=== PATIENT | male | born 1955 | race Caucasian/White ===

== ENCOUNTER 2018-07-03 10:30 | Emergency (ER) | payer OTHER, SELFPAY ==
[2018-07-03 10:35] VITALS: BP 195/80; PULSE 58; RESP 17; TEMP 36.9; O2SAT 100
--- NOTE | 2018-07-03 10:45 | ED.GENADULT ---
HPI - General Adult General Chief complaint: Hypertension Stated complaint: HYPERTENSION Time Seen by Provider: 07/03/18 10:39 Source: patient Mode of arrival: ambulatory Limitations: no limitations History of Present Illness HPI narrative: Patient is a 62-year-old male with a history of hypertension and leukemia not currently on any treatment and is on metoprolol and amlodipine and lisinopril. States that for the past week or so he has not felt very well. No specific symptoms. No chest pain. States that he does get some lightheadedness occasionally. States that he took his blood pressure this morning and the systolic was greater than 200 and the diastolic was greater than 100. He states that he normally runs in the 130s to 150s on his systolic. Patient called the nurse advice line informed him to come to the emergency department for evaluation. Related Data Allergies Allergy/AdvReac Type Severity Reaction Status Date / Time OFATUMUMAB Allergy Unknown pronounced Uncoded 02/17/18 12:30 vaso dilation Review of Systems Constitutional Reports fatigue and Denies fever(s) ENT Ears, Nose, Mouth, and Throat: Denies vertigo and Reports dizziness Cardiovascular Denies chest pain, Denies palpitations and Denies dyspnea Respiratory Denies cough and Denies dyspnea Gastrointestinal Gastrointestinal: Denies abdominal pain, Denies nausea and Denies vomiting Genitourinary Denies dysuria Musculoskeletal Denies myalgias, Denies arthralgias and Denies muscle cramps Integumentary/Breasts Denies lesions and Denies rash Neurologic Denies confusion, Denies vertigo and Reports dizziness Psychiatric Denies confusion Endocrine Reports fatigue and Denies palpitations Hematologic/Lymphatic Denies easy bleeding and Denies easy bruising [facility] Medical History Hypertension (Acute) Leukemia (Acute) Surgical History No pertinent past surgical history (Acute) Social History Smoking Status: Former smoker Exam Initial Vital Signs Initial Vital Signs: Vital Signs Temperature 98.4 F 07/03/18 10:35 Pulse Rate 58 L 07/03/18 10:35 Respiratory Rate 17 07/03/18 10:35 Blood Pressure 195/80 H 07/03/18 10:35 Pulse Oximetry 100 07/03/18 10:35 Const General: cooperative, healthy appearing, comfortable, well developed, well groomed and No acute distress Orientation: alert, awake and oriented x3 HENMT Head: normal to inspection and normocephalic Resp Effort & Inspection: normal respiratory effort Auscultation: clear to auscultation bilaterally Cardio Rate: regular rate Rhythm: regular rhythm Heart Sounds: murmur systolic III/ Pulses: radial pulses present GI Inspection: non-distended Palpation: soft, No firm and No tender Skin Lesions: no lesions Rashes: no rashes Neuro General: alert, awake and oriented x3 Cognition: normal cognition Speech: speech normal Gait: normal gait Motor: muscle tone normal throughout Sensory Exam: no sensory deficits noted Extrem General: normal to inspection, full ROM and No edema Psych Appearance: grossly normal and well kempt Course Orders Ordered: ED Orders 07/03/18 10:45 Basic Metabolic Panel Stat Complete Blood Count AUTO DIFF Stat 07/03/18 10:46 EKG-12 Lead Stat 07/03/18 11:09 XR chest 1V Stat Vital Signs - 8 hr 07/03/18 10:35 07/03/18 10:53 07/03/18 11:47 Temperature 98.4 F Pulse Rate 58 L 59 L 56 L Respiratory Rate 17 13 Blood Pressure 195/80 H Blood Pressure [Left Arm] 173/72 H 137/72 H Pulse Oximetry 100 99 95 07/03/18 12:07 07/03/18 12:39 Temperature Pulse Rate 55 L 53 L Respiratory Rate 14 15 Blood Pressure Blood Pressure [Left Arm] 135/72 H 140/67 H Pulse Oximetry 95 99 Medical Decision Making [facility] Narrative Medical decision making narrative: Patient's blood pressure improved while being here in the ER. He does have leukemia and white blood cell count is 70 is about his baseline. He has no symptoms while here. Have low suspicion for ACS, subarachnoid hemorrhage, renal failure, congestive heart failure. 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 He was given return precautions. He expressed understanding and agreement with plan. Lab Data Result diagrams: 07/03/18 10:45 07/03/18 10:45 Lab Results 07/03/18 07/03/18 Range/Units 10:45 10:45 WBC 70.1 H* (4.5-11.0) X10^3/uL RBC 4.42 L (4.5-5.9) X10^6/uL Hgb 14.2 (13.5-17.5) g/dL Hct 41.9 (41-53) % MCV 94.8 (80-100) fL MCH 32.2 (26-34) PG MCHC 34.0 (30-36) % RDW 15.8 H (11.6-14.8) % Plt Count 104 L (150-400) X10^3/uL Neut % (Auto) Not Reportable Lymph % (Auto) Not Reportable Conway % (Auto) Not Reportable Eos % (Auto) Not Reportable Baso % (Auto) Not Reportable Total Counted 100 Seg Neutrophils % 10.0 L (38-70) % Lymphocytes % (Manual) 83.0 H (25-45) % Atypical Lymphs % 1.0 H ( - 0) % Monocytes % (Manual) 4.0 (2-11) % Basophils % (Manual) 1.0 (0-1) % Metamyelocytes % 1.0 H (-0) % Neutrophils # (Manual) 7010 H (8867-8488) /uL Smudge Cells 2+ H RBC Morphology Not Reportable Anisocytosis 1+ H Sodium 142 (137-145) mmol/L Potassium 4.8 (3.4-5.1) mmol/L Chloride 101 (98-107) mmol/L Carbon Dioxide 32 (22-32) mmol/L BUN 16 (9-20) mg/dL Creatinine 1.10 (0.66-1.25) mg/dL Estimated GFR > 60.0 (>60) mL/min BUN/Creatinine Ratio 14.5 (6-22) Glucose 176 H (80-110) mg/dL Calcium 8.9 (8.4-10.2) mg/dL Imaging Data Chest x-ray: Radiologist's impression: [address] [address] XRay Report Signed Patient: Jona Hernadez BUZZ#: [id number] : 3Acct:[id number] Age/Sex: 62 / MDate of Service: 07/03/18 Loc: ED Accession Number: [id number] Procedure: XR chest 1V Ordering Provider: Lanker,Bong D.O. PROCEDURE: XR CHEST 1V INDICATIONS: SOB TECHNIQUE: One view of the chest was acquired. COMPARISON: [facility], CHEST 2 VIEW, 01/05/2015, 15:16. [facility], CHEST 2 VIEW, 12/26/2014, 20:43. FINDINGS: Surgical changes and devices: None. Lungs and pleura: No pleural effusions or pneumothorax. Lungs are clear. Mediastinum: Mediastinal contours appear normal. Heart size is normal. Bones and chest wall: No suspicious bony lesions. Overlying soft tissues appear unremarkable. IMPRESSION: Normal for age, source of current symptoms is not seen. Dictated by: Ranulfo Osorio M.D. on 07/03/2018 at 12:16 Approved by: Ranulfo Osorio M.D. on 07/03/2018 at 12:17 ECG Data Attestation: I personally reviewed and interpreted this ECG as follows: Prior ECG tracings: not available for review Interpretation: Sinus bradycardia Ventricular rate of 58 Left bundle branch block Normal axis Normal QTC Discharge Plan Departure Patient Disposition: Home Clinical Impression: Hypertension, Leukemia Instructions: Essential Hypertension Activity Restrictions/Additional Instructions: Recommend that you follow up with your tracer bullet section supervisor and your oncologist regarding your labs today. Take your blood pressure at home like we discussed. Return to the emergency department for any new or worsening symptoms
[2018-07-03 10:53] VITALS: BP 173/72; PULSE 59; RESP 13; O2SAT 99
--- NOTE | 2018-07-03 11:09 | DI.RAD.S_ITS ---
PROCEDURE: XR CHEST 1V INDICATIONS: SOB TECHNIQUE: One view of the chest was acquired. COMPARISON: [facility], CHEST 2 VIEW, 01/05/2015, 15:16. [facility], CHEST 2 VIEW, 12/26/2014, 20:43. FINDINGS: Surgical changes and devices: None. Lungs and pleura: No pleural effusions or pneumothorax. Lungs are clear. Mediastinum: Mediastinal contours appear normal. Heart size is normal. Bones and chest wall: No suspicious bony lesions. Overlying soft tissues appear unremarkable. IMPRESSION: Normal for age, source of current symptoms is not seen. Dictated by: Ranulfo Osorio M.D. on 07/03/2018 at 12:16 Approved by: Ranulfo Osorio M.D. on 07/03/2018 at 12:17
[2018-07-03 11:20] LABS: BUN Creatinine Ratio 14.5 (6-22); Blood Urea Nitrogen 16 mg/dL (9-20); Calcium 8.9 mg/dL (8.4-10.2); Carbon Dioxide 32 mmol/L (22-32); Chloride 101 mmol/L (98-107); Estimated Glomerular Filt Rate > 60.0 mL/min (>60); Glucose 176 mg/dL (80-110); HEMOLYSIS < 15 (0-50); Potassium 4.8 mmol/L (3.4-5.1); Sodium 142 mmol/L (137-145)
[2018-07-03 11:22] LABS: Hematocrit 41.9 % (41-53); Hemoglobin 14.2 g/dL (13.5-17.5); Mean Corpuscular Hemoglobin 32.2 PG (26-34); Mean Corpuscular Volume 94.8 fL (80-100); Platelet Count 104 X10^3/uL (150-400); Red Blood Cell Count 4.42 X10^6/uL (4.5-5.9); Red Cell Distribution Width 15.8 % (11.6-14.8)
[2018-07-03 11:30] LABS: Add Manual Diff / Slide Review YES; White Blood Cell Count 70.1 X10^3/uL (4.5-11.0)
[2018-07-03 11:47] VITALS: BP 137/72; PULSE 56; O2SAT 95
[2018-07-03 12:07] VITALS: BP 135/72; PULSE 55; RESP 14; O2SAT 95
[2018-07-03 12:34] LABS: Neutrophils Absolute Manual 7010 /uL (3000-5900); Smudge Cells 2+; Total Cells Counted 100
[2018-07-03 12:35] LABS: Anisocytosis 1+
[2018-07-03 12:39] VITALS: BP 140/67; PULSE 53; RESP 15; O2SAT 99
[2018-07-03 12:56] VITALS: BP 140/67; PULSE 50; RESP 13; O2SAT 99
== END 2018-07-03 12:58 | disposition home or self-care (01) ==
PROVIDERS: Emergency Provider Emergency Medicine
DX: C95.90 Leukemia, unspecified not having achieved remission (principal); I10 Essential (primary) hypertension
CPT/HCPCS: 36591; 71045; 80048; 85025; 93005; 93010; 93041; 99283; 99285

== ENCOUNTER → 2018-10-05 11:01 | Outpatient (CLI) | payer MEDICARE, OTHER, SELFPAY ==
[2018-10-05 12:33] LABS: Cholesterol 166 mg/dL (140-199); HDL Cholesterol 28 mg/dL (40-60); LDL Cholesterol Calculated 66 mg/dL (<100); Triglycerides 359 mg/dL (35-150)
[2018-10-05 14:20] LABS: Vitamin D 25 Hydroxy (D3) 30.8 ng/mL (30.0-100.0)
== END ==
PROVIDERS: PCP Student in an Organized Health Care Education/Training Program; Visit Provider Student in an Organized Health Care Education/Training Program
DX: E55.9 Vitamin D deficiency, unspecified (principal); Z13.220 Encounter for screening for lipoid disorders
CPT/HCPCS: 36415; 80061; 82306

== ENCOUNTER → 2018-10-19 07:28 | Outpatient (CLI) | payer MEDICARE, OTHER, SELFPAY ==
--- NOTE | 2018-10-19 07:29 | DI.US.S_ITS ---
PROCEDURE: US ABD AORTA ANEURYSM SCREEN INDICATIONS: HISTORY OF SMOKING TECHNIQUE: Real time scanning was performed of the aorta and iliac arteries, with image documentation. COMPARISON: [facility], CT, THORAX WITHOUT CONTRAST, 12/27/2014, 9:43. FINDINGS: Aorta: Proximal aortic is obscured by overlying bowel gas. Mid-aorta measures 2.1 cm. Distal aortic diameter is 1.8 cm. Iliac arteries: Right common iliac artery measures 0.9 cm. Left common iliac artery measures 0.9 cm. IMPRESSION: No evidence of abdominal aortic aneurysm. Dictated by: Levon Monson M.D. on 10/19/2018 at 8:15 Approved by: Levon Monson M.D. on 10/19/2018 at 8:17
== END ==
PROVIDERS: PCP Student in an Organized Health Care Education/Training Program; Visit Provider Student in an Organized Health Care Education/Training Program
DX: Z13.6 Encounter for screening for cardiovascular disorders (principal); Z87.891 Personal history of nicotine dependence
CPT/HCPCS: 76706

== ENCOUNTER → 2018-11-22 09:27 | Outpatient (CLI) | payer MEDICARE, OTHER, SELFPAY ==
[2018-11-22 10:06] LABS: Hematocrit 36.6 % (41-53); Mean Corpuscular HGB Conc 32.8 % (30-36); Mean Corpuscular Volume 97.6 fL (80-100); Platelet Count 77 X10^3/uL (150-400); Red Blood Cell Count 3.75 X10^6/uL (4.5-5.9)
[2018-11-22 10:15] LABS: Add Manual Diff / Slide Review YES; White Blood Cell Count 292.9 X10^3/uL (4.5-11.0)
[2018-11-22 10:20] LABS: BUN Creatinine Ratio 20.8 (6-22); Blood Urea Nitrogen 25 mg/dL (9-20); Calcium 8.8 mg/dL (8.4-10.2); Carbon Dioxide 29 mmol/L (22-32); Chloride 98 mmol/L (98-107); Estimated Glomerular Filt Rate > 60.0 mL/min (>60); Glucose 141 mg/dL (80-110); HEMOLYSIS 47 (0-50); Sodium 137 mmol/L (137-145)
[2018-11-22 10:25] LABS: Potassium 5.9 mmol/L (3.4-5.1)
[2018-11-22 10:29] LABS: Smudge Cells 1+; Total Cells Counted 100
[2018-11-22 10:38] LABS: Neutrophils Absolute Manual 87870 /uL (3000-5900); Nucleated Red Blood Cells 5 #/Diff
[2018-11-22 10:39] LABS: Anisocytosis 3+; Ovalocytes 2+; Poikilocytosis 2+; Polychromasia 2+
== END ==
PROVIDERS: Family Provider Internal Medicine Medical Oncology; PCP Student in an Organized Health Care Education/Training Program; Visit Provider Internal Medicine Medical Oncology
DX: C91.10 Chronic lymphocytic leukemia of B-cell type not having achieved remission (principal)
CPT/HCPCS: 36415; 80048; 85025

== ENCOUNTER → 2018-11-29 10:41 | Outpatient (CLI) | payer MEDICARE, OTHER, SELFPAY ==
[2018-11-29 12:27] LABS: Hematocrit 34.3 % (41-53); Hemoglobin 11.3 g/dL (13.5-17.5); Mean Corpuscular HGB Conc 32.9 % (30-36); Mean Corpuscular Hemoglobin 32.2 PG (26-34); Mean Corpuscular Volume 97.6 fL (80-100); Platelet Count 76 X10^3/uL (150-400); Red Blood Cell Count 3.52 X10^6/uL (4.5-5.9); Red Cell Distribution Width 16.6 % (11.6-14.8)
[2018-11-29 13:55] LABS: Add Manual Diff / Slide Review YES
[2018-11-29 14:21] LABS: Neutrophils Absolute Manual 9840 /uL (3000-5900); Smudge Cells 2+; Total Cells Counted 100
== END ==
PROVIDERS: PCP Student in an Organized Health Care Education/Training Program; Visit Provider Internal Medicine Medical Oncology
DX: C91.12 Chronic lymphocytic leukemia of B-cell type in relapse (principal)
CPT/HCPCS: 36415; 85025

== ENCOUNTER → 2018-12-06 08:48 | Outpatient (CLI) | payer MEDICARE, OTHER, SELFPAY ==
[2018-12-06 10:07] LABS: Hematocrit 33.6 % (41-53); Hemoglobin 11.1 g/dL (13.5-17.5); Mean Corpuscular HGB Conc 33.2 % (30-36); Mean Corpuscular Hemoglobin 32.3 PG (26-34); Mean Corpuscular Volume 97.5 fL (80-100); Platelet Count 94 X10^3/uL (150-400); Red Blood Cell Count 3.44 X10^6/uL (4.5-5.9); Red Cell Distribution Width 16.5 % (11.6-14.8)
[2018-12-06 10:39] LABS: Add Manual Diff / Slide Review YES
[2018-12-06 10:40] LABS: White Blood Cell Count 248.8 X10^3/uL (4.5-11.0)
[2018-12-06 10:54] LABS: Neutrophils Absolute Manual 4976 /uL (3000-5900); Total Cells Counted 100
[2018-12-06 10:55] LABS: Anisocytosis 1+; Smudge Cells 2+
== END ==
PROVIDERS: Family Provider Student in an Organized Health Care Education/Training Program; PCP Student in an Organized Health Care Education/Training Program; Visit Provider Internal Medicine Medical Oncology
DX: C91.12 Chronic lymphocytic leukemia of B-cell type in relapse (principal)
CPT/HCPCS: 36415; 85025

== ENCOUNTER 2018-12-14 11:36 | Emergency (ER) | payer MEDICARE, OTHER, SELFPAY ==
[2018-12-14 11:42] VITALS: BP 140/75; PULSE 65; RESP 14; TEMP 36.1; O2SAT 98
--- NOTE | 2018-12-14 11:55 | DI.RAD.S_ITS ---
PROCEDURE: XR CHEST 1V INDICATIONS: suspected sepsis TECHNIQUE: One view of the chest was acquired. COMPARISON: [facility], CR, XR CHEST 1V, 07/03/2018, 11:18. FINDINGS: Surgical changes and devices: None. Lungs and pleura: Lungs are clear. No pleural effusions or pneumothorax. Mediastinum: Mediastinal contours appear normal. Heart size is normal. Bones and chest wall: No suspicious bony lesions. Overlying soft tissues appear unremarkable. IMPRESSION: No acute cardiopulmonary disease process. Dictated by: Sarah Guadarrama MD, PhD on 12/14/2018 at 12:09 Approved by: Sarah Guadarrama MD, PhD on 12/14/2018 at 12:10
[2018-12-14 12:27] LABS: INR 1.3 (0.9-1.3); Prothrombin Time 14.8 SECONDS (10.1-12.7)
[2018-12-14 12:30] LABS: PTT Partial Thromboplastin Tim 31 SECONDS (26.4-36.2)
[2018-12-14 12:32] LABS: Hematocrit 33.1 % (41-53); Hemoglobin 10.9 g/dL (13.5-17.5); Mean Corpuscular HGB Conc 32.9 % (30-36); Mean Corpuscular Volume 97.4 fL (80-100); Platelet Count 89 X10^3/uL (150-400); Red Cell Distribution Width 16.7 % (11.6-14.8)
[2018-12-14 12:33] LABS: Alanine Aminotransferase 399 IU/L (21-72); Albumin 4.5 g/dL (3.5-5.0); Albumin Globulin Ratio 1.7 (1.0-2.8); Alkaline Phosphatase 134 U/L (38-126); Aspartate Aminotransferase 166 IU/L (17-59); Bilirubin Total 1.5 mg/dL (0.2-1.3); Blood Urea Nitrogen 24 mg/dL (9-20); Calcium 8.9 mg/dL (8.4-10.2); Carbon Dioxide 26 mmol/L (22-32); Chloride 96 mmol/L (98-107); Estimated Glomerular Filt Rate > 60.0 mL/min (>60); Globulin 2.7 g/dL (1.7-4.1); Glucose 132 mg/dL (80-110); HEMOLYSIS < 15 (0-50); Lipase 32 U/L (23-300); Potassium 4.7 mmol/L (3.4-5.1); Sodium 134 mmol/L (137-145); Total Protein 7.2 g/dL (6.3-8.2)
[2018-12-14 12:37] LABS: Add Manual Diff / Slide Review YES; White Blood Cell Count 301.9 X10^3/uL (4.5-11.0)
--- NOTE | 2018-12-14 12:44 | PC.NURSE ---
blood in urine/ dark ely colored. ua sent
[2018-12-14 12:49] LABS: Neutrophils Absolute Manual 12076 /uL (3000-5900); Total Cells Counted 100
[2018-12-14 12:51] LABS: Anisocytosis 1+; Macrocytosis 1+; Procalcitonin 5.62 ng/mL (<0.5)
[2018-12-14 12:58] VITALS: BP 135/55; PULSE 64; RESP 13; O2SAT 97
[2018-12-14 13:15] LABS: Lactate (Lactic Acid) 1.1 mmol/L (0.7-2.1)
[2018-12-14 13:19] LABS: Appearance Urine UA CLOUDY; Bilirubin Urine UA 1+ (NEGATIVE); Glucose Urine UA NEGATIVE (Negative); Ketones Urine UA NEGATIVE (NEGATIVE); Leukocyte Esterase Urine UA TRACE (NEGATIVE); Nitrite Urine UA NEGATIVE (Negative); Occult Blood Urine UA 3+ (Negative); Protein Urine UA 2+ (Negative); Specific Gravity Urine UA 1.025 (1.000-1.035); Urobilinogen Urine UA 0.2 E.U./dL (0.2); pH Urine UA 5.5 (4.5-8.0)
[2018-12-14 13:21] LABS: Color Urine UA RED
[2018-12-14 13:26] LABS: Ictotest Urine Negative (Negative)
[2018-12-14 13:28] LABS: Amorphous Sediment Urine 1+; Bacteria Urine Few (2-10); Culture Indicated Urine Specimen Cultured; RBC Urine >100/HPF (0-5/HPF); Squamous Epithelial Cell Urine 0-1 /HPF; WBC Urine 5-10/HPF (0-5/HPF)
[2018-12-14] MEDS: SODIUM CHLORIDE 0.9% 1,000 ML 1000 ML IV (13:37)
[2018-12-14 14:00] VITALS: BP 157/65; PULSE 63; RESP 17
--- NOTE | 2018-12-14 14:09 | ED.FEVER ---
HPI - Fever General Chief Complaint: Fever Stated Complaint: UNABLE TO PEE AND BIT OF BLOOD WHEN ABLE TO GO Time Seen by Provider: 12/14/18 11:50 Source: patient and family Mode of arrival: ambulatory Limitations: no limitations History of Present Illness HPI Narrative: 63-year-old male presents to the emergency department with his and a chief complaint of episodes of fever for the past few days. He carries the diagnosis of CLL and is managed by the [facility]. His last chemotherapy was 2 days ago. He denies any specific symptoms such as runny nose, sore throat or cough. He has no headache, chest pain or shortness of breath. He did have an episode of abdominal pain a few days ago but that has since resolved. He denies nausea, vomiting or diarrhea. He does state that he had an inability to urinate earlier today and had on occasion past small blood clots. He admits to mild dysuria. He was sent here by his oncologist. MD complaint: fever Onset (ago): minute(s) Temperature Source: oral Context: on chemotherapy Associated symptoms: rigors Relieving factors: nothing Exacerbating factors: nothing Treatments prior to arrival fever: none Related Data Home Medications Medication Instructions Recorded Confirmed amlodipine 5 mg tablet 5 mg PO QPM 10/05/18 12/14/18 diphenhydramine 50 mg capsule 50 mg PO BEDTIME 10/05/18 12/14/18 lisinopril 20 mg tablet 20 mg PO QPM 10/05/18 12/14/18 aspirin 81 mg tablet,delayed 81 mg PO DAILY 10/06/18 12/14/18 release acalabrutinib [Calquence] 100 mg PO BID 12/14/18 12/14/18 allopurinol 300 mg PO DAILY 12/14/18 12/14/18 famotidine 1 tab PO DAILY 12/14/18 12/14/18 ibrutinib [Imbruvica] 240 mg PO BID 12/14/18 12/14/18 metoprolol succinate 75 mg PO BID 12/14/18 12/14/18 Previous Rx's Medication Instructions Recorded atorvastatin 40 mg tablet 40 mg PO BEDTIME #30 tab 10/06/18 cephalexin [Keflex] 500 mg PO QID 7 Days #28 cap 12/14/18 tamsulosin [Flomax] 0.4 mg PO DAILY #10 cap 12/14/18 Allergies Allergy/AdvReac Type Severity Reaction Status Date / Time OFATUMUMAB Allergy Unknown pronounced Uncoded 12/14/18 11:48 vaso dilation Review of Systems Constitutional Denies chills, Reports fever(s), Denies lethargy and Denies weakness Eyes Denies change in vision, Denies eye discharge, Denies irritation and Denies loss of vision ENT Ears, Nose, Mouth, and Throat: Denies change in voice, Denies neck pain and Denies sore throat Cardiovascular Denies chest pain, Denies irregular heart rhythm, Denies lightheadedness, Denies palpitations, Denies dyspnea, Denies dyspnea on exertion and Denies orthopnea Respiratory Denies cough, Denies dyspnea, Denies dyspnea on exertion and Denies wheezing Gastrointestinal Gastrointestinal: Denies abdominal pain, Denies change in bowel habits, Denies diarrhea, Denies nausea and Denies vomiting Genitourinary Reports hematuria, Denies flank pain, Reports urinary hesitancy, Denies urinary incontinence and Denies urinary urgency Musculoskeletal Denies neck pain Integumentary/Breasts Denies pruritus, Denies erythema, Denies rash and Denies wounds Neurologic Denies confusion, Denies loss of vision and Denies weakness Psychiatric Denies anxiety, Denies confusion, Denies depression, Denies homicidal ideation and Denies suicidal ideation Endocrine Denies palpitations Hematologic/Lymphatic Denies easy bruising Allergic/Immunologic Denies wheezing [facility] Medical History Hypertension (Acute) Leukemia (Acute) Surgical History History of allogeneic stem cell transplant (Acute) No pertinent past surgical history (Acute) Social History Smoking Status: Former smoker Social History Smoking Status: Former smoker Exam Narrative Exam Narrative: GENERAL: This is a well-nourished, well-developed patient, in mild distress. HEAD: Atraumatic. Normocephalic. No temporal or scalp tenderness. EYES: Pupils equal round and reactive. Extraocular motions intact. No scleral icterus. No injection or drainage. ENT: Nose without bleeding, purulent drainage or septal hematoma. Throat without erythema, tonsillar hypertrophy or exudate. Uvula midline. Airway patent. NECK: Trachea midline. No JVD or lymphadenopathy. Supple, nontender, no meningeal signs. CARDIOVASCULAR: Regular rate and rhythm without murmurs, gallops, or rubs. RESPIRATORY: Clear to auscultation. Breath sounds equal bilaterally. No wheezes, rales, or rhonchi. GASTROINTESTINAL: Abdomen soft, non-tender, nondistended. No hepato-splenomegaly, or palpable masses. No guarding. EXTREMITIES: No clubbing, cyanosis, or edema. No joint tenderness, effusion, or edema noted. BACK: Nontender without deformity or crepitance. No flank tenderness. NEURO: AOx3. SKIN: No rash or erythema. Initial Vital Signs Initial Vital Signs: Vital Signs Temperature 97.0 F L 12/14/18 11:42 Pulse Rate 65 12/14/18 11:42 Respiratory Rate 14 12/14/18 11:42 Blood Pressure 140/75 12/14/18 11:42 Pulse Oximetry 98 12/14/18 11:42 Course Orders Ordered: ED Orders 12/14/18 11:55 XR chest 1V Stat 12/14/18 12:10 Complete Blood Count AUTO DIFF Stat Comprehensive Metabolic Panel Stat Lipase Stat Partial Thromboplastin Time Stat Procalcitonin Stat Prothrombin Time INR Stat 12/14/18 12:25 Blood Culture Stat Lactate (Lactic Acid) Stat 12/14/18 12:38 Ictotest Urine Stat Urinalysis and Microscopic Stat Urine Culture Stat 12/14/18 14:30 Influenza A and B by PCR Rapid Stat Discontinued Medications Sodium Chloride (Normal Saline 0.9%) 1,000 mls @ 1,000 mls/hr IV BOLUS ONE Stop: 12/14/18 12:54 Last Infusion: 12/14/18 15:50 Dose: 0 mls/hr Admin: 12/14/18 13:37 Dose: 1,000 mls/hr Ceftriaxone Sodium/Dextrose (Rocephin) 1 gm in 50 mls @ 100 mls/hr IV NOW ONE Stop: 12/14/18 14:45 Last Infusion: 12/14/18 15:50 Dose: 0 mls/hr Admin: 12/14/18 14:36 Dose: 100 mls/hr Reevaluation(s) Reevaluation #1: Bladder scan notes greater than 500 cc. Shaw catheter placed which notes clear reddish urine with occasional clots Consultations Consultation #1: A spoken to patient's oncologist whom is comfortable with patient going home after 1 dose of IV antibiotics on a prescription to treat his UTI. He would prefer the patient not Shaw catheter but believes that to my discretion, my fear being that patient will return with recurrence of urinary retention. I will place a call to Urology for consultation Urology at the [facility] agree that the placed and a Shaw catheter is most appropriate to keep the patient out of the emergency department moving forward. They are happy to see him in follow-up and we will treat the patient for urinary tract infection Vital Signs - 8 hr 12/14/18 11:42 12/14/18 12:58 12/14/18 14:00 Temperature 97.0 F L Pulse Rate 65 64 63 Respiratory Rate 14 13 17 Blood Pressure 140/75 Blood Pressure [Left Arm] 135/55 L 157/65 H Pulse Oximetry 98 97 12/14/18 15:00 Temperature Pulse Rate 66 Respiratory Rate 16 Blood Pressure Blood Pressure [Left Arm] 150/61 H Pulse Oximetry 98 MDM - Fever Lab Data Result diagrams: 12/14/18 12:10 12/14/18 12:10 Lab Results 12/14/18 12/14/18 12/14/18 Range/Units 12:10 12:10 12:10 WBC 301.9 H* (4.5-11.0) X10^3/uL RBC 3.40 L (4.5-5.9) X10^6/uL Hgb 10.9 L (13.5-17.5) g/dL Hct 33.1 L (41-53) % MCV 97.4 (80-100) fL MCH 32.0 (26-34) PG MCHC 32.9 (30-36) % RDW 16.7 H (11.6-14.8) % Plt Count 89 L (150-400) X10^3/uL Neut % (Auto) Not Reportable Lymph % (Auto) Not Reportable Henry % (Auto) Not Reportable Eos % (Auto) Not Reportable Baso % (Auto) Not Reportable Lymph # (Auto) Not Reportable Henry # (Auto) Not Reportable Baso # (Auto) Not Reportable Total Counted 100 Seg Neutrophils % 4.0 L (38-70) % Lymphocytes % (Manual) 9.0 L (25-45) % Atypical Lymphs % 87.0 H ( - 0) % Neutrophils # (Manual) 28346 H (4448-3047) /uL RBC Morphology See below Anisocytosis 1+ H Macrocytosis 1+ H PT 14.8 H (10.1-12.7) SECONDS INR 1.3 (0.9-1.3) APTT 31 (26.4-36.2) SECONDS Sodium (137-145) mmol/L Potassium (3.4-5.1) mmol/L Chloride (98-107) mmol/L Carbon Dioxide (22-32) mmol/L BUN (9-20) mg/dL Creatinine (0.66-1.25) mg/dL Estimated GFR (>60) mL/min BUN/Creatinine Ratio (6-22) Glucose (80-110) mg/dL Lactate (0.7-2.1) mmol/L Calcium (8.4-10.2) mg/dL Total Bilirubin (0.2-1.3) mg/dL AST (17-59) IU/L ALT (21-72) IU/L Alkaline Phosphatase (38-126) U/L Total Protein (6.3-8.2) g/dL Albumin (3.5-5.0) g/dL Globulin (1.7-4.1) g/dL Albumin/Globulin Ratio (1.0-2.8) Lipase (23-300) U/L Procalcitonin 5.62 H (<0.5) ng/mL Urine Color Urine Appearance Urine pH (4.5-8.0) Ur Specific Duarte (1.000-1.035) Urine Protein (Negative) Urine Glucose (UA) (Negative) g/dL Urine Ketones (NEGATIVE) Urine Occult Blood (Negative) Urine Nitrate (Negative) Urine Bilirubin (NEGATIVE) Urine Ictotest (Negative) Urine Urobilinogen (0.2) E.U./dL Ur Leukocyte Esterase (NEGATIVE) Urine RBC (0-5/HPF) Urine WBC (0-5/HPF) Ur Squamous Epith Cells Amorphous Sediment Urine Bacteria (None) Ur Culture Indicated? Influenza A & B (PCR) (Negative) 12/14/18 12/14/18 12/14/18 Range/Units 12:10 12:25 12:38 WBC (4.5-11.0) X10^3/uL RBC (4.5-5.9) X10^6/uL Hgb (13.5-17.5) g/dL Hct (41-53) % MCV (80-100) fL MCH (26-34) PG MCHC (30-36) % RDW (11.6-14.8) % Plt Count (150-400) X10^3/uL Neut % (Auto) Lymph % (Auto) Henry % (Auto) Eos % (Auto) Baso % (Auto) Lymph # (Auto) Henry # (Auto) Baso # (Auto) Total Counted Seg Neutrophils % (38-70) % Lymphocytes % (Manual) (25-45) % Atypical Lymphs % ( - 0) % Neutrophils # (Manual) (0948-7912) /uL RBC Morphology Anisocytosis Macrocytosis PT (10.1-12.7) SECONDS INR (0.9-1.3) APTT (26.4-36.2) SECONDS Sodium 134 L (137-145) mmol/L Potassium 4.7 (3.4-5.1) mmol/L Chloride 96 L (98-107) mmol/L Carbon Dioxide 26 (22-32) mmol/L BUN 24 H (9-20) mg/dL Creatinine 1.20 (0.66-1.25) mg/dL Estimated GFR > 60.0 (>60) mL/min BUN/Creatinine Ratio 20.0 (6-22) Glucose 132 H (80-110) mg/dL Lactate 1.1 (0.7-2.1) mmol/L Calcium 8.9 (8.4-10.2) mg/dL Total Bilirubin 1.5 H (0.2-1.3) mg/dL AST 166 H (17-59) IU/L ALT 399 H (21-72) IU/L Alkaline Phosphatase 134 H (38-126) U/L Total Protein 7.2 (6.3-8.2) g/dL Albumin 4.5 (3.5-5.0) g/dL Globulin 2.7 (1.7-4.1) g/dL Albumin/Globulin Ratio 1.7 (1.0-2.8) Lipase 32 (23-300) U/L Procalcitonin (<0.5) ng/mL Urine Color Red Urine Appearance Cloudy Urine pH 5.5 (4.5-8.0) Ur Specific Duarte 1.025 (1.000-1.035) Urine Protein 2+ H (Negative) Urine Glucose (UA) Negative (Negative) g/dL Urine Ketones Negative (NEGATIVE) Urine Occult Blood 3+ H (Negative) Urine Nitrate Negative (Negative) Urine Bilirubin 1+ H (NEGATIVE) Urine Ictotest Negative (Negative) Urine Urobilinogen 0.2 (0.2) E.U./dL Ur Leukocyte Esterase Trace H (NEGATIVE) Urine RBC >100/hpf (0-5/HPF) Urine WBC 5-10/hpf H (0-5/HPF) Ur Squamous Epith Cells 0-1 /hpf Amorphous Sediment 1+ Urine Bacteria Few (2-10) H (None) Ur Culture Indicated? Specimen cultured Influenza A & B (PCR) (Negative) 12/14/18 Range/Units 14:30 WBC (4.5-11.0) X10^3/uL RBC (4.5-5.9) X10^6/uL Hgb (13.5-17.5) g/dL Hct (41-53) % MCV (80-100) fL MCH (26-34) PG MCHC (30-36) % RDW (11.6-14.8) % Plt Count (150-400) X10^3/uL Neut % (Auto) Lymph % (Auto) Henry % (Auto) Eos % (Auto) Baso % (Auto) Lymph # (Auto) Henry # (Auto) Baso # (Auto) Total Counted Seg Neutrophils % (38-70) % Lymphocytes % (Manual) (25-45) % Atypical Lymphs % ( - 0) % Neutrophils # (Manual) (2683-6197) /uL RBC Morphology Anisocytosis Macrocytosis PT (10.1-12.7) SECONDS INR (0.9-1.3) APTT (26.4-36.2) SECONDS Sodium (137-145) mmol/L Potassium (3.4-5.1) mmol/L Chloride (98-107) mmol/L Carbon Dioxide (22-32) mmol/L BUN (9-20) mg/dL Creatinine (0.66-1.25) mg/dL Estimated GFR (>60) mL/min BUN/Creatinine Ratio (6-22) Glucose (80-110) mg/dL Lactate (0.7-2.1) mmol/L Calcium (8.4-10.2) mg/dL Total Bilirubin (0.2-1.3) mg/dL AST (17-59) IU/L ALT (21-72) IU/L Alkaline Phosphatase (38-126) U/L Total Protein (6.3-8.2) g/dL Albumin (3.5-5.0) g/dL Globulin (1.7-4.1) g/dL Albumin/Globulin Ratio (1.0-2.8) Lipase (23-300) U/L Procalcitonin (<0.5) ng/mL Urine Color Urine Appearance Urine pH (4.5-8.0) Ur Specific Duarte (1.000-1.035) Urine Protein (Negative) Urine Glucose (UA) (Negative) g/dL Urine Ketones (NEGATIVE) Urine Occult Blood (Negative) Urine Nitrate (Negative) Urine Bilirubin (NEGATIVE) Urine Ictotest (Negative) Urine Urobilinogen (0.2) E.U./dL Ur Leukocyte Esterase (NEGATIVE) Urine RBC (0-5/HPF) Urine WBC (0-5/HPF) Ur Squamous Epith Cells Amorphous Sediment Urine Bacteria (None) Ur Culture Indicated? Influenza A & B (PCR) Negative (Negative) Discharge Plan Departure Patient Disposition: Home Clinical Impression: Acute UTI, Acute urinary retention Discharge Date/Time: 12/14/18 16:01 Interventions: ED Discharge Assessment Last Done: 12/14/18 15:51 Instructions: DI for Urinary Tract Infection (UTI) Activity Restrictions/Additional Instructions: *You have been diagnosed with [ acute UTI, urinary retention ] *What to do: *Take medications as directed *Follow up with [facility], call for an appointment. Let them know you were seen in the Emergency Department and that we ask that you be seen in follow up *Additional option for follow up is the [facility] at please contact Dr. Gonzalez's nurse at [phone] for any issues or problems or you can call the front end drupal developer for routine follow up appointment at [phone] *Return to ER if you should have any new, worsening or concerning symptoms Prescriptions: New cephalexin [Keflex] 500 mg capsule 500 mg PO QID 7 Days Qty: 28 RF: 0 tamsulosin [Flomax] 0.4 mg capsule 0.4 mg PO DAILY Qty: 10 RF: 0 No Action lisinopril 20 mg tablet 20 mg PO QPM RF: 0 amlodipine 5 mg tablet 5 mg PO QPM RF: 0 diphenhydramine HCl 50 mg capsule 50 mg PO BEDTIME RF: 0 atorvastatin 40 mg tablet 40 mg PO BEDTIME Qty: 30 RF: 5 aspirin 81 mg tablet,delayed release (DR/EC) 81 mg PO DAILY RF: 0 metoprolol succinate 50 mg tablet extended release 24 hr 75 mg PO BID RF: 0 allopurinol 300 mg tablet 300 mg PO DAILY RF: 0 ibrutinib [Imbruvica] 140 mg capsule 240 mg PO BID RF: 0 acalabrutinib [Calquence] 100 mg capsule 100 mg PO BID RF: 0 famotidine 1 tab PO DAILY RF: 0 Referrals: Michel Bran MD [Primary Care Provider] - Hay Pope MD [Non-Staff] -
[2018-12-14] MEDS: CEFTRIAXONE 1 GM/50 ML FROZ.PIGGY IV (14:36)
--- NOTE | 2018-12-14 14:39 | ED_ITS ---
HPI - Fever General Chief Complaint: Fever Stated Complaint: UNABLE TO PEE AND BIT OF BLOOD WHEN ABLE TO GO Time Seen by Provider: 12/14/18 11:50 Source: patient and family Mode of arrival: ambulatory Limitations: no limitations History of Present Illness HPI Narrative: 63-year-old male presents to the emergency department with his and a chief complaint of episodes of fever for the past few days. He carries the diagnosis of CLL and is managed by the [facility]. His last chemotherapy was 2 days ago. He denies any specific symptoms such as runny nose, sore throat or cough. He has no headache, chest pain or shortness of breath. He did have an episode of abdominal pain a few days ago but that has since resolved. He denies nausea, vomiting or diarrhea. He does state that he had an inability to urinate earlier today and had on occasion past small blood clots. He admits to mild dysuria. He was sent here by his oncologist. MD complaint: fever Onset (ago): minute(s) Temperature Source: oral Context: on chemotherapy Associated symptoms: rigors Relieving factors: nothing Exacerbating factors: nothing Treatments prior to arrival fever: none Related Data Home Medications Medication Instructions Recorded Confirmed amlodipine 5 mg tablet 5 mg PO QPM 10/05/18 12/14/18 diphenhydramine 50 mg capsule 50 mg PO BEDTIME 10/05/18 12/14/18 lisinopril 20 mg tablet 20 mg PO QPM 10/05/18 12/14/18 aspirin 81 mg tablet,delayed 81 mg PO DAILY 10/06/18 12/14/18 release acalabrutinib [Calquence] 100 mg PO BID 12/14/18 12/14/18 allopurinol 300 mg PO DAILY 12/14/18 12/14/18 famotidine 1 tab PO DAILY 12/14/18 12/14/18 ibrutinib [Imbruvica] 240 mg PO BID 12/14/18 12/14/18 metoprolol succinate 75 mg PO BID 12/14/18 12/14/18 Previous Rx's Medication Instructions Recorded atorvastatin 40 mg tablet 40 mg PO BEDTIME #30 tab 10/06/18 cephalexin [Keflex] 500 mg PO QID 7 Days #28 cap 12/14/18 tamsulosin [Flomax] 0.4 mg PO DAILY #10 cap 12/14/18 Allergies Allergy/AdvReac Type Severity Reaction Status Date / Time OFATUMUMAB Allergy Unknown pronounced Uncoded 12/14/18 11:48 vaso dilation Review of Systems Constitutional Denies chills, Reports fever(s), Denies lethargy and Denies weakness Eyes Denies change in vision, Denies eye discharge, Denies irritation and Denies loss of vision ENT Ears, Nose, Mouth, and Throat: Denies change in voice, Denies neck pain and Denies sore throat Cardiovascular Denies chest pain, Denies irregular heart rhythm, Denies lightheadedness, Denies palpitations, Denies dyspnea, Denies dyspnea on exertion and Denies orthopnea Respiratory Denies cough, Denies dyspnea, Denies dyspnea on exertion and Denies wheezing Gastrointestinal Gastrointestinal: Denies abdominal pain, Denies change in bowel habits, Denies diarrhea, Denies nausea and Denies vomiting Genitourinary Reports hematuria, Denies flank pain, Reports urinary hesitancy, Denies urinary incontinence and Denies urinary urgency Musculoskeletal Denies neck pain Integumentary/Breasts Denies pruritus, Denies erythema, Denies rash and Denies wounds Neurologic Denies confusion, Denies loss of vision and Denies weakness Psychiatric Denies anxiety, Denies confusion, Denies depression, Denies homicidal ideation and Denies suicidal ideation Endocrine Denies palpitations Hematologic/Lymphatic Denies easy bruising Allergic/Immunologic Denies wheezing [facility] Medical History Hypertension (Acute) Leukemia (Acute) Surgical History History of allogeneic stem cell transplant (Acute) No pertinent past surgical history (Acute) Social History Smoking Status: Former smoker Social History Smoking Status: Former smoker Exam Narrative Exam Narrative: GENERAL: This is a well-nourished, well-developed patient, in mild distress. HEAD: Atraumatic. Normocephalic. No temporal or scalp tenderness. EYES: Pupils equal round and reactive. Extraocular motions intact. No scleral icterus. No injection or drainage. ENT: Nose without bleeding, purulent drainage or septal hematoma. Throat without erythema, tonsillar hypertrophy or exudate. Uvula midline. Airway patent. NECK: Trachea midline. No JVD or lymphadenopathy. Supple, nontender, no meningeal signs. CARDIOVASCULAR: Regular rate and rhythm without murmurs, gallops, or rubs. RESPIRATORY: Clear to auscultation. Breath sounds equal bilaterally. No wheezes , rales, or rhonchi. GASTROINTESTINAL: Abdomen soft, non-tender, nondistended. No hepato-splenomegaly , or palpable masses. No guarding. EXTREMITIES: No clubbing, cyanosis, or edema. No joint tenderness, effusion, or edema noted. BACK: Nontender without deformity or crepitance. No flank tenderness. NEURO: AOx3. SKIN: No rash or erythema. Initial Vital Signs Initial Vital Signs: Vital Signs Temperature 97.0 F L 12/14/18 11:42 Pulse Rate 65 12/14/18 11:42 Respiratory Rate 14 12/14/18 11:42 Blood Pressure 140/75 12/14/18 11:42 Pulse Oximetry 98 12/14/18 11:42 Course Orders Ordered: ED Orders 12/14/18 11:55 XR chest 1V Stat 12/14/18 12:10 Complete Blood Count AUTO DIFF Stat Comprehensive Metabolic Panel Stat Lipase Stat Partial Thromboplastin Time Stat Procalcitonin Stat Prothrombin Time INR Stat 12/14/18 12:25 Blood Culture Stat Lactate (Lactic Acid) Stat 12/14/18 12:38 Ictotest Urine Stat Urinalysis and Microscopic Stat Urine Culture Stat 12/14/18 14:30 Influenza A and B by PCR Rapid Stat Discontinued Medications Sodium Chloride (Normal Saline 0.9%) 1,000 mls @ 1,000 mls/hr IV BOLUS ONE Stop: 12/14/18 12:54 Last Infusion: 12/14/18 15:50 Dose: 0 mls/hr Admin: 12/14/18 13:37 Dose: 1,000 mls/hr Ceftriaxone Sodium/Dextrose (Rocephin) 1 gm in 50 mls @ 100 mls/hr IV NOW ONE Stop: 12/14/18 14:45 Last Infusion: 12/14/18 15:50 Dose: 0 mls/hr Admin: 12/14/18 14:36 Dose: 100 mls/hr Reevaluation(s) Reevaluation #1: Bladder scan notes greater than 500 cc. Shaw catheter placed which notes clear reddish urine with occasional clots Consultations Consultation #1: A spoken to patient's oncologist whom is comfortable with patient going home after 1 dose of IV antibiotics on a prescription to treat his UTI. He would prefer the patient not Shaw catheter but believes that to my discretion, my fear being that patient will return with recurrence of urinary retention. I will place a call to Urology for consultation Urology at the [facility] agree that the placed and a Shaw catheter is most appropriate to keep the patient out of the emergency department moving forward. They are happy to see him in follow-up and we will treat the patient for urinary tract infection Vital Signs - 8 hr 12/14/18 11:42 12/14/18 12:58 12/14/18 14:00 Temperature 97.0 F L Pulse Rate 65 64 63 Respiratory Rate 14 13 17 Blood Pressure 140/75 Blood Pressure [Left Arm] 135/55 L 157/65 H Pulse Oximetry 98 97 12/14/18 15:00 Temperature Pulse Rate 66 Respiratory Rate 16 Blood Pressure Blood Pressure [Left Arm] 150/61 H Pulse Oximetry 98 MDM - Fever Lab Data Result diagrams: 12/14/18 12:10 12/14/18 12:10 Lab Results 12/14/18 12/14/18 12/14/18 Range/Units 12:10 12:10 12:10 WBC 301.9 H* (4.5-11.0) X10^3/uL RBC 3.40 L (4.5-5.9) X10^6/uL Hgb 10.9 L (13.5-17.5) g/dL Hct 33.1 L (41-53) % MCV 97.4 (80-100) fL MCH 32.0 (26-34) PG MCHC 32.9 (30-36) % RDW 16.7 H (11.6-14.8) % Plt Count 89 L (150-400) X10^3/uL Neut % (Auto) Not Reportable Lymph % (Auto) Not Reportable Hernando % (Auto) Not Reportable Eos % (Auto) Not Reportable Baso % (Auto) Not Reportable Lymph # (Auto) Not Reportable Hernando # (Auto) Not Reportable Baso # (Auto) Not Reportable Total Counted 100 Seg Neutrophils % 4.0 L (38-70) % Lymphocytes % (Manual) 9.0 L (25-45) % Atypical Lymphs % 87.0 H ( - 0) % Neutrophils # (Manual) 04193 H (6561-1509) /uL RBC Morphology See below Anisocytosis 1+ H Macrocytosis 1+ H PT 14.8 H (10.1-12.7) SECONDS INR 1.3 (0.9-1.3) APTT 31 (26.4-36.2) SECONDS Sodium (137-145) mmol/L Potassium (3.4-5.1) mmol/L Chloride (98-107) mmol/L Carbon Dioxide (22-32) mmol/L BUN (9-20) mg/dL Creatinine (0.66-1.25) mg/dL Estimated GFR (>60) mL/min BUN/Creatinine Ratio (6-22) Glucose (80-110) mg/dL Lactate (0.7-2.1) mmol/L Calcium (8.4-10.2) mg/dL Total Bilirubin (0.2-1.3) mg/dL AST (17-59) IU/L ALT (21-72) IU/L Alkaline Phosphatase (38-126) U/L Total Protein (6.3-8.2) g/dL Albumin (3.5-5.0) g/dL Globulin (1.7-4.1) g/dL Albumin/Globulin Ratio (1.0-2.8) Lipase (23-300) U/L Procalcitonin 5.62 H (<0.5) ng/mL Urine Color Urine Appearance Urine pH (4.5-8.0) Ur Specific Bells (1.000-1.035) Urine Protein (Negative) Urine Glucose (UA) (Negative) g/dL Urine Ketones (NEGATIVE) Urine Occult Blood (Negative) Urine Nitrate (Negative) Urine Bilirubin (NEGATIVE) Urine Ictotest (Negative) Urine Urobilinogen (0.2) E.U./dL Ur Leukocyte Esterase (NEGATIVE) Urine RBC (0-5/HPF) Urine WBC (0-5/HPF) Ur Squamous Epith Cells Amorphous Sediment Urine Bacteria (None) Ur Culture Indicated? Influenza A & B (PCR) (Negative) 12/14/18 12/14/18 12/14/18 Range/Units 12:10 12:25 12:38 WBC (4.5-11.0) X10^3/uL RBC (4.5-5.9) X10^6/uL Hgb (13.5-17.5) g/dL Hct (41-53) % MCV (80-100) fL MCH (26-34) PG MCHC (30-36) % RDW (11.6-14.8) % Plt Count (150-400) X10^3/uL Neut % (Auto) Lymph % (Auto) Hernando % (Auto) Eos % (Auto) Baso % (Auto) Lymph # (Auto) Hernando # (Auto) Baso # (Auto) Total Counted Seg Neutrophils % (38-70) % Lymphocytes % (Manual) (25-45) % Atypical Lymphs % ( - 0) % Neutrophils # (Manual) (4557-2260) /uL RBC Morphology Anisocytosis Macrocytosis PT (10.1-12.7) SECONDS INR (0.9-1.3) APTT (26.4-36.2) SECONDS Sodium 134 L (137-145) mmol/L Potassium 4.7 (3.4-5.1) mmol/L Chloride 96 L (98-107) mmol/L Carbon Dioxide 26 (22-32) mmol/L BUN 24 H (9-20) mg/dL Creatinine 1.20 (0.66-1.25) mg/dL Estimated GFR > 60.0 (>60) mL/min BUN/Creatinine Ratio 20.0 (6-22) Glucose 132 H (80-110) mg/dL Lactate 1.1 (0.7-2.1) mmol/L Calcium 8.9 (8.4-10.2) mg/dL Total Bilirubin 1.5 H (0.2-1.3) mg/dL AST 166 H (17-59) IU/L ALT 399 H (21-72) IU/L Alkaline Phosphatase 134 H (38-126) U/L Total Protein 7.2 (6.3-8.2) g/dL Albumin 4.5 (3.5-5.0) g/dL Globulin 2.7 (1.7-4.1) g/dL Albumin/Globulin Ratio 1.7 (1.0-2.8) Lipase 32 (23-300) U/L Procalcitonin (<0.5) ng/mL Urine Color Red Urine Appearance Cloudy Urine pH 5.5 (4.5-8.0) Ur Specific Bells 1.025 (1.000-1.035) Urine Protein 2+ H (Negative) Urine Glucose (UA) Negative (Negative) g/dL Urine Ketones Negative (NEGATIVE) Urine Occult Blood 3+ H (Negative) Urine Nitrate Negative (Negative) Urine Bilirubin 1+ H (NEGATIVE) Urine Ictotest Negative (Negative) Urine Urobilinogen 0.2 (0.2) E.U./dL Ur Leukocyte Esterase Trace H (NEGATIVE) Urine RBC >100/hpf (0-5/HPF) Urine WBC 5-10/hpf H (0-5/HPF) Ur Squamous Epith Cells 0-1 /hpf Amorphous Sediment 1+ Urine Bacteria Few (2-10) H (None) Ur Culture Indicated? Specimen cultured Influenza A & B (PCR) (Negative) 12/14/18 Range/Units 14:30 WBC (4.5-11.0) X10^3/uL RBC (4.5-5.9) X10^6/uL Hgb (13.5-17.5) g/dL Hct (41-53) % MCV (80-100) fL MCH (26-34) PG MCHC (30-36) % RDW (11.6-14.8) % Plt Count (150-400) X10^3/uL Neut % (Auto) Lymph % (Auto) Hernando % (Auto) Eos % (Auto) Baso % (Auto) Lymph # (Auto) Hernando # (Auto) Baso # (Auto) Total Counted Seg Neutrophils % (38-70) % Lymphocytes % (Manual) (25-45) % Atypical Lymphs % ( - 0) % Neutrophils # (Manual) (5755-1588) /uL RBC Morphology Anisocytosis Macrocytosis PT (10.1-12.7) SECONDS INR (0.9-1.3) APTT (26.4-36.2) SECONDS Sodium (137-145) mmol/L Potassium (3.4-5.1) mmol/L Chloride (98-107) mmol/L Carbon Dioxide (22-32) mmol/L BUN (9-20) mg/dL Creatinine (0.66-1.25) mg/dL Estimated GFR (>60) mL/min BUN/Creatinine Ratio (6-22) Glucose (80-110) mg/dL Lactate (0.7-2.1) mmol/L Calcium (8.4-10.2) mg/dL Total Bilirubin (0.2-1.3) mg/dL AST (17-59) IU/L ALT (21-72) IU/L Alkaline Phosphatase (38-126) U/L Total Protein (6.3-8.2) g/dL Albumin (3.5-5.0) g/dL Globulin (1.7-4.1) g/dL Albumin/Globulin Ratio (1.0-2.8) Lipase (23-300) U/L Procalcitonin (<0.5) ng/mL Urine Color Urine Appearance Urine pH (4.5-8.0) Ur Specific Bells (1.000-1.035) Urine Protein (Negative) Urine Glucose (UA) (Negative) g/dL Urine Ketones (NEGATIVE) Urine Occult Blood (Negative) Urine Nitrate (Negative) Urine Bilirubin (NEGATIVE) Urine Ictotest (Negative) Urine Urobilinogen (0.2) E.U./dL Ur Leukocyte Esterase (NEGATIVE) Urine RBC (0-5/HPF) Urine WBC (0-5/HPF) Ur Squamous Epith Cells Amorphous Sediment Urine Bacteria (None) Ur Culture Indicated? Influenza A & B (PCR) Negative (Negative) Discharge Plan Departure Patient Disposition: Home Clinical Impression: Acute UTI, Acute urinary retention Discharge Date/Time: 12/14/18 16:01 Interventions: ED Discharge Assessment Last Done: 12/14/18 15:51 Instructions: DI for Urinary Tract Infection (UTI) Activity Restrictions/Additional Instructions: *You have been diagnosed with [ acute UTI, urinary retention ] *What to do: *Take medications as directed *Follow up with [facility], call for an appointment. Let them know you were seen in the Emergency Department and that we ask that you be seen in follow up *Additional option for follow up is the [facility] at please contact Dr. Gonzalez's nurse at [phone] for any issues or problems or you can call the front counter clerk for routine follow up appointment at [phone] *Return to ER if you should have any new, worsening or concerning symptoms Prescriptions: New cephalexin [Keflex] 500 mg capsule 500 mg PO QID 7 Days Qty: 28 RF: 0 tamsulosin [Flomax] 0.4 mg capsule 0.4 mg PO DAILY Qty: 10 RF: 0 No Action lisinopril 20 mg tablet 20 mg PO QPM RF: 0 amlodipine 5 mg tablet 5 mg PO QPM RF: 0 diphenhydramine HCl 50 mg capsule 50 mg PO BEDTIME RF: 0 atorvastatin 40 mg tablet 40 mg PO BEDTIME Qty: 30 RF: 5 aspirin 81 mg tablet,delayed release (DR/EC) 81 mg PO DAILY RF: 0 metoprolol succinate 50 mg tablet extended release 24 hr 75 mg PO BID RF: 0 allopurinol 300 mg tablet 300 mg PO DAILY RF: 0 ibrutinib [Imbruvica] 140 mg capsule 240 mg PO BID RF: 0 acalabrutinib [Calquence] 100 mg capsule 100 mg PO BID RF: 0 famotidine 1 tab PO DAILY RF: 0 Referrals: Michel Bran MD [Primary Care Provider] - Hay Pope MD [Non-Staff] -
[2018-12-14 14:50] LABS: Influenza A and B by PCR Rapid Negative (Negative)
[2018-12-14 15:00] VITALS: BP 150/61; PULSE 66; RESP 16; O2SAT 98
--- NOTE | 2018-12-14 15:59 | PC.NURSE ---
leg bag instructions given/ will follow up
== END 2018-12-14 16:01 | disposition home or self-care (01) ==
PROVIDERS: Emergency Provider Emergency Medicine; Family Provider Student in an Organized Health Care Education/Training Program; PCP Student in an Organized Health Care Education/Training Program
DX: N39.0 Urinary tract infection, site not specified (principal); R33.8 Other retention of urine
CPT/HCPCS: 36415; 36591; 51798; 71045; 80053; 81001; 81015; 83605; 83690; 84145; 85025; 85610; 85730; 87040; 87086; 87205; 87400; 96361; 96365; 99284; 99285

== ENCOUNTER 2018-12-15 12:00 | Emergency (ER) | payer MEDICARE, OTHER, SELFPAY ==
[2018-12-15 12:07] VITALS: BP 102/68; PULSE 67; RESP 20; TEMP 36.4; O2SAT 100; BMI 31.1
--- NOTE | 2018-12-15 13:23 | PC.NURSE ---
patient had bourgeois placed yesterday, woke this morning with fair amount in bag. Has been drinking lots of fluids with minimal output in bourgeois bag. Reports blood in urine in bag with leaking around tube. Patient reports sensation of retention.
--- NOTE | 2018-12-15 13:25 | ED.MALEGU ---
HPI - Male Genitourinary <Corrie Johnson PA-C - Last Filed: 12/15/18 19:38> General Chief complaint: Urogenital-Male Stated complaint: CATHETER PLUGGED Time Seen by Provider: 12/15/18 13:25 Source: patient Mode of arrival: ambulatory Limitations: no limitations History of Present Illness HPI Narrative: This 63-year-old male returns after he was seen here for acute urinary retention yesterday. Catheter was placed. He states that he woke up feeling quite well this morning however subsequently has noted that the catheter is not draining. He has pressure sensation and states he has had some leakage around the catheter. He states that he is feeling otherwise well today. He had some side effects from a new chemotherapy drug for his CLL a few days ago but that has been discontinued. He denies any abdominal pain, nausea or vomiting. He has not had fever last night or today. He has a history of chronic intermittent hematuria where he passes blood clots. He has had this for many years and states he had normal workup including cystoscopy at that time. He does have Urology appointment set up tomorrow. Related Data Home Medications Medication Instructions Recorded Confirmed amlodipine 5 mg tablet 5 mg PO QPM 10/05/18 12/14/18 diphenhydramine 50 mg capsule 50 mg PO BEDTIME 10/05/18 12/14/18 lisinopril 20 mg tablet 20 mg PO QPM 10/05/18 12/14/18 aspirin 81 mg tablet,delayed 81 mg PO DAILY 10/06/18 12/14/18 release acalabrutinib [Calquence] 100 mg PO BID 12/14/18 12/14/18 allopurinol 300 mg PO DAILY 12/14/18 12/14/18 famotidine 1 tab PO DAILY 12/14/18 12/14/18 ibrutinib [Imbruvica] 240 mg PO BID 12/14/18 12/14/18 metoprolol succinate 75 mg PO BID 12/14/18 12/14/18 Previous Rx's Medication Instructions Recorded atorvastatin 40 mg tablet 40 mg PO BEDTIME #30 tab 10/06/18 cephalexin [Keflex] 500 mg PO QID 7 Days #28 cap 12/14/18 tamsulosin [Flomax] 0.4 mg PO DAILY #10 cap 12/14/18 Allergies Allergy/AdvReac Type Severity Reaction Status Date / Time OFATUMUMAB Allergy Unknown pronounced Uncoded 12/14/18 11:48 vaso dilation Review of Systems <Corrie Johnson PA-C - Last Filed: 12/15/18 19:38> Review of Systems ROS Unobtainable: All systems reviewed & are unremarkable except as noted in HPI and below PFSH <Corrie Johnson PA-C - Last Filed: 12/15/18 19:38> Medical History Hypertension (Acute) Leukemia (Acute) BPH (benign prostatic hyperplasia) (Chronic) Cardiomyopathy (Chronic) History of gross hematuria (Chronic) Surgical History History of allogeneic stem cell transplant (Acute) No pertinent past surgical history (Chronic) S/P TURP (Resolved) Family History Other No pertinent family history Social History Smoking Status: Former smoker Social History Smoking Status: Former smoker Exam <Corrie Johnson PA-C - Last Filed: 12/15/18 19:38> Narrative Exam Narrative: GENERAL APPEARANCE: Patient sitting comfortably, in no distress. LUNGS: Clear to auscultation bilaterally. HEART: Rate and rhythm regular without murmur, normal S1 and S2, no S3 or S4. ABDOMEN: Soft, NT, ND, +BS x 4 quadrants, no CVAT. EXTREMITIES: No edema or cyanosis NEUROLOGIC: Patient is alert and oriented with normal speech and coordination Initial Vital Signs Initial Vital Signs: Vital Signs Temperature 97.6 F 12/15/18 12:07 Pulse Rate 67 12/15/18 12:07 Respiratory Rate 20 12/15/18 12:07 Blood Pressure 102/68 12/15/18 12:07 Pulse Oximetry 100 12/15/18 12:07 <Yolanda Arguello DO - Last Filed: 12/17/18 07:21> Initial Vital Signs Initial Vital Signs: Vital Signs Temperature 97.6 F 12/15/18 12:07 Pulse Rate 67 12/15/18 12:07 Respiratory Rate 20 12/15/18 12:07 Blood Pressure 102/68 12/15/18 12:07 Pulse Oximetry 100 12/15/18 12:07 Course <Corrie Johnson PA-C - Last Filed: 12/15/18 19:38> Additional Information: The patient was noted to have a lot of leakage around the catheter and this was removed. He was able to void a full amount with little postvoid residual. He feels better. He did have 1 clot initially. He does have a history of BPH and TURP. Will monitor at home and return if any recurrent symptoms. No growth on initial culture. Advised to continue antibiotic and Flomax and see Urology as scheduled tomorrow. Vital Signs - 8 hr 12/15/18 12:07 12/15/18 14:33 Temperature 97.6 F Pulse Rate 67 55 L Respiratory Rate 20 16 Blood Pressure 102/68 137/79 Pulse Oximetry 100 100 <Yolanda Arguello DO - Last Filed: 12/17/18 07:21> Vital Signs - 8 hr 12/15/18 12:07 12/15/18 14:33 Temperature 97.6 F Pulse Rate 67 55 L Respiratory Rate 20 16 Blood Pressure 102/68 137/79 Pulse Oximetry 100 100 Discharge Plan Departure Patient Disposition: Home Clinical Impression: Acute urinary retention Discharge Date/Time: 12/15/18 14:34 Interventions: ED Discharge Assessment Last Done: 12/15/18 14:33 Activity Restrictions/Additional Instructions: Please return if you are not able to urinate or have worsening symptoms again. Please continue the antibiotic as well as the Flomax for now, and follow up with Urology as planned tomorrow. Prescriptions: No Action lisinopril 20 mg tablet 20 mg PO QPM RF: 0 amlodipine 5 mg tablet 5 mg PO QPM RF: 0 diphenhydramine HCl 50 mg capsule 50 mg PO BEDTIME RF: 0 atorvastatin 40 mg tablet 40 mg PO BEDTIME Qty: 30 RF: 5 aspirin 81 mg tablet,delayed release (DR/EC) 81 mg PO DAILY RF: 0 metoprolol succinate 50 mg tablet extended release 24 hr 75 mg PO BID RF: 0 allopurinol 300 mg tablet 300 mg PO DAILY RF: 0 ibrutinib [Imbruvica] 140 mg capsule 240 mg PO BID RF: 0 acalabrutinib [Calquence] 100 mg capsule 100 mg PO BID RF: 0 famotidine 1 tab PO DAILY RF: 0 cephalexin [Keflex] 500 mg capsule 500 mg PO QID 7 Days Qty: 28 RF: 0 tamsulosin [Flomax] 0.4 mg capsule 0.4 mg PO DAILY Qty: 10 RF: 0 Referrals: Michel Bran MD [Primary Care Provider] - Hay Pope MD [Non-Staff] - <Yolanda Arguello DO - Last Filed: 12/17/18 07:21> Cosign ED Attending Cosignature Attestation: I was immediately available in the department for consultation. This documentation has been reviewed and I agree with assessment and plan. Supervised by Yolanda Arguello DO
[2018-12-15 14:33] VITALS: BP 137/79; PULSE 55; RESP 16; O2SAT 100
== END 2018-12-15 14:34 | disposition home or self-care (01) ==
PROVIDERS: Emergency Provider Internal Medicine; PCP Student in an Organized Health Care Education/Training Program
DX: R33.9 Retention of urine, unspecified (principal)
CPT/HCPCS: 51798; 99283

== ENCOUNTER → 2019-03-10 15:22 | Outpatient (CLI) | payer MEDICARE, OTHER, SELFPAY ==
[2019-03-17 13:57] LABS: Clostridium Difficile Tox PCR Negative for C.diff
== END ==
PROVIDERS: PCP Student in an Organized Health Care Education/Training Program; Visit Provider Student in an Organized Health Care Education/Training Program
DX: R19.7 Diarrhea, unspecified (principal)
CPT/HCPCS: 87045; 87147; 87205; 87493; 87899

== ENCOUNTER → 2019-03-11 08:51 | Outpatient (CLI) | payer MEDICARE, OTHER, SELFPAY | PROVIDERS: PCP Student in an Organized Health Care Education/Training Program; Visit Provider Student in an Organized Health Care Education/Training Program | DX: R19.7 Diarrhea, unspecified (principal) | CPT/HCPCS: 84376 ==

== ENCOUNTER → 2019-03-15 14:12 | Outpatient (CLI) | payer MEDICARE, OTHER, SELFPAY ==
[2019-03-15 16:33] LABS: Prostate Specific Antigen Scrn 0.594 ng/mL (0.1-4.0)
== END ==
PROVIDERS: PCP Student in an Organized Health Care Education/Training Program; Visit Provider Student in an Organized Health Care Education/Training Program
DX: Z12.5 Encounter for screening for malignant neoplasm of prostate (principal)
CPT/HCPCS: 36415; G0103

== ENCOUNTER → 2019-07-08 09:22 | Outpatient (CLI) | payer MEDICARE, OTHER, SELFPAY ==
[2019-07-08 10:36] LABS: Add Manual Diff / Slide Review YES; Hematocrit 29.6 % (41-53); Hemoglobin 9.9 g/dL (13.5-17.5); Mean Corpuscular HGB Conc 33.6 % (30-36); Mean Corpuscular Hemoglobin 32.8 PG (26-34); Mean Corpuscular Volume 97.7 fL (80-100); Platelet Count 51 X10^3/uL (150-400); Red Blood Cell Count 3.03 X10^6/uL (4.5-5.9); Red Cell Distribution Width 17.7 % (11.6-14.8); White Blood Cell Count 12.5 X10^3/uL (4.5-11.0)
[2019-07-08 10:50] LABS: BUN Creatinine Ratio 16.7 (6-22); Blood Urea Nitrogen 20 mg/dL (9-20); Calcium 8.6 mg/dL (8.4-10.2); Carbon Dioxide 29 mmol/L (22-32); Chloride 102 mmol/L (98-107); Estimated Glomerular Filt Rate > 60.0 mL/min (>60); Glucose 111 mg/dL (80-110); HEMOLYSIS < 15 (0-50); Phosphorous 4.3 mg/dL (2.3-3.7); Potassium 4.6 mmol/L (3.4-5.1); Sodium 140 mmol/L (137-145); Uric Acid 5.8 mg/dL (3.5-8.5)
[2019-07-08 11:04] LABS: Neutrophils Absolute Manual 1750 /uL (3000-5900); RBC Morphology Normal Morphology; Smudge Cells 1+; Total Cells Counted 100
== END ==
PROVIDERS: PCP Student in an Organized Health Care Education/Training Program; Visit Provider Nurse Practitioner Adult Health
DX: C91.12 Chronic lymphocytic leukemia of B-cell type in relapse (principal)
CPT/HCPCS: 36415; 80048; 84100; 84550; 85025

== ENCOUNTER 2019-08-19 22:48 | Emergency (ER) | payer MEDICARE, OTHER, SELFPAY ==
[2019-08-19 23:04] VITALS: BP 151/56; PULSE 96; RESP 18; TEMP 38.1; O2SAT 96
--- NOTE | 2019-08-19 23:14 | DI.RAD.S_ITS ---
PROCEDURE: XR CHEST 1V INDICATIONS: suspected sepsis TECHNIQUE: One view of the chest was acquired. COMPARISON: [facility], , CHEST 2 VIEW, 01/05/2015, 15:16. [facility], CR, XR CHEST 1V, 07/03/2018, 11:18. [facility], CR, XR CHEST 1V, 12/14/2018, 11:58. FINDINGS: Surgical changes and devices: None. Lungs and pleura: An incomplete inspiratory result is noted, causing a crowded appearance to the lung markings. No focal infiltrates are seen. No pneumothorax or significant pleural effusions are seen. Mediastinum: Mediastinal contours appear normal. Heart size is normal. Bones and chest wall: No suspicious bony lesions. Age-appropriate bony degenerative changes are seen. Overlying soft tissues appear unremarkable. IMPRESSION: No focal infiltrates are seen. Dictated by: Basim Lopez M.D. on 08/20/2019 at 9:18 Approved by: Basim Lopez M.D. on 08/20/2019 at 9:19
[2019-08-19 23:42] VITALS: BP 115/72; PULSE 93; RESP 18; O2SAT 93
[2019-08-19 23:43] LABS: Hematocrit 34.9 % (41-53); Mean Corpuscular HGB Conc 34.3 % (30-36); Mean Corpuscular Hemoglobin 32.5 PG (26-34); Mean Corpuscular Volume 94.6 fL (80-100); Platelet Count 94 X10^3/uL (150-400); Red Blood Cell Count 3.69 X10^6/uL (4.5-5.9); Red Cell Distribution Width 16.7 % (11.6-14.8); White Blood Cell Count 6.2 X10^3/uL (4.5-11.0)
[2019-08-19 23:44] LABS: Add Manual Diff / Slide Review YES; INR 1.1 (0.9-1.3); Prothrombin Time 13.2 SECONDS (10.1-12.7)
[2019-08-19 23:46] LABS: PTT Partial Thromboplastin Tim 29 SECONDS (26.4-36.2)
[2019-08-19 23:54] LABS: Alanine Aminotransferase 19 IU/L (21-72); Albumin 4.4 g/dL (3.5-5.0); Albumin Globulin Ratio 2.1 (1.0-2.8); Alkaline Phosphatase 61 U/L (38-126); Aspartate Aminotransferase 20 IU/L (17-59); BUN Creatinine Ratio 18.2 (6-22); Bilirubin Total 0.9 mg/dL (0.2-1.3); Blood Urea Nitrogen 20 mg/dL (9-20); Calcium 8.9 mg/dL (8.4-10.2); Carbon Dioxide 29 mmol/L (22-32); Chloride 100 mmol/L (98-107); Estimated Glomerular Filt Rate > 60.0 mL/min (>60); Globulin 2.1 g/dL (1.7-4.1); Glucose 158 mg/dL (80-110); HEMOLYSIS < 15 (0-50); Lipase 35 U/L (23-300); Sodium 138 mmol/L (137-145); Total Protein 6.5 g/dL (6.3-8.2)
[2019-08-20 00:12] LABS: Procalcitonin 0.07 ng/mL (<0.5)
[2019-08-20] MEDS: SODIUM CHLORIDE 0.9% 1,000 ML 1000 ML IV (00:28)
[2019-08-20] MEDS: ONDANSETRON 4 MG/2 ML INJ IV (00:29)
[2019-08-20] MEDS: ACETAMINOPHEN 325 MG TABLET 975 MG PO (00:29)
[2019-08-20 00:40] VITALS: BP 137/65; PULSE 85; RESP 28; O2SAT 93
--- NOTE | 2019-08-20 01:23 | ED_ITS ---
HPI - Fever General Chief Complaint: Fever Stated Complaint: FEVER 102 LUKEMIA PATIENT Time Seen by Provider: 08/20/19 01:21 Source: patient Mode of arrival: Wheelchair Limitations: no limitations History of Present Illness HPI Narrative: 64-year-old male comes to the emergency department with complaint of fever. Patient states that he had a fever that developed today. He has had a little bit of a cough which has been clear/yellow in coloration. Denies any chest pain or shortness of breath. Vomited once today. No issues with bowel movements, no issues with urine changes. No abdominal pain. No rash or skin changes. He denies any nasal congestion or sinus pressure. No headache. Patient has not had any other symptoms. He has CLL, he is on medication and his numbers have been improving but they were concerned he might be neutropenic. Related Data Home Medications Medication Instructions Recorded Confirmed amlodipine 5 mg tablet 5 mg PO QPM 10/05/18 03/25/19 diphenhydramine HCl 50 mg capsule 50 mg PO BEDTIME 10/05/18 03/25/19 lisinopril 20 mg tablet 20 mg PO QPM 10/05/18 03/25/19 aspirin 81 mg tablet,delayed 81 mg PO DAILY 10/06/18 03/25/19 release famotidine 1 tab PO DAILY 12/14/18 03/25/19 metoprolol succinate 75 mg PO BID 12/14/18 03/25/19 Previous Rx's Medication Instructions Recorded atorvastatin 40 mg tablet 40 mg PO BEDTIME #30 tab 10/06/18 tamsulosin [Flomax] 0.4 mg PO DAILY #10 cap 12/14/18 diphenoxylate-atropine 2.5 1 tab PO Q6H PRN #60 tab 03/25/19 mg-0.025 mg tablet Allergies Allergy/AdvReac Type Severity Reaction Status Date / Time OFATUMUMAB Allergy Unknown pronounced Uncoded 03/10/19 15:11 vaso dilation Review of Systems Review of Systems ROS Unobtainable: All systems reviewed & are unremarkable except as noted in HPI and below Patient History Medical/Surgical History Medical History BPH (benign prostatic hyperplasia) (Chronic) Cardiomyopathy (Chronic) History of gross hematuria (Chronic) Hypertension (Acute) Leukemia (Acute) Surgical History History of allogeneic stem cell transplant (Acute) No pertinent past surgical history (Chronic) S/P TURP (Resolved) Family History (Updated 12/15/18 @ 13:46 by Corrie Johnson PA-C) Other No pertinent family history Social History Smoking Status: Former smoker Family/Social History Social History Smoking Status: Former smoker alcohol intake frequency: 0-2 drinks per day Substance Use Type: does not use Exam Narrative Exam Narrative: GEN: well nourished, well appearing male, alert and oriented x 3, patient appears to be in no acute distress. HEENT: Atraumatic, pupils are equal round reactive to light, extraocular movements are intact, nares are clear, Throat is clear without any exudates, erythema, tonsillar enlargement or uvular deviation. No nuchal rigidity, no meningeal signs HEART: Regular rate and rhythm without murmur, clicks, rubs. Pulses are equal in upper and lower extremities LUNGS:Lungs clear to auscultation, no wheezes, rales, crackles, chest moves symmetrically ABD:bowel sounds normal, soft, non-tender, no guarding, rebound, rigidity, no masses noted, no hepatosplenomegaly :No CVA tenderness. MSCL: Non-tender, no muscle atrophy, muscles strength 5/5 upper and lower extremities, full range of motion, normal gait NEURO:CN 2-12 intact, sensation normal SKIN: No rash, no petechiae or other signs. Initial Vital Signs Initial Vital Signs: Vital Signs Temperature 100.6 F H 08/19/19 23:04 Pulse Rate 96 H 08/19/19 23:04 Respiratory Rate 18 08/19/19 23:04 Blood Pressure 151/56 H 08/19/19 23:04 Pulse Oximetry 96 08/19/19 23:04 Course Orders Ordered: ED Orders 08/19/19 23:14 XR chest 1V Stat EKG-12 Lead Stat RT Consult Eval and Treat Now 08/19/19 23:23 Complete Blood Count AUTO DIFF Stat Comprehensive Metabolic Panel Stat Lactate (Lactic Acid) Stat Lipase Stat Partial Thromboplastin Time Stat Procalcitonin Stat Prothrombin Time INR Stat 08/19/19 23:50 Blood Culture Stat 08/20/19 02:00 Influenza A and B by PCR Rapid Stat Discontinued Medications Acetaminophen (Tylenol) 975 mg PO NOW ONE Stop: 08/20/19 00:01 Last Admin: 08/20/19 00:29 Dose: 975 mg Documented by: SAMANTHA Sodium Chloride (Normal Saline 0.9%) 1,000 mls @ 1,000 mls/hr IV BOLUS ONE Stop: 08/20/19 00:13 Last Infusion: 08/20/19 01:56 Dose: 0 mls/hr Documented by: Admin: 08/20/19 00:28 Dose: 1,000 mls/hr Documented by: SAMANTHA Ondansetron HCl (Zofran) 4 mg IV NOW ONE Stop: 08/20/19 00:00 Last Admin: 08/20/19 00:29 Dose: 4 mg Documented by: SAMANTHA Vital Signs Vital signs: Vital Signs - 8 hr 08/20/19 00:40 08/20/19 01:32 08/20/19 02:02 Temperature 98.9 F Pulse Rate 85 85 80 Respiratory Rate 28 H 22 16 Blood Pressure [Left Arm] 137/65 149/63 H 128/61 Pulse Oximetry 93 95 94 08/20/19 02:30 08/20/19 03:16 Temperature 99 F Pulse Rate 76 Respiratory Rate 23 Blood Pressure [Left Arm] 123/63 Pulse Oximetry 94 MDM - Fever Lab Data Attestation: I reviewed the patient's lab results. Result diagrams: 08/19/19 23:23 08/19/19 23:23 Labs: Lab Results 08/19/19 08/19/19 08/19/19 Range/Units 23:23 23:23 23:23 WBC 6.2 (4.5-11.0) X10^3/uL RBC 3.69 L (4.5-5.9) X10^6/uL Hgb 12.0 L (13.5-17.5) g/dL Hct 34.9 L (41-53) % MCV 94.6 (80-100) fL MCH 32.5 (26-34) PG MCHC 34.3 (30-36) % RDW 16.7 H (11.6-14.8) % Plt Count 94 L (150-400) X10^3/uL Neut % (Auto) Not Reportable Lymph % (Auto) Not Reportable [place] % (Auto) Not Reportable Eos % (Auto) Not Reportable Baso % (Auto) Not Reportable Lymph # (Auto) Not Reportable [place] # (Auto) Not Reportable Baso # (Auto) Not Reportable Total Counted 100 Seg Neutrophils % 50.0 (38-70) % Band Neutrophils % 15.0 H (3-7) % Lymphocytes % (Manual) 14.0 L (25-45) % Atypical Lymphs % 9.0 H ( - 0) % Monocytes % (Manual) 12.0 H (2-11) % Neutrophils # (Manual) 4030 (9040-3262) /uL Platelet Estimate Decreased on smear RBC Morphology See below Anisocytosis 1+ H PT 13.2 H (10.1-12.7) SECONDS INR 1.1 (0.9-1.3) APTT 29 D (26.4-36.2) SECONDS Sodium (137-145) mmol/L Potassium (3.4-5.1) mmol/L Chloride (98-107) mmol/L Carbon Dioxide (22-32) mmol/L BUN (9-20) mg/dL Creatinine (0.66-1.25) mg/dL Estimated GFR (>60) mL/min BUN/Creatinine Ratio (6-22) Glucose (80-110) mg/dL Lactate (0.7-2.1) mmol/L Calcium (8.4-10.2) mg/dL Total Bilirubin (0.2-1.3) mg/dL AST (17-59) IU/L ALT (21-72) IU/L Alkaline Phosphatase (38-126) U/L Total Protein (6.3-8.2) g/dL Albumin (3.5-5.0) g/dL Globulin (1.7-4.1) g/dL Albumin/Globulin Ratio (1.0-2.8) Lipase (23-300) U/L Procalcitonin 0.07 (<0.5) ng/mL Influenza A & B (PCR) (Negative) 08/19/19 08/19/19 08/20/19 Range/Units 23:23 23:23 02:00 WBC (4.5-11.0) X10^3/uL RBC (4.5-5.9) X10^6/uL Hgb (13.5-17.5) g/dL Hct (41-53) % MCV (80-100) fL MCH (26-34) PG MCHC (30-36) % RDW (11.6-14.8) % Plt Count (150-400) X10^3/uL Neut % (Auto) Lymph % (Auto) [place] % (Auto) Eos % (Auto) Baso % (Auto) Lymph # (Auto) [place] # (Auto) Baso # (Auto) Total Counted Seg Neutrophils % (38-70) % Band Neutrophils % (3-7) % Lymphocytes % (Manual) (25-45) % Atypical Lymphs % ( - 0) % Monocytes % (Manual) (2-11) % Neutrophils # (Manual) (9775-8449) /uL Platelet Estimate RBC Morphology Anisocytosis PT (10.1-12.7) SECONDS INR (0.9-1.3) APTT (26.4-36.2) SECONDS Sodium 138 (137-145) mmol/L Potassium 4.0 (3.4-5.1) mmol/L Chloride 100 (98-107) mmol/L Carbon Dioxide 29 (22-32) mmol/L BUN 20 (9-20) mg/dL Creatinine 1.10 (0.66-1.25) mg/dL Estimated GFR > 60.0 (>60) mL/min BUN/Creatinine Ratio 18.2 (6-22) Glucose 158 H (80-110) mg/dL Lactate 1.0 (0.7-2.1) mmol/L Calcium 8.9 (8.4-10.2) mg/dL Total Bilirubin 0.9 (0.2-1.3) mg/dL AST 20 (17-59) IU/L ALT 19 L (21-72) IU/L Alkaline Phosphatase 61 (38-126) U/L Total Protein 6.5 (6.3-8.2) g/dL Albumin 4.4 (3.5-5.0) g/dL Globulin 2.1 (1.7-4.1) g/dL Albumin/Globulin Ratio 2.1 (1.0-2.8) Lipase 35 (23-300) U/L Procalcitonin (<0.5) ng/mL Influenza A & B (PCR) Negative (Negative) Urine Dip Bedside Urine Glucose Negative Bedside Urine Bilirubin - Negative Bedside Urine Ketone - Negative Urine Specific [place] 1.015 Bedside Urine Occult Blood ++ Bedside Urine pH 6.0 Bedside Urine Protein +/- 15 Bedside Urine Urobilinogen - Negative Bedside Urine Nitrite - Negative Bedside Urine Leukocytes - Negative Esterase Imaging Data Chest x-ray: Radiologist's impression: X-ray shows no focal consolidation, pneumothorax, mediastinum or other acute changes ECG Data Attestation: I personally reviewed and interpreted this ECG as follows: Interpretation: Left bundle branch block, rate 89 P are 187 QRS 8170 QTC of 456. Patient has EKG from April 02, 2018 which appears similar with left bundle branch block. [facility] Narrative Medical decision making narrative: Patient has a fever but is not neutropenic. Labs show his white count has decreased but is 6.2. No focal infection is found. He has had a little bit of a cough. Influenza swab is pending. Discussed with his oncology team. Dr. Carter, feels the patient does not any focal bacterial source that we can appreciate she would not start antibiotics. She would say that patient should call Thursday morning. Patient discussed return at any time for blood cultures are pending. He had a mild cough and may have upper respiratory infection. Discharge Plan Departure Patient Disposition: Home Clinical Impression: Fever Discharge Date/Time: 08/20/19 03:17 Activity Restrictions/Additional Instructions: Follow-up with the oncology team this week. Call for an appointment time and any further recommendations. Blood cultures are pending, these take 24-48 hours to result. Continue home medications as prescribed. You may take ibuprofen and/or Tylenol as needed for fever. Return to the emergency department for persistent fevers that do not respond, altered mental status severe headaches, new chest pain, shortness of breath, persistent vomiting, abdominal pain, black or bloody stools, new rashes or skin changes or other new or concerning symptoms. Prescriptions: No Action lisinopril 20 mg tablet 20 mg PO QPM RF: 0 amlodipine 5 mg tablet 5 mg PO QPM RF: 0 diphenhydramine HCl 50 mg capsule 50 mg PO BEDTIME RF: 0 atorvastatin 40 mg tablet 40 mg PO BEDTIME Qty: 30 RF: 5 aspirin 81 mg tablet,delayed release (DR/EC) 81 mg PO DAILY RF: 0 diphenoxylate-atropine 2.5-0.025 mg tablet 1 tab PO Q6H PRN (Reason: diarrhea) Qty: 60 RF: 0 metoprolol succinate 50 mg tablet extended release 24 hr 75 mg PO BID RF: 0 famotidine 1 tab PO DAILY RF: 0 tamsulosin [Flomax] 0.4 mg capsule 0.4 mg PO DAILY Qty: 10 RF: 0 Referrals: Michel Bran MD [Primary Care Provider] -
[2019-08-20 01:32] VITALS: BP 149/63; PULSE 85; RESP 22; O2SAT 95
[2019-08-20 01:52] LABS: Neutrophils Absolute Manual 4030 /uL (3000-5900); Total Cells Counted 100
[2019-08-20 01:53] LABS: Platelet Estimate Decreased on smear
[2019-08-20 01:54] LABS: Anisocytosis 1+
[2019-08-20 02:02] VITALS: BP 128/61; PULSE 80; RESP 16; TEMP 37.2; O2SAT 94
[2019-08-20 02:21] LABS: Influenza A and B by PCR Rapid Negative (Negative)
[2019-08-20 02:30] VITALS: BP 123/63; PULSE 76; RESP 23; O2SAT 94
[2019-08-20 03:16] VITALS: TEMP 37.2
== END 2019-08-20 03:17 | disposition home or self-care (01) ==
PROVIDERS: Emergency Provider Emergency Medicine; PCP Student in an Organized Health Care Education/Training Program
DX: R50.9 Fever, unspecified (principal); C91.90 Lymphoid leukemia, unspecified not having achieved remission
CPT/HCPCS: 36415; 71045; 80053; 81003; 83605; 83690; 84145; 85025; 85610; 85730; 87040; 87400; 87502; 93005; 96361; 96374; 99283; 99285; J2405

== ENCOUNTER 2019-10-10 14:29 | Emergency (ER) | payer MEDICARE, OTHER, SELFPAY ==
[2019-10-10 14:33] VITALS: BP 130/76; PULSE 76; RESP 20; TEMP 38.6; O2SAT 98
--- NOTE | 2019-10-10 14:35 | DI.RAD.S_ITS ---
PROCEDURE: XR CHEST 2V INDICATIONS: fever/cough TECHNIQUE: 2 views of the chest were acquired. COMPARISON: [facility], CR, XR CHEST 1V, 08/19/2019, 23:25. FINDINGS: Surgical changes and devices: None. Lungs and pleura: Lungs are clear. No pleural effusions or pneumothorax. Mediastinum: Mediastinal contours are normal. Heart size is normal. Bones and chest wall: No suspicious bony abnormalities. Soft tissues appear unremarkable. IMPRESSION: No acute cardiopulmonary findings. Dictated by: Bhavani Day M.D. on 10/10/2019 at 13:55 Approved by: Bhavani Day M.D. on 10/10/2019 at 13:56
--- NOTE | 2019-10-10 14:54 | ED_ITS ---
HPI - Fever General Chief Complaint: Fever Stated Complaint: lukemia,fever Time Seen by Provider: 10/10/19 14:43 Source: patient Mode of arrival: Ambulatory Limitations: no limitations History of Present Illness HPI Narrative: 64-year-old male with a history of CLL. He is currently under going treatment by Dr. Moreira at [facility]. Here for evaluation of a fever. He states that has been going on for the past couple days. He has had off and on fevers for the past several weeks with some gail rrhea. He states that overall he feels well. He is currently on day 2 of azithromycin. This was given to him for upper respiratory tract infection like symptoms. This was a prescription called in by the oncology provider. Related Data Home Medications Medication Instructions Recorded Confirmed amlodipine 5 mg tablet 5 mg PO QPM 10/05/18 10/10/19 diphenhydramine HCl 50 mg capsule 50 mg PO BEDTIME 10/05/18 03/25/19 lisinopril 20 mg tablet 20 mg PO QPM 10/05/18 03/25/19 aspirin 81 mg tablet,delayed 81 mg PO DAILY 10/06/18 03/25/19 release famotidine 1 tab PO DAILY 12/14/18 03/25/19 metoprolol succinate 75 mg PO BID 12/14/18 10/10/19 venetoclax [Venclexta] 200 mg PO DAILY 10/10/19 Previous Rx's Medication Instructions Recorded atorvastatin 40 mg tablet 40 mg PO BEDTIME #30 tab 10/06/18 tamsulosin [Flomax] 0.4 mg PO DAILY #10 cap 12/14/18 diphenoxylate-atropine 2.5 1 tab PO Q6H PRN #60 tab 03/25/19 mg-0.025 mg tablet levofloxacin 750 mg PO DAILY 5 Days #5 tab 10/10/19 Allergies Allergy/AdvReac Type Severity Reaction Status Date / Time OFATUMUMAB Allergy Unknown pronounced Uncoded 03/10/19 15:11 vaso dilation Review of Systems Constitutional Constitutional: Denies fatigue, Reports fever(s), Denies lethargy and Denies malaise Cardiovascular Cardiovascular: Denies chest pain and Denies dyspnea Respiratory Respiratory: Denies dyspnea Gastrointestinal Gastrointestinal: Denies abdominal pain, Denies nausea and Denies vomiting Musculoskeletal Musculoskeletal: Denies myalgias and Denies arthralgias Integumentary/Breasts Skin/Breast: Denies rash Neurologic Neurologic: Denies behavioral changes Psychiatric Psychiatric: Denies behavioral changes Endocrine Endocrine: Denies fatigue Hematologic/Lymphatic Hematologic/Lymphatic: Denies easy bleeding and Denies easy bruising Patient History Medical History BPH (benign prostatic hyperplasia) (Chronic) Cardiomyopathy (Chronic) History of gross hematuria (Chronic) Hypertension (Acute) Leukemia (Acute) Social History Smoking Status: Former smoker alcohol intake frequency: 0-2 drinks per day Substance Use Type: does not use Exam Initial Vital Signs Initial Vital Signs: Vital Signs Temperature 101.4 F H 10/10/19 14:33 Pulse Rate 76 10/10/19 14:33 Respiratory Rate 20 10/10/19 14:33 Blood Pressure 130/76 10/10/19 14:33 Pulse Oximetry 98 10/10/19 14:33 Const General: cooperative, comfortable, well developed and well groomed Orientation: alert, awake and oriented x3 HENMT Head: normal to inspection and normocephalic Resp Effort & Inspection: normal respiratory effort Auscultation: clear to auscultation bilaterally Cardio Rate: regular rate Rhythm: regular rhythm Skin Lesions: no lesions Rashes: no rashes Neuro General: alert and awake Cognition: normal cognition Speech: speech normal Gait: normal gait Motor: muscle tone normal throughout Extrem General: normal to inspection, capillary refill normal and No edema Psych Appearance: grossly normal and well kempt Course Orders Ordered: ED Orders 10/10/19 14:35 Chest [XR chest 2V] Stat 10/10/19 15:15 CBC Auto Diff [Complete Blood Count AUTO DIFF] Stat Comprehensive Metabolic Panel Stat Influenza A & B (PCR) Stat Lactate (Lactic Acid) Stat Procalcitonin Stat 10/10/19 15:39 Blood Culture Stat Vital Signs Vital signs: Vital Signs - 8 hr 10/10/19 14:33 10/10/19 15:22 Temperature 101.4 F H Pulse Rate 76 77 Respiratory Rate 20 Blood Pressure 130/76 Blood Pressure [Left Arm] 133/60 Pulse Oximetry 98 99 MDM - Fever Lab Data Attestation: I reviewed the patient's lab results. Result diagrams: 10/10/19 15:15 10/10/19 15:15 Labs: Lab Results 10/10/19 10/10/19 10/10/19 Range/Units 15:15 15:15 15:15 WBC 5.4 (4.5-11.0) X10^3/uL RBC 4.22 L (4.5-5.9) X10^6/uL Hgb 13.5 (13.5-17.5) g/dL Hct 38.0 L (41-53) % MCV 90.0 (80-100) fL MCH 32.0 (26-34) PG MCHC 35.6 (30-36) % RDW 16.4 H (11.6-14.8) % Plt Count 93 L (150-400) X10^3/uL Neut % (Auto) 50.7 (50-75) % Lymph % (Auto) 26.3 (25-40) % [place] % (Auto) 22.9 H (3-14) % Eos % (Auto) 0.0 L (2-4) % Baso % (Auto) 0.1 (0-2) % Neut # (Auto) 2700 (7011-1443) /uL Lymph # (Auto) 1400 (2085-6766) /uL [place] # (Auto) 1200 H (0-900) /uL Eos # (Auto) 0 (0-450) /uL Baso # (Auto) 0 (0-100) /uL Sodium 136 L (137-145) mmol/L Potassium 3.9 (3.4-5.1) mmol/L Chloride 98 (98-107) mmol/L Carbon Dioxide 28 (22-32) mmol/L BUN 14 (9-20) mg/dL Creatinine 1.10 (0.66-1.25) mg/dL Estimated GFR > 60.0 (>60) mL/min BUN/Creatinine Ratio 12.7 (6-22) Glucose 144 H (80-110) mg/dL Lactate (0.7-2.1) mmol/L Calcium 8.7 (8.4-10.2) mg/dL Total Bilirubin 1.0 (0.2-1.3) mg/dL AST 18 (17-59) IU/L ALT 16 (<50) IU/L Alkaline Phosphatase 65 (38-126) U/L Total Protein 6.5 (6.3-8.2) g/dL Albumin 4.4 (3.5-5.0) g/dL Globulin 2.1 (1.7-4.1) g/dL Albumin/Globulin Ratio 2.1 (1.0-2.8) Procalcitonin 0.05 (<0.5) ng/mL Influenza A (RT-PCR) (NEGATIVE) Influenza B (RT-PCR) (NEGATIVE) 10/10/19 10/10/19 Range/Units 15:15 15:15 WBC (4.5-11.0) X10^3/uL RBC (4.5-5.9) X10^6/uL Hgb (13.5-17.5) g/dL Hct (41-53) % MCV (80-100) fL MCH (26-34) PG MCHC (30-36) % RDW (11.6-14.8) % Plt Count (150-400) X10^3/uL Neut % (Auto) (50-75) % Lymph % (Auto) (25-40) % [place] % (Auto) (3-14) % Eos % (Auto) (2-4) % Baso % (Auto) (0-2) % Neut # (Auto) (0207-8755) /uL Lymph # (Auto) (0316-0545) /uL [place] # (Auto) (0-900) /uL Eos # (Auto) (0-450) /uL Baso # (Auto) (0-100) /uL Sodium (137-145) mmol/L Potassium (3.4-5.1) mmol/L Chloride (98-107) mmol/L Carbon Dioxide (22-32) mmol/L BUN (9-20) mg/dL Creatinine (0.66-1.25) mg/dL Estimated GFR (>60) mL/min BUN/Creatinine Ratio (6-22) Glucose (80-110) mg/dL Lactate 1.5 (0.7-2.1) mmol/L Calcium (8.4-10.2) mg/dL Total Bilirubin (0.2-1.3) mg/dL AST (17-59) IU/L ALT (<50) IU/L Alkaline Phosphatase (38-126) U/L Total Protein (6.3-8.2) g/dL Albumin (3.5-5.0) g/dL Globulin (1.7-4.1) g/dL Albumin/Globulin Ratio (1.0-2.8) Procalcitonin (<0.5) ng/mL Influenza A (RT-PCR) Flu a negative (NEGATIVE) Influenza B (RT-PCR) Flu b negative (NEGATIVE) Imaging Data Chest x-ray: Radiologist's impression: [address] [address] XRay Report Signed Patient: Jona Hernadez JMR#: [id number] : [id number]:[id number] Age/Sex: 64 / MDate of Service: 10/10/19 Loc: ED Accession Number: [id number] Procedure: XR chest 2V Ordering Provider: Bong Hernandez D.O. PROCEDURE: XR CHEST 2V INDICATIONS: fever/cough TECHNIQUE: 2 views of the chest were acquired. COMPARISON: [facility], , XR CHEST 1V, 08/19/2019, 23:25. FINDINGS: Surgical changes and devices: None. Lungs and pleura: Lungs are clear. No pleural effusions or pneumothorax. Mediastinum: Mediastinal contours are normal. Heart size is normal. Bones and chest wall: No suspicious bony abnormalities. Soft tissues appear unremarkable. IMPRESSION: No acute cardiopulmonary findings. Dictated by: Bhavani Day M.D. on 10/10/2019 at 13:55 Approved by: Bhavani Day M.D. on 10/10/2019 at 13:56 [facility] Narrative Medical decision making narrative: Patient looks very well. Was febrile however not neutropenic. No specific source of infection found however he has had upper respiratory infection like symptoms. He is on day 2 of azithromycin. Blood cultures were ordered and pending at time of discharge. I did discuss the case with his oncologist who recommended that we switch him to Levaquin. He was going to call the patient for follow-up. Patient was informed that there were blood cultures pending at the time of his discharge. He was given strict return precautions. He states that he feels like he wants to go home. He expressed understanding and agreement plan. Discharge Plan Departure Patient Disposition: Home Clinical Impression: CLL (chronic lymphocytic leukemia) Fever Qualifiers: Fever type: unspecified Qualified Code(s): R50.9 - Fever, unspecified Instructions: DI for Fever (Symptom) -- Adult Activity Restrictions/Additional Instructions: Continue all of your medications as directed however stop the azithromycin. Start taking the Levaquin today as directed. You can take Tylenol for any fevers. Contact your oncologist for a follow-up. Blood cultures were pending at the time of your discharge. We will contact you if these are positive. Return to the emergency department for any new or worsening symptoms. Prescriptions were transmitted to the [facility] on [address] Prescriptions: New levofloxacin 750 mg tablet 750 mg PO DAILY 5 Days Qty: 5 RF: 0 No Action lisinopril 20 mg tablet 20 mg PO QPM RF: 0 amlodipine 5 mg tablet 5 mg PO QPM RF: 0 diphenhydramine HCl 50 mg capsule 50 mg PO BEDTIME RF: 0 atorvastatin 40 mg tablet 40 mg PO BEDTIME Qty: 30 RF: 5 aspirin 81 mg tablet,delayed release (DR/EC) 81 mg PO DAILY RF: 0 diphenoxylate-atropine 2.5-0.025 mg tablet 1 tab PO Q6H PRN (Reason: diarrhea) Qty: 60 RF: 0 metoprolol succinate 50 mg tablet extended release 24 hr 75 mg PO BID RF: 0 famotidine 1 tab PO DAILY RF: 0 tamsulosin [Flomax] 0.4 mg capsule 0.4 mg PO DAILY Qty: 10 RF: 0 Venclexta 100 mg tablet 200 mg PO DAILY RF: 0 Referrals: Michel Bran MD [Primary Care Provider] -
[2019-10-10 15:22] VITALS: BP 133/60; PULSE 77; O2SAT 99
[2019-10-10 15:37] LABS: Add Manual Diff / Slide Review NO; Basophils Absolute Auto 0 /uL (0-100); Basophils Percent Auto 0.1 % (0-2); Eosinophils Absolute Auto 0 /uL (0-450); Hemoglobin 13.5 g/dL (13.5-17.5); Lymphocytes Absolute Auto 1400 /uL (1100-4500); Lymphocytes Percent Auto 26.3 % (25-40); Mean Corpuscular HGB Conc 35.6 % (30-36); Monocytes Absolute Auto 1200 /uL (0-900); Monocytes Percent Auto 22.9 % (3-14); Neutrophils Absolute Auto 2700 /uL (1500-7000); Neutrophils Percent Auto 50.7 % (50-75); Platelet Count 93 X10^3/uL (150-400); Red Blood Cell Count 4.22 X10^6/uL (4.5-5.9); Red Cell Distribution Width 16.4 % (11.6-14.8); White Blood Cell Count 5.4 X10^3/uL (4.5-11.0)
[2019-10-10 15:47] LABS: Lactate (Lactic Acid) 1.5 mmol/L (0.7-2.1)
[2019-10-10 15:49] LABS: Alanine Aminotransferase 16 IU/L (<50); Albumin 4.4 g/dL (3.5-5.0); Albumin Globulin Ratio 2.1 (1.0-2.8); Alkaline Phosphatase 65 U/L (38-126); Aspartate Aminotransferase 18 IU/L (17-59); BUN Creatinine Ratio 12.7 (6-22); Blood Urea Nitrogen 14 mg/dL (9-20); Calcium 8.7 mg/dL (8.4-10.2); Carbon Dioxide 28 mmol/L (22-32); Chloride 98 mmol/L (98-107); Estimated Glomerular Filt Rate > 60.0 mL/min (>60); Globulin 2.1 g/dL (1.7-4.1); Glucose 144 mg/dL (80-110); HEMOLYSIS < 15 (0-50); Potassium 3.9 mmol/L (3.4-5.1); Sodium 136 mmol/L (137-145); Total Protein 6.5 g/dL (6.3-8.2)
[2019-10-10 16:03] LABS: Influenza A - CEPHEID Flu A NEGATIVE (NEGATIVE); Influenza B - CEPHEID Flu B NEGATIVE (NEGATIVE); Procalcitonin 0.05 ng/mL (<0.5)
[2019-10-10 17:00] VITALS: BP 146/67; PULSE 76; RESP 18; O2SAT 99
== END 2019-10-10 17:00 | disposition home or self-care (01) ==
PROVIDERS: Emergency Provider Emergency Medicine; PCP Student in an Organized Health Care Education/Training Program
DX: R50.9 Fever, unspecified (principal); C91.10 Chronic lymphocytic leukemia of B-cell type not having achieved remission; R05 Cough
CPT/HCPCS: 36415; 71046; 80053; 83605; 84145; 85025; 87040; 87502; 99282; 99284

== ENCOUNTER → 2019-11-10 14:31 | Outpatient (CLI) | payer MEDICARE, OTHER, SELFPAY | PROVIDERS: PCP Student in an Organized Health Care Education/Training Program; Visit Provider Student in an Organized Health Care Education/Training Program | DX: J32.9 Chronic sinusitis, unspecified (principal) ==

== ENCOUNTER → 2019-11-28 13:57 | Outpatient (CLI) | payer MEDICARE, OTHER, SELFPAY ==
--- NOTE | 2019-11-28 14:13 | DI.CT.S_ITS ---
PROCEDURE: CT SINUS SCREEN WO CON INDICATIONS: sinus pain TECHNIQUE: Noncontrast 3.0 mm axial images acquired from the frontal sinuses to the mid-sella, with coronal and sagittal reformats. For radiation dose reduction, the following was used: automated exposure control, adjustment of mA and/or kV according to patient size. COMPARISON: None. FINDINGS: Image quality: Excellent. Maxillary Sinuses: No bony remodeling or destruction. Sinuses are clear. Ethmoid Air Cells: No bony remodeling or destruction. Sinuses are clear. Sphenoid Sinuses: No bony remodeling or destruction. Sinuses are clear. Frontal Sinuses: No bony remodeling or destruction. Sinuses are clear. Ostiomeatal Complexes: Ostiomeatal complexes are patent, yet there are constitutionally narrowed. There is a Paul air cell seen on the right side. Miscellaneous: Visualized intra-orbital contents are normal. No lisbeth bullosa or paradoxical turbinate curvature. There is minimal leftward nasal septal deviation. IMPRESSION: No significant active paranasal sinus disease is seen. Minimal leftward nasal septal deviation can be seen. Narrowed ostiomeatal complexes, with a Paul air cell seen on the right side. Dictated by: Basim Lopez M.D. on 11/28/2019 at 13:53 Approved by: Basim Lopez M.D. on 11/28/2019 at 13:54
== END ==
PROVIDERS: PCP Student in an Organized Health Care Education/Training Program; Visit Provider Student in an Organized Health Care Education/Training Program
DX: J32.0 Chronic maxillary sinusitis (principal); D89.9 Disorder involving the immune mechanism, unspecified; Z16.20 Resistance to unspecified antibiotic
CPT/HCPCS: 70486

== ENCOUNTER → 2020-01-02 17:40 | Outpatient (CLI) | payer MEDICARE, OTHER, SELFPAY ==
--- NOTE | 2020-01-02 17:42 | DI.RAD.S_ITS ---
PROCEDURE: XR CHEST 2V INDICATIONS: lingering productive cough, greenish sputum, fatigue TECHNIQUE: 2 views of the chest were acquired. COMPARISON: [facility], CR, XR CHEST 2V, 10/10/2019, 14:35. [facility], CR, XR CHEST 1V, 08/19/2019, 23:25. FINDINGS: Surgical changes and devices: None. Lungs and pleura: Lungs are clear. No pleural effusions or pneumothorax. Mediastinum: Mediastinal contours are normal. Heart size is normal. Bones and chest wall: No suspicious bony abnormalities. Soft tissues appear unremarkable. IMPRESSION: Normal for age, source of current cough and sputum production symptoms is not seen. Dictated by: Ranulfo Osorio M.D. on 01/03/2020 at 10:25 Approved by: Ranulfo Osorio M.D. on 01/03/2020 at 10:25
== END ==
PROVIDERS: PCP Student in an Organized Health Care Education/Training Program; Referring Provider Student in an Organized Health Care Education/Training Program; Visit Provider Student in an Organized Health Care Education/Training Program
DX: R05 Cough (principal); R53.83 Other fatigue; R09.3 Abnormal sputum
CPT/HCPCS: 71046

== ENCOUNTER → 2020-01-09 08:30 | Outpatient (CLI) | payer MEDICARE, OTHER, SELFPAY ==
--- NOTE | 2020-01-09 08:31 | DI.NM.S_ITS ---
PROCEDURE: NM GASTRIC EMPTYING STUDY RADIOPHARMACEUTICAL: 1.0 mCi Tc-99m sulfur colloid in an egg sandwich. INDICATIONS: Nausea TECHNIQUE: A Tc-99m labeled sulfur colloid labeled egg sandwich or oatmeal was served to the patient. Anterior and posterior planar images of the abdomen were obtained at 0 minutes and 30 minutes, then at hourly intervals up to 4 hours. The patient was upright and ambulating during the interval. COMPARISON: None. FINDINGS: The stomach has normal size, morphology, and position. There is normal emptying of solid gastric contents from the stomach by visual inspection. No gastroesophageal reflux is visualized. The percentage of tracer retained at specific time points are as follows: Time point Percent gastric retention Normal range 30 minutes 70% 70% or more 1 hour 46% 30% to 90% 2 hours 24% 60% or less 3 hours 15% 30% or less 4 hours 6% 10% or less IMPRESSION: Normal examination without evidence of delayed gastric emptying. Dictated by: Sarah Guadarrama MD, PhD on 01/09/2020 at 14:13 Approved by: Sarah Guadarrama MD, PhD on 01/09/2020 at 14:21
== END ==
PROVIDERS: PCP Student in an Organized Health Care Education/Training Program; Referring Provider Student in an Organized Health Care Education/Training Program; Visit Provider Student in an Organized Health Care Education/Training Program
DX: R11.0 Nausea (principal); K31.84 Gastroparesis
CPT/HCPCS: 78264; A9541

== ENCOUNTER → 2020-01-16 16:01 | Outpatient (CLI) | payer MEDICARE, OTHER, SELFPAY ==
--- NOTE | 2020-01-16 | DI.ECHO.S_ITS ---
[facility] +---------+ : : [address] : : : : [id number] : : : : Phone: [phone]+ Echocardiogram Report + + :Name: FAIZA PATTON Study Date: 01/16/2020 Height: 70 in : :[facility] Weight: 229 lb : : Gender: Male BSA: 2.2 m2 : :: 1955 Age: 64 yrs BP: 138/86 mmHg: :Reason For Study: Hypertrophic Cardiomyopathy : :Ordering Physician: Claudia : :Florinda Dixon Performed By: Elvia Russell : :Referring: CLAUDIA RAMIRES : + + Interpretation Summary Left ventricular systolic function is normal without focal wall motion abnormalities with the ejection fraction visually estimated to be 60-65%. Global logitudinal peak systolic strain average is moderately decreased at - 11.2%, with the anterior and lateral walker being mostly affected. 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 Diastolic parameters suggest a relaxation abnormality of the left ventricle, consistent with probable normal filling pressures. The right ventricle is normal in size and function. Pulmonary artery pressures cannot be estimated because of the lack of a measurable TR jet velocity but the IVC suggests a CVP of around 3 mmHg. The left atrium is moderately dilated. The anterior mitral valve leaflet appears to be significantly redundant and thickened with mild to moderate mitral regurgitation. There is no other significant valvular heart disease. The ascending aorta and aortic arch are mild-moderately enlarged. Procedure: A two-dimensional transthoracic echocardiogram with color flow and Doppler was performed. The study quality was technically adequate. There is no prior echocardiogram noted for this patient. The patient was in sinus bradycardia with heart rates between 55-32 bpm during the exam. Left Ventricle: The left ventricle is normal in size. There is moderate asymmetric left ventricular hypertrophy. The echo findings are consistent with hypertrophic cardiomyopathy. 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 The LVOT velocity is 4.9 m/s. The left ventricular outflow velocity with valsalva is 5.8. Left ventricular systolic function is normal without focal wall motion abnormalities. The ejection fraction is estimated to be 60-65%. Global logitudinal peak systolic strain average is moderately decreased at -11.2%, with the anterior and lateral walker being mostly affected. Diastolic parameters suggest a relaxation abnormality of the left ventricle, consistent with probable normal filling pressures. Right Ventricle: The right ventricle is normal in size and function. Atria: The left atrium is moderately dilated. The right atrium is normal in size. There is no Doppler evidence for an interatrial shunt. Mitral Valve: The anterior mitral valve leaflet appears to be significantly redundant and thickened. There is systolic anterior motion of the mitral valve. There is systolic anterior motion of the chordal apparatus. There is mild to moderate mitral regurgitation. Aortic Valve: The aortic valve is trileaflet. The aortic valve opens well. No aortic regurgitation is present. Tricuspid Valve: The tricuspid valve is normal in structure and function. There is trace tricuspid regurgitation. Pulmonary artery pressures cannot be estimated because of the lack of a measurable TR jet velocity but the IVC suggests a CVP of around 3 mmHg. Pulmonic Valve: The pulmonic valve is not well seen, but is grossly normal. There is no pulmonic valvular regurgitation. There is no other significant valvular heart disease. Great Vessels: The aortic root is normal size. The ascending aorta is mild- moderately enlarged. The aortic arch is mild-moderately enlarged. The IVC is of normal diameter and collapses greater than 50% with a sniff. This suggests a low right atrial pressure of 3 mm Hg. Pericardium/ Pleura There is no pericardial effusion. There is no pleural effusion. MMode/2D Measurements & Calculations LVIDd: 4.4 cm LVOT diam: 2.1 cm LVIDs: 2.9 cm Ao root diam: 3.3 cm FS: 34.1 % asc Aorta Diam: 3.8 cm EPSS: 0.24 cm Ao Arch Diam (Prox Trans): 3.9 cm IVSd: 1.7 cm LVPWd: 1.4 cm LV trujillo. diameter/BSA (cm/m^2): 2.0 LV sys. diameter/BSA (cm/m^2): 1.3 LA A2 area: 29.2 cm2 RA long axis: 4.5 cm LA A4 area: 22.2 cm2 RA area: 14.5 cm2 LA length (vol): 5.3 cm RA vol: 39.6 ml LA vol: 103.2 ml RA : 17.9 ml/m2 LA vol index: 46.7 ml/m2 IVC diam: 1.5 cm RVD1 (basal): 3.6 cm TAPSE: 2.3 cm Doppler Measurements & Calculations Ao V2 max: 435.0 cm/sec MV E max javi: 86.2 cm/sec Ao V2 mean: 308.6 cm/sec MV A max javi: 90.6 cm/sec Ao max P.7 mmHg MV E/A: 0.95 Ao mean P.1 mmHg Med Peak E' Javi: 3.8 cm/sec Ao V2 VTI: 102.1 cm E/E' med: 22.8 Lat Peak E' Javi: 5.8 cm/sec E/E' lat: 14.9 E/e' average: 18.8 MV dec time: 0.19 sec MV P1/2t: 56.5 msec PA V2 max: 111.5 cm/sec MV P1/2t max javi: 87.6 cm/sec PA V2 mean: 80.0 cm/sec MVA(P1/2t): 3.9 cm2 PA mean P.8 mmHg PA Accel Time: 0.10 sec Reading Physician:MALINA
== END ==
PROVIDERS: PCP Student in an Organized Health Care Education/Training Program; Referring Provider Hospitalist; Visit Provider Hospitalist
DX: I34.0 Nonrheumatic mitral (valve) insufficiency (principal); I42.2 Other hypertrophic cardiomyopathy; I77.89 Other specified disorders of arteries and arterioles
CPT/HCPCS: 93306

== ENCOUNTER 2020-03-05 14:29 | Emergency (ER) | payer MEDICARE, OTHER, SELFPAY ==
[2020-03-05 14:32] VITALS: BP 114/67; PULSE 61; RESP 14; TEMP 36.4; O2SAT 97; BMI 31.5
--- NOTE | 2020-03-05 15:18 | DI.RAD.S_ITS ---
PROCEDURE: XR CHEST 1V INDICATIONS: weakness TECHNIQUE: One view of the chest was acquired. COMPARISON: [facility], CR, XR CHEST 2V, 01/02/2020, 17:53. FINDINGS: Surgical changes and devices: None. Lungs and pleura: There is a small area of developing consolidation within the left lung base near the costophrenic angle. This is new since the prior study. No additional areas of definite pulmonary consolidation are evident. No effusion or pneumothorax is identified. Mediastinum: Mediastinal contours appear normal. Heart size is normal. There is aortic atherosclerosis. Bones and chest wall: No suspicious bony lesions. Overlying soft tissues appear unremarkable. IMPRESSION: Left lower lobe pneumonia versus atelectasis. Dictated by: Levon Monson M.D. on 03/05/2020 at 15:01 Approved by: Levon Monson M.D. on 03/05/2020 at 15:04
[2020-03-05 15:32] LABS: Add Manual Diff / Slide Review NO; Basophils Absolute Auto 0 /uL (0-100); Basophils Percent Auto 0.5 % (0-2); Eosinophils Absolute Auto 0 /uL (0-450); Hematocrit 41.5 % (41-53); Lymphocytes Absolute Auto 1300 /uL (1100-4500); Lymphocytes Percent Auto 26.9 % (25-40); Mean Corpuscular Hemoglobin 34.3 PG (26-34); Mean Corpuscular Volume 95.3 fL (80-100); Monocytes Absolute Auto 1100 /uL (0-900); Monocytes Percent Auto 22.5 % (3-14); Neutrophils Absolute Auto 2400 /uL (1500-7000); Neutrophils Percent Auto 50.1 % (50-75); Platelet Count 123 X10^3/uL (150-400); Red Blood Cell Count 4.36 X10^6/uL (4.5-5.9); Red Cell Distribution Width 14.7 % (11.6-14.8); White Blood Cell Count 4.7 X10^3/uL (4.5-11.0)
[2020-03-05 15:44] LABS: Alanine Aminotransferase 49 IU/L (<50); Albumin 4.4 g/dL (3.5-5.0); Alkaline Phosphatase 91 U/L (38-126); Aspartate Aminotransferase 42 IU/L (17-59); BUN Creatinine Ratio 15.2 (6-22); Bilirubin Total 1.1 mg/dL (0.2-1.3); Blood Urea Nitrogen 17 mg/dL (9-20); Calcium 8.9 mg/dL (8.4-10.2); Carbon Dioxide 26 mmol/L (22-32); Chloride 97 mmol/L (98-107); Estimated Glomerular Filt Rate > 60.0 mL/min (>60); Globulin 2.2 g/dL (1.7-4.1); Glucose 478 mg/dL (80-110); HEMOLYSIS < 15 (0-50); Potassium 4.9 mmol/L (3.4-5.1); Sodium 133 mmol/L (137-145); Total Protein 6.6 g/dL (6.3-8.2)
[2020-03-05 15:56] LABS: Troponin I < 0.012 ng/mL (0.01-0.034)
[2020-03-05 15:59] LABS: Procalcitonin 0.06 ng/mL (<0.5)
[2020-03-05] MEDS: SODIUM CHLORIDE 0.9% 1,000 ML 1000 ML IV (17:20)
--- NOTE | 2020-03-05 17:33 | ED_ITS ---
HPI - General Adult <Frances Cruz MD - Last Filed: 03/06/20 07:44> General Chief complaint: Weakness Stated complaint: DrNeyda sent over for eval. onc. patient blood workup Time Seen by Provider: 03/05/20 15:17 Source: patient Mode of arrival: Ambulatory History of Present Illness HPI narrative: 64-year-old gentleman with a history of CLL been feeling weak with low-grade fevers sent over by his oncology office for further evaluation. Related Data Home Medications Medication Instructions Recorded Confirmed diphenhydramine HCl 50 mg capsule 50 mg PO BEDTIME 10/05/18 12/22/19 metoprolol succinate 75 mg PO BID 12/14/18 12/22/19 venetoclax [Venclexta] 200 mg PO DAILY 10/10/19 12/22/19 amlodipine 5 mg tablet 2.5 mg PO QPM tab 11/08/19 12/22/19 olanzapine 2.5 mg tablet 2.5 mg PO BEDTIME 12/22/19 tamsulosin 0.4 mg capsule 0.4 mg PO DAILY 12/22/19 12/22/19 Previous Rx's Medication Instructions Recorded atorvastatin 40 mg tablet 40 mg PO BEDTIME #90 tab 11/08/19 omeprazole 20 mg capsule,delayed 20 mg PO DAILY #30 cap 12/22/19 release promethazine 50 mg tablet 50 mg PO BEDTIME PRN #30 tab 12/22/19 amoxicillin-pot clavulanate 1 tab PO BID #20 tab 03/05/20 [Augmentin] Allergies Allergy/AdvReac Type Severity Reaction Status Date / Time OFATUMUMAB Allergy Unknown pronounced Uncoded 03/05/20 14:32 vaso dilation <Santos Durham DO - Last Filed: 03/06/20 04:10> General Source: patient and family Mode of arrival: Ambulatory Limitations: no limitations History of Present Illness HPI narrative: 64M former smoker with CLL presents with his and the chief complaint of feeling weak and with low grade fever and some chills over the past week or so. He is not significantly short of breath but has had some cough which occasionally has sputum. He denies chest pain, N/V/D. He has been sleeping a bit more than normal. Has been sleeping a fair amount, perhaps more than normal. He has been following the stay at home rules religiously and denies exposure to persons known to have COVID. He contacted both his PCP and oncologist, both of whom recommended he come to be evaluated. Onset (ago): day(s) Location: chest Severity: moderate Relieving factors: none Exacerbating factors: none Associated symptoms: cough Treatments prior to arrival: none <Santos Durham DO - Last Filed: 03/06/20 04:10> Constitutional Constitutional: Denies chills, Reports fatigue, Denies fever(s), Denies frequent falls, Denies lethargy and Reports weakness Eyes Eyes: Denies change in vision, Denies eye discharge, Denies irritation and Denies loss of vision ENT Ears, Nose, Mouth, and Throat: Denies change in voice, Denies dizziness, Denies neck pain, Denies sore throat and Denies throat swelling Cardiovascular Cardiovascular: Denies chest pain, Denies irregular heart rhythm, Denies lightheadedness, Denies palpitations, Denies dyspnea, Denies dyspnea on exertion and Denies orthopnea Respiratory Respiratory: Reports cough, Denies dyspnea, Denies dyspnea on exertion and Denies wheezing Gastrointestinal Gastrointestinal: Denies abdominal pain, Denies change in bowel habits, Denies diarrhea, Denies nausea and Denies vomiting Genitourinary Genitourinary: Denies hematuria, Denies flank pain, Denies urinary incontinence and Denies urinary urgency Musculoskeletal Musculoskeletal: Denies back pain, Denies muscle weakness, Denies neck pain, Denies numbness and Denies tingling Integumentary/Breasts Skin/Breast: Denies pruritus, Denies erythema, Denies rash and Denies wounds Neurologic Neurologic: Denies behavioral changes, Denies confusion, Denies dizziness, Denies frequent falls, Denies loss of vision, Denies numbness, Denies tingling and Reports weakness Psychiatric Psychiatric: Denies anxiety, Denies behavioral changes, Denies confusion, Denies depression, Denies homicidal ideation and Denies suicidal ideation Endocrine Endocrine: Reports fatigue, Denies flushing and Denies palpitations Hematologic/Lymphatic Hematologic/Lymphatic: Denies easy bruising Allergic/Immunologic Allergic/Immunologic: Denies urticaria, Denies throat swelling and Denies wheezing Patient History <Frances Cruz MD - Last Filed: 03/06/20 07:44> Medical History BPH (benign prostatic hyperplasia) (Chronic) Cardiomyopathy (Chronic) History of gross hematuria (Chronic) Hypertension (Acute) Leukemia (Acute) Surgical History History of allogeneic stem cell transplant (Acute) No pertinent past surgical history (Chronic) S/P TURP (Resolved) Family History Other No pertinent family history Social History Smoking Status: Former smoker Smoking Status: Former smoker alcohol intake frequency: 0-2 drinks per day Substance Use Type: does not use Exam <Frances Cruz MD - Last Filed: 03/06/20 07:44> Initial Vital Signs Initial Vital Signs: Vital Signs Temperature 97.6 F 03/05/20 14:32 Pulse Rate 61 03/05/20 14:32 Respiratory Rate 14 03/05/20 14:32 Blood Pressure 114/67 03/05/20 14:32 Pulse Oximetry 97 03/05/20 14:32 <Santos Durham DO - Last Filed: 03/06/20 04:10> Narrative Exam Narrative: GENERAL: [64] year old patient appears stated age. Well- nourished, well-developed patient, in mild distress. HEAD: Atraumatic. Normocephalic. EYES: Pupils equal round and reactive. Extraocular motions intact. No scleral icterus. No injection or drainage. ENT: Nose without bleeding, purulent drainage. Throat without erythema, tonsillar hypertrophy or exudate. Airway patent. NECK: Trachea midline. Non tender CARDIOVASCULAR: Regular rate and rhythm without murmurs, gallops, or rubs. RESPIRATORY: Clear to auscultation. Breath sounds equal bilaterally. No wheezes, rales, or rhonchi. GASTROINTESTINAL: Abdomen soft, non-tender, nondistended. EXTREMITIES: No edema or joint tenderness. BACK: Nontender without deformity or crepitance. No flank tenderness. NEURO: AOx3. SKIN: No rash or erythema of visible areas Initial Vital Signs Initial Vital Signs: Vital Signs Temperature 97.6 F 03/05/20 14:32 Pulse Rate 61 03/05/20 14:32 Respiratory Rate 14 03/05/20 14:32 Blood Pressure 114/67 03/05/20 14:32 Pulse Oximetry 97 03/05/20 14:32 Course <Frances Cruz MD - Last Filed: 03/06/20 07:44> Orders Ordered: Discontinued Medications Sodium Chloride (Normal Saline 0.9%) 1,000 mls @ 1,000 mls/hr IV BOLUS ONE Stop: 03/05/20 16:16 Last Infusion: 03/05/20 18:53 Dose: 0 mls/hr Documented by: Admin: 03/05/20 17:20 Dose: 1,000 mls/hr Documented by: CECILY Vital Signs Vital signs: Vital Signs - 8 hr 03/05/20 20:24 Pulse Rate 86 Respiratory Rate 16 Blood Pressure 118/80 Pulse Oximetry 97 <Santos Durham DO - Last Filed: 03/06/20 04:10> Orders Ordered: Discontinued Medications Sodium Chloride (Normal Saline 0.9%) 1,000 mls @ 1,000 mls/hr IV BOLUS ONE Stop: 03/05/20 16:16 Last Infusion: 03/05/20 18:53 Dose: 0 mls/hr Documented by: Admin: 03/05/20 17:20 Dose: 1,000 mls/hr Documented by: CECILY Vital Signs Vital signs: Vital Signs - 8 hr 03/05/20 20:24 Pulse Rate 86 Respiratory Rate 16 Blood Pressure 118/80 Pulse Oximetry 97 Medical Decision Making <Frances Cruz MD - Last Filed: 03/06/20 07:44> Medical Records Medical records reviewed: Yes I reviewed the patient's medical records. Lab Data Lab results reviewed: Yes I reviewed the patient's lab results. Result diagrams: 03/05/20 15:23 03/05/20 15:23 Labs: Lab Results 03/05/20 03/05/20 03/05/20 Range/Units 15:23 15:23 15:23 WBC 4.7 (4.5-11.0) X10^3/uL RBC 4.36 L (4.5-5.9) X10^6/uL Hgb 15.0 (13.5-17.5) g/dL Hct 41.5 (41-53) % MCV 95.3 (80-100) fL MCH 34.3 H (26-34) PG MCHC 36.0 (30-36) % RDW 14.7 (11.6-14.8) % Plt Count 123 L (150-400) X10^3/uL Neut % (Auto) 50.1 (50-75) % Lymph % (Auto) 26.9 (25-40) % Mcdowell % (Auto) 22.5 H (3-14) % Eos % (Auto) 0.0 L (2-4) % Baso % (Auto) 0.5 (0-2) % Neut # (Auto) 2400 (7041-3045) /uL Lymph # (Auto) 1300 (1238-7976) /uL Mcdowell # (Auto) 1100 H (0-900) /uL Eos # (Auto) 0 (0-450) /uL Baso # (Auto) 0 (0-100) /uL Sodium 133 L (137-145) mmol/L Potassium 4.9 (3.4-5.1) mmol/L Chloride 97 L (98-107) mmol/L Carbon Dioxide 26 (22-32) mmol/L BUN 17 (9-20) mg/dL Creatinine 1.12 (0.66-1.25) mg/dL Estimated GFR > 60.0 (>60) mL/min BUN/Creatinine Ratio 15.2 (6-22) Glucose 478 H (80-110) mg/dL Lactate (0.7-2.1) mmol/L Calcium 8.9 (8.4-10.2) mg/dL Total Bilirubin 1.1 (0.2-1.3) mg/dL AST 42 (17-59) IU/L ALT 49 (<50) IU/L Alkaline Phosphatase 91 (38-126) U/L Troponin I (0.01-0.034) ng/mL Total Protein 6.6 (6.3-8.2) g/dL Albumin 4.4 (3.5-5.0) g/dL Globulin 2.2 (1.7-4.1) g/dL Albumin/Globulin Ratio 2.0 (1.0-2.8) Procalcitonin 0.06 (<0.5) ng/mL Urine Color Urine Appearance Urine pH (4.5-8.0) Ur Specific [place] (1.000-1.035) Urine Protein (Negative) Urine Glucose (UA) (Negative) g/dL Urine Ketones (NEGATIVE) Urine Occult Blood (Negative) Urine Nitrate (Negative) Urine Bilirubin (NEGATIVE) Urine Urobilinogen (0.2) E.U./dL Ur Leukocyte Esterase (NEGATIVE) Urine RBC (0-5/HPF) Urine WBC (0-5/HPF) Urine Bacteria (None) Ur Culture Indicated? COVID-19 PCR (Not Detect) 03/05/20 03/05/20 03/05/20 Range/Units 15:23 17:10 17:10 WBC (4.5-11.0) X10^3/uL RBC (4.5-5.9) X10^6/uL Hgb (13.5-17.5) g/dL Hct (41-53) % MCV (80-100) fL MCH (26-34) PG MCHC (30-36) % RDW (11.6-14.8) % Plt Count (150-400) X10^3/uL Neut % (Auto) (50-75) % Lymph % (Auto) (25-40) % Mcdowell % (Auto) (3-14) % Eos % (Auto) (2-4) % Baso % (Auto) (0-2) % Neut # (Auto) (3984-1432) /uL Lymph # (Auto) (7133-9740) /uL Mcdowell # (Auto) (0-900) /uL Eos # (Auto) (0-450) /uL Baso # (Auto) (0-100) /uL Sodium (137-145) mmol/L Potassium (3.4-5.1) mmol/L Chloride (98-107) mmol/L Carbon Dioxide (22-32) mmol/L BUN (9-20) mg/dL Creatinine (0.66-1.25) mg/dL Estimated GFR (>60) mL/min BUN/Creatinine Ratio (6-22) Glucose (80-110) mg/dL Lactate 1.7 (0.7-2.1) mmol/L Calcium (8.4-10.2) mg/dL Total Bilirubin (0.2-1.3) mg/dL AST (17-59) IU/L ALT (<50) IU/L Alkaline Phosphatase (38-126) U/L Troponin I < 0.012 (0.01-0.034) ng/mL Total Protein (6.3-8.2) g/dL Albumin (3.5-5.0) g/dL Globulin (1.7-4.1) g/dL Albumin/Globulin Ratio (1.0-2.8) Procalcitonin (<0.5) ng/mL Urine Color Urine Appearance Urine pH (4.5-8.0) Ur Specific [place] (1.000-1.035) Urine Protein (Negative) Urine Glucose (UA) (Negative) g/dL Urine Ketones (NEGATIVE) Urine Occult Blood (Negative) Urine Nitrate (Negative) Urine Bilirubin (NEGATIVE) Urine Urobilinogen (0.2) E.U./dL Ur Leukocyte Esterase (NEGATIVE) Urine RBC (0-5/HPF) Urine WBC (0-5/HPF) Urine Bacteria (None) Ur Culture Indicated? COVID-19 PCR Not detected (Not Detect) 03/05/20 Range/Units 17:10 WBC (4.5-11.0) X10^3/uL RBC (4.5-5.9) X10^6/uL Hgb (13.5-17.5) g/dL Hct (41-53) % MCV (80-100) fL MCH (26-34) PG MCHC (30-36) % RDW (11.6-14.8) % Plt Count (150-400) X10^3/uL Neut % (Auto) (50-75) % Lymph % (Auto) (25-40) % Mcdowell % (Auto) (3-14) % Eos % (Auto) (2-4) % Baso % (Auto) (0-2) % Neut # (Auto) (4181-6875) /uL Lymph # (Auto) (3340-6429) /uL Mcdowell # (Auto) (0-900) /uL Eos # (Auto) (0-450) /uL Baso # (Auto) (0-100) /uL Sodium (137-145) mmol/L Potassium (3.4-5.1) mmol/L Chloride (98-107) mmol/L Carbon Dioxide (22-32) mmol/L BUN (9-20) mg/dL Creatinine (0.66-1.25) mg/dL Estimated GFR (>60) mL/min BUN/Creatinine Ratio (6-22) Glucose (80-110) mg/dL Lactate (0.7-2.1) mmol/L Calcium (8.4-10.2) mg/dL Total Bilirubin (0.2-1.3) mg/dL AST (17-59) IU/L ALT (<50) IU/L Alkaline Phosphatase (38-126) U/L Troponin I (0.01-0.034) ng/mL Total Protein (6.3-8.2) g/dL Albumin (3.5-5.0) g/dL Globulin (1.7-4.1) g/dL Albumin/Globulin Ratio (1.0-2.8) Procalcitonin (<0.5) ng/mL Urine Color Yellow Urine Appearance Clear Urine pH 5.5 (4.5-8.0) Ur Specific [place] 1.015 (1.000-1.035) Urine Protein Negative (Negative) Urine Glucose (UA) 2+ H (Negative) g/dL Urine Ketones Negative (NEGATIVE) Urine Occult Blood 1+ H (Negative) Urine Nitrate Negative (Negative) Urine Bilirubin Negative (NEGATIVE) Urine Urobilinogen 0.2 (0.2) E.U./dL Ur Leukocyte Esterase Negative (NEGATIVE) Urine RBC 1-5/hpf (0-5/HPF) Urine WBC 1-5/hpf (0-5/HPF) Urine Bacteria None seen (None) Ur Culture Indicated? Cult not indicated COVID-19 PCR (Not Detect) Point of Care Testing Glucose POC 292 Point of care testing: Point of Care Testing Glucose POC 292 Imaging Data Chest x-ray: Radiologist's Impression: IMPRESSION: Left lower lobe pneumonia versus atelectasis. Dictated by: Levon Monson M.D. on 03/05/2020 at 15:01 ECG Data Attestation: I personally reviewed and interpreted this ECG as follows: Interpretation: Ventricular rate of 55 with a left bundle branch block without any criteria for acute coronary syndrome or STEMI. Similar to comparison EKG August 19, 2019 <Santos Durham DO - Last Filed: 03/06/20 04:10> Lab Data Labs: Lab Results 03/05/20 03/05/2003/05/20 Range/Units 15:23 15:23 15:23 WBC 4.7 (4.5-11.0) X10^3/uL RBC 4.36 L (4.5-5.9) X10^6/uL Hgb 15.0 (13.5-17.5) g/dL Hct 41.5 (41-53) % MCV 95.3 (80-100) fL MCH 34.3 H (26-34) PG MCHC 36.0 (30-36) % RDW 14.7 (11.6-14.8) % Plt Count 123 L (150-400) X10^3/uL Neut % (Auto) 50.1 (50-75) % Lymph % (Auto) 26.9 (25-40) % Mcdowell % (Auto) 22.5 H (3-14) % Eos % (Auto) 0.0 L (2-4) % Baso % (Auto) 0.5 (0-2) % Neut # (Auto) 2400 (7097-0053) /uL Lymph # (Auto) 1300 (1229-7582) /uL Mcdowell # (Auto) 1100 H (0-900) /uL Eos # (Auto) 0 (0-450) /uL Baso # (Auto) 0 (0-100) /uL Sodium 133 L (137-145) mmol/L Potassium 4.9 (3.4-5.1) mmol/L Chloride 97 L (98-107) mmol/L Carbon Dioxide 26 (22-32) mmol/L BUN 17 (9-20) mg/dL Creatinine 1.12 (0.66-1.25) mg/dL Estimated GFR > 60.0 (>60) mL/min BUN/Creatinine Ratio 15.2 (6-22) Glucose 478 H (80-110) mg/dL Lactate (0.7-2.1) mmol/L Calcium 8.9 (8.4-10.2) mg/dL Total Bilirubin 1.1 (0.2-1.3) mg/dL AST 42 (17-59) IU/L ALT 49 (<50) IU/L Alkaline Phosphatase 91 (38-126) U/L Troponin I (0.01-0.034) ng/mL Total Protein 6.6 (6.3-8.2) g/dL Albumin 4.4 (3.5-5.0) g/dL Globulin 2.2 (1.7-4.1) g/dL Albumin/Globulin Ratio 2.0 (1.0-2.8) Procalcitonin 0.06 (<0.5) ng/mL Urine Color Urine Appearance Urine pH (4.5-8.0) Ur Specific [place] (1.000-1.035) Urine Protein (Negative) Urine Glucose (UA) (Negative) g/dL Urine Ketones (NEGATIVE) Urine Occult Blood (Negative) Urine Nitrate (Negative) Urine Bilirubin (NEGATIVE) Urine Urobilinogen (0.2) E.U./dL Ur Leukocyte Esterase (NEGATIVE) Urine RBC (0-5/HPF) Urine WBC (0-5/HPF) Urine Bacteria (None) Ur Culture Indicated? COVID-19 PCR (Not Detect) 03/05/20 03/05/20 03/05/20 Range/Units 15:23 17:10 17:10 WBC (4.5-11.0) X10^3/uL RBC (4.5-5.9) X10^6/uL Hgb (13.5-17.5) g/dL Hct (41-53) % MCV (80-100) fL MCH (26-34) PG MCHC (30-36) % RDW (11.6-14.8) % Plt Count (150-400) X10^3/uL Neut % (Auto) (50-75) % Lymph % (Auto) (25-40) % Mcdowell % (Auto) (3-14) % Eos % (Auto) (2-4) % Baso % (Auto) (0-2) % Neut # (Auto) (9468-2620) /uL Lymph # (Auto) (6951-4353) /uL Mcdowell # (Auto) (0-900) /uL Eos # (Auto) (0-450) /uL Baso # (Auto) (0-100) /uL Sodium (137-145) mmol/L Potassium (3.4-5.1) mmol/L Chloride (98-107) mmol/L Carbon Dioxide (22-32) mmol/L BUN (9-20) mg/dL Creatinine (0.66-1.25) mg/dL Estimated GFR (>60) mL/min BUN/Creatinine Ratio (6-22) Glucose (80-110) mg/dL Lactate 1.7 (0.7-2.1) mmol/L Calcium (8.4-10.2) mg/dL Total Bilirubin (0.2-1.3) mg/dL AST (17-59) IU/L ALT (<50) IU/L Alkaline Phosphatase (38-126) U/L Troponin I < 0.012 (0.01-0.034) ng/mL Total Protein (6.3-8.2) g/dL Albumin (3.5-5.0) g/dL Globulin (1.7-4.1) g/dL Albumin/Globulin Ratio (1.0-2.8) Procalcitonin (<0.5) ng/mL Urine Color Urine Appearance Urine pH (4.5-8.0) Ur Specific [place] (1.000-1.035) Urine Protein (Negative) Urine Glucose (UA) (Negative) g/dL Urine Ketones (NEGATIVE) Urine Occult Blood (Negative) Urine Nitrate (Negative) Urine Bilirubin (NEGATIVE) Urine Urobilinogen (0.2) E.U./dL Ur Leukocyte Esterase (NEGATIVE) Urine RBC (0-5/HPF) Urine WBC (0-5/HPF) Urine Bacteria (None) Ur Culture Indicated? COVID-19 PCR Not detected (Not Detect) 03/05/20 Range/Units 17:10 WBC (4.5-11.0) X10^3/uL RBC (4.5-5.9) X10^6/uL Hgb (13.5-17.5) g/dL Hct (41-53) % MCV (80-100) fL MCH (26-34) PG MCHC (30-36) % RDW (11.6-14.8) % Plt Count (150-400) X10^3/uL Neut % (Auto) (50-75) % Lymph % (Auto) (25-40) % Mcdowell % (Auto) (3-14) % Eos % (Auto) (2-4) % Baso % (Auto) (0-2) % Neut # (Auto) (5582-4246) /uL Lymph # (Auto) (5859-0657) /uL Mcdowell # (Auto) (0-900) /uL Eos # (Auto) (0-450) /uL Baso # (Auto) (0-100) /uL Sodium (137-145) mmol/L Potassium (3.4-5.1) mmol/L Chloride (98-107) mmol/L Carbon Dioxide (22-32) mmol/L BUN (9-20) mg/dL Creatinine (0.66-1.25) mg/dL Estimated GFR (>60) mL/min BUN/Creatinine Ratio (6-22) Glucose (80-110) mg/dL Lactate (0.7-2.1) mmol/L Calcium (8.4-10.2) mg/dL Total Bilirubin (0.2-1.3) mg/dL AST (17-59) IU/L ALT (<50) IU/L Alkaline Phosphatase (38-126) U/L Troponin I (0.01-0.034) ng/mL Total Protein (6.3-8.2) g/dL Albumin (3.5-5.0) g/dL Globulin (1.7-4.1) g/dL Albumin/Globulin Ratio (1.0-2.8) Procalcitonin (<0.5) ng/mL Urine Color Yellow Urine Appearance Clear Urine pH 5.5 (4.5-8.0) Ur Specific [place] 1.015 (1.000-1.035) Urine Protein Negative (Negative) Urine Glucose (UA) 2+ H (Negative) g/dL Urine Ketones Negative (NEGATIVE) Urine Occult Blood 1+ H (Negative) Urine Nitrate Negative (Negative) Urine Bilirubin Negative (NEGATIVE) Urine Urobilinogen 0.2 (0.2) E.U./dL Ur Leukocyte Esterase Negative (NEGATIVE) Urine RBC 1-5/hpf (0-5/HPF) Urine WBC 1-5/hpf (0-5/HPF) Urine Bacteria None seen (None) Ur Culture Indicated? Cult not indicated COVID-19 PCR (Not Detect) Point of Care Testing Glucose POC 292 Point of care testing: Point of Care Testing Glucose POC 292 Imaging Data Chest x-ray: Radiologist's Impression: Chart Viewer Diagnostics DATE TYPE STATUS AUTHOR Hx 03/05/20 15:18 Levon Monson 01/16/20 00:00 Prasanna Garcia 01/09/20 08:31 ChiaraSarah 01/02/20 17:42 Ranulfo Osorio 11/28/19 14:13 Basim Lopez 10/10/19 14:35 Bhavani Day 08/19/19 23:51 With Notes 08/19/19 23:14 Basim Lopez 12/14/18 11:55 Sarah Guadarrama 10/19/18 07:29 Levon Monson 07/03/18 11:09 Ranulfo Osorio William J 64, M1 DEP ER, [facility] 177.8cm 99.79kg BMI: 31.6kg/m? Weakness Search Chart No Data to Display pronounced vaso dilation ONSET 03/05/20 20:24 Jona Hernadez 64 M [address] [address] XRay Report Signed Patient: Jona Hernadez JMR#: [id number] : [id number]:[id number] Age/Sex: 64 / MDate of Service: 03/05/20 Loc: ED Accession Number: [id number] Procedure: XR chest 1V Ordering Provider: Frances Cruz MD PROCEDURE: XR CHEST 1V INDICATIONS: weakness TECHNIQUE: One view of the chest was acquired. COMPARISON: [facility], , XR CHEST 2V, 01/02/2020, 17:53. FINDINGS: Surgical changes and devices: None. Lungs and pleura: There is a small area of developing consolidation within the left lung base near the costophrenic angle. This is new since the prior study. No additional areas of definite pulmonary consolidation are evident. No effusion or pneumothorax is identified. Mediastinum: Mediastinal contours appear normal. Heart size is normal. There is aortic atherosclerosis. Bones and chest wall: No suspicious bony lesions. Overlying soft tissues appear unremarkable. IMPRESSION: Left lower lobe pneumonia versus atelectasis. Dictated by: Levon Monson M.D. on 03/05/2020 at 15:01 Approved by: Levon Monson M.D. on 03/05/2020 at 15:04 Discharge Plan Departure Patient Disposition: Home Clinical Impression: Pneumonia Qualifiers: Pneumonia type: due to unspecified organism Laterality: left Lung location: lower lobe of lung Qualified Code(s): J18.9 - Pneumonia, unspecified organism Discharge Date/Time: 03/05/20 20:25 Instructions: DI for Pneumonia -- Adult Activity Restrictions/Additional Instructions: *You have been diagnosed with [ pneumonia ] *What to do: *Take medications as directed: sent to [facility] *Follow up with your primary care provider in 2-3 days, call for an appointment. Let them know you were seen in the Emergency Department and that we ask that you be seen in follow up *Return to ER if you should have any new, worsening or concerning symptoms Prescriptions: New amoxicillin-pot clavulanate [Augmentin] 875-125 mg tablet 1 tab PO BID Qty: 20 RF: 0 No Action olanzapine 2.5 mg tablet 2.5 mg PO BEDTIME RF: 0 diphenhydramine HCl 50 mg capsule 50 mg PO BEDTIME RF: 0 atorvastatin 40 mg tablet 40 mg PO BEDTIME Qty: 90 RF: 1 amlodipine 5 mg tablet 2.5 mg PO QPM RF: 0 tamsulosin [Flomax] 0.4 mg capsule 0.4 mg PO DAILY RF: 0 promethazine 50 mg tablet 50 mg PO BEDTIME PRN (Reason: nausea) Qty: 30 RF: 5 omeprazole 20 mg capsule,delayed release(DR/EC) 20 mg PO DAILY Qty: 30 RF: 0 metoprolol succinate 50 mg tablet extended release 24 hr 75 mg PO BID RF: 0 Venclexta 100 mg tablet 200 mg PO DAILY RF: 0 Referrals: Michel Bran MD [Primary Care Provider] -
[2020-03-05 17:36] LABS: Lactate (Lactic Acid) 1.7 mmol/L (0.7-2.1)
[2020-03-05 19:27] LABS: Bacteria Urine None Seen
[2020-03-05 20:04] LABS: Appearance Urine UA CLEAR; Bilirubin Urine UA NEGATIVE (NEGATIVE); Color Urine UA YELLOW; Glucose Urine UA 2+ g/dL (Negative); Ketones Urine UA NEGATIVE (NEGATIVE); Leukocyte Esterase Urine UA NEGATIVE (NEGATIVE); Nitrite Urine UA NEGATIVE (Negative); Occult Blood Urine UA 1+ (Negative); Protein Urine UA NEGATIVE (Negative); Specific Gravity Urine UA 1.015 (1.000-1.035); Urobilinogen Urine UA 0.2 E.U./dL (0.2); pH Urine UA 5.5 (4.5-8.0)
[2020-03-05 20:19] LABS: Culture Indicated Urine Cult Not Indicated; RBC Urine 1-5/HPF (0-5/HPF); WBC Urine 1-5/HPF (0-5/HPF)
[2020-03-05 20:24] VITALS: BP 118/80; PULSE 86; RESP 16; O2SAT 97
[2020-03-06 01:17] LABS: COVID19 Sendout Not Detected (Not Detect)
[2020-03-09 10:42] LABS: Hemoglobin A1C% w Est Avg Glu 8.4 % (4.0-6.0)
== END 2020-03-05 20:25 | disposition home or self-care (01) ==
PROVIDERS: Emergency Medicine; Emergency Provider Emergency Medicine; PCP Student in an Organized Health Care Education/Training Program
DX: J18.9 Pneumonia, unspecified organism (principal)
CPT/HCPCS: 36415; 71045; 80053; 81001; 82962; 83036; 83605; 84145; 84484; 85025; 87040; 87635; 93005; 96360; 96361; 99284

== ENCOUNTER → 2020-07-12 13:45 | Outpatient (CLI) | payer MEDICARE, OTHER, SELFPAY ==
[2020-07-12 14:22] LABS: Hemoglobin A1C% w Est Avg Glu 5.9 % (4.0-6.0)
[2020-07-12 14:39] LABS: Alanine Aminotransferase 109 IU/L (<50); Albumin 4.3 g/dL (3.5-5.0); Albumin Globulin Ratio 1.7 (1.0-2.8); Alkaline Phosphatase 77 U/L (38-126); Aspartate Aminotransferase 66 IU/L (17-59); Bilirubin Total 0.5 mg/dL (0.2-1.3); Bilirubin Unconjugated 0.4 mg/dL (0.0-1.1); Globulin 2.5 g/dL (1.7-4.1); HEMOLYSIS < 15 (0-50); Total Protein 6.8 g/dL (6.3-8.2)
== END ==
PROVIDERS: PCP Student in an Organized Health Care Education/Training Program; Referring Provider Student in an Organized Health Care Education/Training Program; Visit Provider Student in an Organized Health Care Education/Training Program
DX: C91.90 Lymphoid leukemia, unspecified not having achieved remission (principal); R74.8 Abnormal levels of other serum enzymes; R73.9 Hyperglycemia, unspecified
CPT/HCPCS: 36415; 80076; 83036

== ENCOUNTER → 2020-08-15 09:52 | Outpatient (CLI) | payer MEDICARE, OTHER, SELFPAY ==
[2020-08-15 11:41] LABS: Cholesterol 227 mg/dL (140-199); HDL Cholesterol 29 mg/dL (40-60); Triglycerides 423 mg/dL (35-150)
== END ==
PROVIDERS: PCP Student in an Organized Health Care Education/Training Program; Referring Provider Internal Medicine Cardiovascular Disease; Visit Provider Internal Medicine Cardiovascular Disease
DX: I10 Essential (primary) hypertension (principal)
CPT/HCPCS: 36415; 80061

== ENCOUNTER → 2020-09-07 08:58 | Outpatient (CLI) | payer MEDICARE, OTHER, SELFPAY ==
--- NOTE | 2020-09-07 08:59 | DI.US.S_ITS ---
PROCEDURE: US ABDOMEN LIMITED INDICATIONS: ELEVATED LIVER ENZYMES TECHNIQUE: Real-time focused scanning was performed of the abdomen, with image documentation. COMPARISON: Outside Facility, RG, CT CHEST/ABD/PEL W/CONTRAST, 08/20/2015, 17:36. [facility], US, US ABD AORTA ANEURYSM SCREEN, 10/19/2018, 8:10. FINDINGS: The liver measures approximately 15 cm on these images. The liver demonstrates generalized increased echogenicity. This decreases ultrasound sensitivity for detection of hepatic masses. A relative hypoechoic area without abnormal vascularity is seen adjacent to the gallbladder that measures 15 x 13 x 11 mm. Multiple small foci are seen adherent to the wall of the gallbladder. No shadowing gallstones are seen. The gallbladder wall is thickened, measuring up to 1 cm. No specific pericholecystic fluid is seen. The sonographic Michaud sign is negative. There is no biliary dilatation, the common bile duct measures 4 mm. The pancreas is not well seen. No free fluid is seen. Along the anterior aspect of the right kidney, there is an anechoic cyst, with a nonvascular septation that measures 10.8 x 10 x 8.2 cm. Along the lateral/mid right kidney, there is a peripelvic cyst with internal debris that measures 2.2 x 2.3 x 1.4 cm. IMPRESSION: Likely fatty liver, with fatty sparing adjacent to the gallbladder. Abnormal gallbladder, with apparent adherent sludge and a thickened gallbladder wall. No gallstones are seen. No additional sonographic signs of cholecystitis are seen. No biliary dilatation. Incidental note is made of right renal cysts, including a 10.8 cm septated cyst seen anteriorly. Dictated by: Basim Lopez M.D. on 09/07/2020 at 11:16 Approved by: Basim Lopez M.D. on 09/07/2020 at 11:22
== END ==
PROVIDERS: PCP Student in an Organized Health Care Education/Training Program; Referring Provider Student in an Organized Health Care Education/Training Program; Visit Provider Student in an Organized Health Care Education/Training Program
DX: R74.8 Abnormal levels of other serum enzymes (principal); K82.9 Disease of gallbladder, unspecified; N28.1 Cyst of kidney, acquired
CPT/HCPCS: 76705

== ENCOUNTER → 2020-09-28 14:28 | Outpatient (CLI) | payer MEDICARE, OTHER, SELFPAY ==
[2020-09-28 14:53] LABS: Add Manual Diff / Slide Review NO; Basophils Absolute Auto 0 /uL (0-100); Basophils Percent Auto 0.5 % (0-2); Eosinophils Absolute Auto 0 /uL (0-450); Eosinophils Percent Auto 0.7 % (2-4); Hematocrit 45.1 % (41-53); Hemoglobin 15.8 g/dL (13.5-17.5); Lymphocytes Absolute Auto 2000 /uL (1100-4500); Lymphocytes Percent Auto 32.9 % (25-40); Mean Corpuscular Hemoglobin 31.7 PG (26-34); Mean Corpuscular Volume 90.8 fL (80-100); Monocytes Absolute Auto 1500 /uL (0-900); Monocytes Percent Auto 24.3 % (3-14); Neutrophils Absolute Auto 2500 /uL (1500-7000); Neutrophils Percent Auto 41.6 % (50-75); Platelet Count 139 X10^3/uL (150-400); Red Blood Cell Count 4.96 X10^6/uL (4.5-5.9); Red Cell Distribution Width 14.9 % (11.6-14.8)
[2020-09-28 15:04] LABS: Hemoglobin A1C% w Est Avg Glu 6.1 % (4.0-6.0)
[2020-09-28 15:07] LABS: Erythrocyte Sedimentation Rate 5 MM/HR (0-15)
[2020-09-28 15:14] LABS: BUN Creatinine Ratio 16.3 (6-22); Blood Urea Nitrogen 24 mg/dL (9-20); C-Reactive Protein Quant 0.6 mg/dL (<1.0); Estimated Glomerular Filt Rate 47.8 mL/min (>60)
[2020-09-28 15:41] LABS: Prostate Specific Antigen Scrn 0.927 ng/mL (0.1-4.0); TSH w/ Reflex to FT4 3.45 uIU/mL (0.47-4.68)
[2020-09-28 15:59] LABS: Vitamin B12 555 pg/mL (239-931)
== END ==
PROVIDERS: PCP Student in an Organized Health Care Education/Training Program; Referring Provider Student in an Organized Health Care Education/Training Program; Visit Provider Student in an Organized Health Care Education/Training Program
DX: C91.90 Lymphoid leukemia, unspecified not having achieved remission (principal); R73.9 Hyperglycemia, unspecified; Z12.5 Encounter for screening for malignant neoplasm of prostate; R53.83 Other fatigue; G47.10 Hypersomnia, unspecified; R11.0 Nausea; N14.1 Nephropathy induced by other drugs, medicaments and biological substances; T50.8X5A Adverse effect of diagnostic agents, initial encounter
CPT/HCPCS: 36415; 82565; 82607; 83036; 84443; 84520; 85025; 85651; 86140; G0103

== ENCOUNTER → 2020-10-02 12:35 | Outpatient (CLI) | payer MEDICARE, OTHER, SELFPAY ==
--- NOTE | 2020-10-02 12:37 | DI.CT.S_ITS ---
PROCEDURE: CT HEAD/BRAIN WO/W CON INDICATIONS: Dysequilibrium, hypersomnia, h/o CLL TECHNIQUE: 4.5 mm thick angled axial sections acquired from the foramen magnum to the vertex before and after the administration of intravenous contrast, with coronal and sagittal reformats. For radiation dose reduction, the following was used: automated exposure control, adjustment of mA and/or kV according to patient size. COMPARISON: None. FINDINGS: Image quality: Excellent. CSF Spaces: Basal cisterns are patent. No extra-axial fluid collections. Ventricles are normal in size and shape. Brain: No midline shift. No intracranial bleeds or masses. No abnormal intracranial enhancement. Bahena-white interface appears normal. Skull and face: Calvarium and visualized facial bones appear intact, without suspicious lesions. Sinuses: Visualized sinuses and mastoids are clear. IMPRESSION: Normal for age, no evidence of mass lesion or abnormal enhancement. Source of current symptoms is not seen. Dictated by: Ranulfo Osorio M.D. on 10/02/2020 at 13:33 Approved by: Ranulfo Osorio M.D. on 10/02/2020 at 13:34
== END ==
PROVIDERS: PCP Student in an Organized Health Care Education/Training Program; Referring Provider Student in an Organized Health Care Education/Training Program; Visit Provider Student in an Organized Health Care Education/Training Program
DX: C91.90 Lymphoid leukemia, unspecified not having achieved remission (principal); R42 Dizziness and giddiness
CPT/HCPCS: 70470; Q9967

== ENCOUNTER → 2020-10-19 12:04 | Outpatient (CLI) | payer MEDICARE, OTHER, SELFPAY ==
[2020-10-19 13:05] LABS: Hematocrit 41.9 % (41-53); Mean Corpuscular HGB Conc 35.7 % (30-36); Mean Corpuscular Hemoglobin 32.3 PG (26-34); Mean Corpuscular Volume 90.4 fL (80-100); Platelet Count 119 X10^3/uL (150-400); Red Blood Cell Count 4.64 X10^6/uL (4.5-5.9); Red Cell Distribution Width 14.8 % (11.6-14.8)
[2020-10-19 13:24] LABS: BUN Creatinine Ratio 13.7 (6-22); Blood Urea Nitrogen 17 mg/dL (9-20); Calcium 8.9 mg/dL (8.4-10.2); Carbon Dioxide 29 mmol/L (22-32); Chloride 102 mmol/L (98-107); Estimated Glomerular Filt Rate 58.1 mL/min (>60); Glucose 213 mg/dL (80-110); HEMOLYSIS < 15 (0-50); Sodium 138 mmol/L (137-145)
[2020-10-19 13:34] LABS: Neutrophils Absolute Manual 2940 /uL (3000-5900); Total Cells Counted 100
[2020-10-19 13:35] LABS: Anisocytosis 1+
== END ==
PROVIDERS: PCP Student in an Organized Health Care Education/Training Program; Referring Provider Student in an Organized Health Care Education/Training Program; Visit Provider Student in an Organized Health Care Education/Training Program
DX: C91.90 Lymphoid leukemia, unspecified not having achieved remission (principal); N17.9 Acute kidney failure, unspecified; R11.0 Nausea
CPT/HCPCS: 36415; 80048; 85025

== ENCOUNTER 2020-11-15 17:57 | Emergency (ER) | payer MEDICARE, OTHER, SELFPAY ==
[2020-11-15] VITALS (14 sets, daily range): BP systolic 133–172; BP diastolic 81–106; PULSE 86–103; RESP 20–35; TEMP 38.6; O2SAT 94–98; BMI 32.3
--- NOTE | 2020-11-15 18:04 | DI.CT.S_ITS ---
PROCEDURE: CT HEAD/BRAIN WO CON INDICATIONS: altered, trouble with speech TECHNIQUE: Noncontrast 4.5 mm thick angled axial sections acquired from the foramen magnum to the vertex, with coronal and sagittal reformats. For radiation dose reduction, the following was used: automated exposure control, adjustment of mA and/or kV according to patient size. COMPARISON: [facility], CT, CT HEAD/BRAIN WO/W CON, 10/02/2020, 12:58. FINDINGS: Image quality: Excellent. CSF spaces: Basal cisterns are patent. No extra-axial fluid collections. The ventricles are symmetric in size and shape. Brain: No intracranial bleeds or masses. There is cerebral volume loss for age, with resultant ventricular and sulcal prominence. There are periventricular and deep white matter chronic small vessel ischemic changes. There is intracranial internal carotid artery atherosclerosis. Skull and face: Calvarium and visualized facial bones appear intact, without suspicious lesions. Sinuses: Visualized sinuses and mastoids are clear. IMPRESSION: No acute intracranial abnormality. Dictated by: Sommer Mcdonough M.D. on 11/15/2020 at 18:26 Approved by: Sommer Mcdonough M.D. on 11/15/2020 at 18:27
[2020-11-15 18:32] LABS: INR 1.1 (0.9-1.3)
[2020-11-15 18:34] LABS: Add Manual Diff / Slide Review NO; Basophils Absolute Auto 0 /uL (0-100); Basophils Percent Auto 0.3 % (0-2); Eosinophils Absolute Auto 0 /uL (0-450); Eosinophils Percent Auto 0.5 % (2-4); Hematocrit 45.2 % (41-53); Hemoglobin 16.3 g/dL (13.5-17.5); Lymphocytes Absolute Auto 2800 /uL (1100-4500); Lymphocytes Percent Auto 26.5 % (25-40); Mean Corpuscular HGB Conc 36.1 % (30-36); Mean Corpuscular Hemoglobin 33.2 PG (26-34); Mean Corpuscular Volume 92.1 fL (80-100); Monocytes Absolute Auto 1700 /uL (0-900); Monocytes Percent Auto 15.8 % (3-14); Neutrophils Absolute Auto 6000 /uL (1500-7000); Neutrophils Percent Auto 56.9 % (50-75); Platelet Count 133 X10^3/uL (150-400); Red Blood Cell Count 4.91 X10^6/uL (4.5-5.9); Red Cell Distribution Width 14.6 % (11.6-14.8); White Blood Cell Count 10.6 X10^3/uL (4.5-11.0)
[2020-11-15 18:38] LABS: Alanine Aminotransferase 747 IU/L (<50); Albumin 4.6 g/dL (3.5-5.0); Albumin Globulin Ratio 1.3 (1.0-2.8); Alkaline Phosphatase 223 U/L (38-126); Aspartate Aminotransferase 387 IU/L (17-59); BUN Creatinine Ratio 11.8 (6-22); Bilirubin Total 4.3 mg/dL (0.2-1.3); Blood Urea Nitrogen 15 mg/dL (9-20); Calcium 9.3 mg/dL (8.4-10.2); Carbon Dioxide 27 mmol/L (22-32); Chloride 102 mmol/L (98-107); Creatine Kinase 61 U/L (55-170); Estimated Glomerular Filt Rate 56.6 mL/min (>60); Globulin 3.5 g/dL (1.7-4.1); Glucose 177 mg/dL (80-110); HEMOLYSIS < 15 (0-50); Potassium 3.7 mmol/L (3.4-5.1); Sodium 141 mmol/L (137-145); Total Protein 8.1 g/dL (6.3-8.2)
[2020-11-15 18:41] LABS: C-Reactive Protein Quant 5.7 mg/dL (<1.0)
[2020-11-15 18:47] LABS: Influenza A - CEPHEID Flu A NEGATIVE (NEGATIVE); Influenza B - CEPHEID Flu B NEGATIVE (NEGATIVE)
[2020-11-15 18:50] LABS: NT-proBNP (BNP-Adult 18+) 1440 pg/mL (<125); Troponin I < 0.012 ng/mL (0.01-0.034)
--- NOTE | 2020-11-15 19:07 | ED_ITS ---
HPI - Neuro Symptoms/Deficit General Chief Complaint: Neuro Symptoms/Deficit Stated Complaint: Neuro Changes Time Seen by Provider: 11/15/20 17:59 Source: EMS Mode of arrival: EMS Limitations: no limitations History of Present Illness HPI Narrative: 65-year-old male history of GERD, hypertension, hyperlipidemia,and Leukemia (in remission since ) presents with profound generalized weakness and nausea for the past few days. He has generalized abdominal pain which seems to be worse in the RUQ. He denies provocation/palliation/radiation of this pain. He states it is there more often than not and is achy in nature, 5/10 in severity. He has seen his PCP and had complaints of dizziness and nausea for about two months. He stopped his Venclexta at that time and symptoms have not improved. He's had chills, but denies fever. He's had no runny nose, sneezing, cough, or shortness of breath. He's had no focal findings, blurred, vision, or trouble with speech. He was seen at the [facility] in August and had labs noting elevated LFTs, he had a subsequent US which noted some thickening of his GB, but no stones. Up until two days ago he was ambulatory with 1 person assist and a cane. Onset (ago): day(s) Timing confirmed by: spouse On Anticoagulants: No Related Data Home Medications Medication Instructions Recorded Confirmed tamsulosin 0.4 mg capsule 0.4 mg PO DAILY 12/22/19 10/24/20 atorvastatin 40 mg tablet 40 mg PO DAILY 08/31/20 10/24/20 metoprolol succinate 50 mg 50 mg PO BID tab 09/28/20 10/24/20 tablet,extended release 24 hr promethazine 25 mg tablet 25 mg PO TID PRN 09/28/20 10/24/20 Previous Rx's Medication Instructions Recorded omeprazole 20 mg capsule,delayed 20 mg PO DAILY #30 cap 12/22/19 release sertraline 100 mg tablet 100 mg PO DAILY #90 tab 09/28/20 Allergies Allergy/AdvReac Type Severity Reaction Status Date / Time OFATUMUMAB Allergy Unknown pronounced Uncoded 10/24/20 11:16 vaso dilation Review of Systems Constitutional Constitutional: Denies chills, Denies fatigue, Denies fever(s), Denies frequent falls, Denies lethargy and Reports weakness Eyes Eyes: Denies change in vision, Denies eye discharge, Denies irritation and Denies loss of vision ENT Ears, Nose, Mouth, and Throat: Denies change in voice, Reports dizziness, Denies neck pain, Denies sore throat and Denies throat swelling Cardiovascular Cardiovascular: Denies chest pain, Denies irregular heart rhythm, Denies lightheadedness, Denies palpitations, Denies dyspnea, Denies dyspnea on exertion and Denies orthopnea Respiratory Respiratory: Denies cough, Denies dyspnea, Denies dyspnea on exertion and Denies wheezing Gastrointestinal Gastrointestinal: Reports abdominal pain, Denies change in bowel habits, Denies diarrhea, Reports nausea and Denies vomiting Musculoskeletal Musculoskeletal: Denies neck pain and Denies numbness Integumentary/Breasts Skin/Breast: Denies pruritus, Denies erythema, Denies rash and Denies wounds Neurologic Neurologic: Denies behavioral changes, Denies confusion, Reports dizziness, Denies frequent falls, Denies loss of vision, Denies numbness and Reports weakness Psychiatric Psychiatric: Denies anxiety, Denies behavioral changes, Denies confusion, Denies depression, Denies homicidal ideation and Denies suicidal ideation Endocrine Endocrine: Denies fatigue, Denies flushing and Denies palpitations Hematologic/Lymphatic Hematologic/Lymphatic: Denies easy bruising On Anticoagulants: No Allergic/Immunologic Allergic/Immunologic: Denies urticaria, Denies throat swelling and Denies wheezing Patient History Medical History Abnormal liver enzymes BPH (benign prostatic hyperplasia) Cardiomyopathy History of gross hematuria Hyperglycemia Hypertension Leukemia Surgical History History of allogeneic stem cell transplant No pertinent past surgical history S/P TURP Family History Other No pertinent family history Social History Smoking Status: Former smoker Smoking Status: Former smoker alcohol intake frequency: 0-2 drinks per day Substance Use Type: does not use Exam Narrative Exam Narrative: GENERAL: [65] year old patient appears stated age. Well- nourished, well-developed patient, in mild distress. HEAD: Atraumatic. Normocephalic. EYES: Pupils equal round and reactive. Extraocular motions intact. ENT: Dry mucous membranes, no pharyngeal erythema or petechiae. Tympanic membranes peguero bilaterally with normal landmarks NECK: Trachea midline. Non tender CARDIOVASCULAR: Regular rate and rhythm without murmurs, gallops, or rubs. RESPIRATORY: Clear to auscultation. Breath sounds equal bilaterally. No wheezes, rales, or rhonchi. GASTROINTESTINAL: Abdomen soft, tender in epigastrium and right upper quadrant, nondistended. EXTREMITIES: No edema or joint tenderness. BACK: Nontender without deformity or crepitance. No flank tenderness. NEURO: AOx3. SKIN: No rash or erythema of visible areas Initial Vital Signs Initial Vital Signs: Vital Signs Temperature 101.4 F H 11/15/20 18:03 Pulse Rate 103 H 11/15/20 18:03 Respiratory Rate 20 11/15/20 18:03 Blood Pressure 172/90 H 11/15/20 18:03 Pulse Oximetry 98 11/15/20 18:03 Course Course Course Narrative: patient notably weak. He cannot get to bathroom even with assistance and cannot participate in orthostatics. Orders Ordered: ED Orders 11/15/20 18:35 Blood Culture Stat Lactate (Lactic Acid) Stat 11/15/20 20:59 XR chest 1V Stat 11/15/20 21:11 Ictotest Urine Stat Urinalysis and Microscopic Stat 11/15/20 22:13 US abdomen limited Stat Discontinued Medications Levofloxacin (Levaquin) 750 mg in 150 mls @ 100 mls/hr IV NOW ONE Stop: 11/15/20 22:28 Last Infusion: 11/15/20 22:59 Dose: 0 mls/hr Documented by: Admin: 11/15/20 21:16 Dose: 100 mls/hr Documented by: JUSTINO Lactated Ringer's (Lactated Ringers) 1,000 mls @ 1,000 mls/hr IV BOLUS ONE Stop: 11/15/20 22:05 Last Infusion: 11/15/20 22:59 Dose: 0 mls/hr Documented by: Admin: 11/15/20 21:16 Dose: 1,000 mls/hr Documented by: JUSTINO Consultations Consultation #1: call to senior contracts administrator surgery, given presentation and labs he will need an ERCP. Recommends transfer Consultation #2: call to [facility] ([place]) they cannot do an ERCP if needed for this hospitalization, given story, labs, imaging he recommends [phone] - call to [facility] (no beds). On list [phone] - call to [facility] (no beds). On list [phone] - Wes TOSCANO [place] happy to see, but requests we call hospitalist [phone] - discussed with Dr. Hillman ([place] Hospitalist) happy to accept Vital Signs Vital signs: Vital Signs - 8 hr 11/15/20 19:30 11/15/20 19:50 11/15/20 20:00 Pulse Rate 88 87 87 Respiratory Rate 28 H 34 H 33 H Blood Pressure 139/98 H 133/94 H Pulse Oximetry 98 97 96 11/15/20 20:30 11/15/20 20:43 11/15/20 21:00 Pulse Rate 86 88 86 Respiratory Rate 24 22 24 Blood Pressure 141/85 H 134/83 Pulse Oximetry 97 96 96 11/15/20 21:30 11/15/20 22:00 11/15/20 22:30 Pulse Rate 89 89 89 Respiratory Rate 22 24 20 Blood Pressure 151/82 H 168/81 H Pulse Oximetry 95 97 96 11/15/20 23:00 11/15/20 23:30 11/16/20 00:00 Pulse Rate 86 86 87 Respiratory Rate 32 H 35 H 34 H Blood Pressure 156/81 H 163/81 H 173/74 H Pulse Oximetry 96 97 96 11/16/20 00:30 11/16/20 00:31 11/16/20 01:00 Pulse Rate 86 85 82 Respiratory Rate 37 H 37 H 24 Blood Pressure 151/78 H 164/86 H Pulse Oximetry 96 96 96 11/16/20 01:30 11/16/20 01:31 11/16/20 02:00 Pulse Rate 86 87 90 Respiratory Rate 42 H 31 H 43 H Blood Pressure 162/91 H 164/79 H Pulse Oximetry 94 95 11/16/20 02:30 11/16/20 03:00 11/16/20 03:11 Pulse Rate 96 H 84 85 Respiratory Rate 24 21 Blood Pressure 188/96 H 172/88 H 164/80 H Pulse Oximetry 96 95 96 MDM - Neuro Symptoms/Deficit Lab Data Result diagrams: 11/15/20 18:00 11/15/20 18:00 Labs: Lab Results 11/15/20 11/15/20 11/15/20 Range/Units 18:00 18:00 18:00 WBC 10.6 (4.5-11.0) X10^3/uL RBC 4.91 (4.5-5.9) X10^6/uL Hgb 16.3 (13.5-17.5) g/dL Hct 45.2 (41-53) % MCV 92.1 (80-100) fL MCH 33.2 (26-34) PG MCHC 36.1 H (30-36) % RDW 14.6 (11.6-14.8) % Plt Count 133 L (150-400) X10^3/uL Neut % (Auto) 56.9 (50-75) % Lymph % (Auto) 26.5 (25-40) % [place] % (Auto) 15.8 H (3-14) % Eos % (Auto) 0.5 L (2-4) % Baso % (Auto) 0.3 (0-2) % Neut # (Auto) 6000 (3832-4462) /uL Lymph # (Auto) 2800 (3068-3073) /uL [place] # (Auto) 1700 H (0-900) /uL Eos # (Auto) 0 (0-450) /uL Baso # (Auto) 0 (0-100) /uL PT 13.0 H (10.1-12.7) SECONDS INR 1.1 (0.9-1.3) Sodium (137-145) mmol/L Potassium (3.4-5.1) mmol/L Chloride (98-107) mmol/L Carbon Dioxide (22-32) mmol/L BUN (9-20) mg/dL Creatinine (0.66-1.25) mg/dL Estimated GFR (>60) mL/min BUN/Creatinine Ratio (6-22) Glucose (80-110) mg/dL Lactate (0.7-2.1) mmol/L Calcium (8.4-10.2) mg/dL Ferritin (18-464) ng/mL Total Bilirubin (0.2-1.3) mg/dL AST (17-59) IU/L ALT (<50) IU/L Alkaline Phosphatase (38-126) U/L Total Creatine Kinase (55-170) U/L CK-MB (CK-2) CK-MB (CK-2) Rel Index Troponin I (0.01-0.034) ng/mL C-Reactive Protein 5.7 H (<1.0) mg/dL NT-Pro-B Natriuret Pep (<125) pg/mL Total Protein (6.3-8.2) g/dL Albumin (3.5-5.0) g/dL Globulin (1.7-4.1) g/dL Albumin/Globulin Ratio (1.0-2.8) Urine Color Urine Appearance Urine pH (4.5-8.0) Ur Specific [place] (1.000-1.035) Urine Protein (Negative) Urine Glucose (UA) (Negative) g/dL Urine Ketones (NEGATIVE) Urine Occult Blood (Negative) Urine Nitrate (Negative) Urine Bilirubin (NEGATIVE) Ur Bilirubin Confirm (Negative) Urine Urobilinogen (0.2) E.U./dL Ur Leukocyte Esterase (NEGATIVE) Urine RBC (0-5/HPF) Urine WBC (0-5/HPF) Ur Squamous Epith Cells (0-5/HPF) Urine Bacteria (None) Hyaline Casts (None) Urine Mucus (Negative) Ur Culture Indicated? SARS-CoV-2 (PCR) (Negative) Influenza A (RT-PCR) (NEGATIVE) Influenza B (RT-PCR) (NEGATIVE) 11/15/20 11/15/20 11/15/20 Range/Units 18:00 18:02 18:02 WBC (4.5-11.0) X10^3/uL RBC (4.5-5.9) X10^6/uL Hgb (13.5-17.5) g/dL Hct (41-53) % MCV (80-100) fL MCH (26-34) PG MCHC (30-36) % RDW (11.6-14.8) % Plt Count (150-400) X10^3/uL Neut % (Auto) (50-75) % Lymph % (Auto) (25-40) % [place] % (Auto) (3-14) % Eos % (Auto) (2-4) % Baso % (Auto) (0-2) % Neut # (Auto) (2557-7082) /uL Lymph # (Auto) (3928-5798) /uL [place] # (Auto) (0-900) /uL Eos # (Auto) (0-450) /uL Baso # (Auto) (0-100) /uL PT (10.1-12.7) SECONDS INR (0.9-1.3) Sodium 141 (137-145) mmol/L Potassium 3.7 (3.4-5.1) mmol/L Chloride 102 (98-107) mmol/L Carbon Dioxide 27 (22-32) mmol/L BUN 15 (9-20) mg/dL Creatinine 1.27 H (0.66-1.25) mg/dL Estimated GFR 56.6 L (>60) mL/min BUN/Creatinine Ratio 11.8 (6-22) Glucose 177 H (80-110) mg/dL Lactate (0.7-2.1) mmol/L Calcium 9.3 (8.4-10.2) mg/dL Ferritin 578 H (18-464) ng/mL Total Bilirubin 4.3 H (0.2-1.3) mg/dL AST 387 H (17-59) IU/L ALT 747 H (<50) IU/L Alkaline Phosphatase 223 H (38-126) U/L Total Creatine Kinase 61 (55-170) U/L CK-MB (CK-2) TNP CK-MB (CK-2) Rel Index TNP Troponin I < 0.012 (0.01-0.034) ng/mL C-Reactive Protein (<1.0) mg/dL NT-Pro-B Natriuret Pep 1440 H (<125) pg/mL Total Protein 8.1 (6.3-8.2) g/dL Albumin 4.6 (3.5-5.0) g/dL Globulin 3.5 (1.7-4.1) g/dL Albumin/Globulin Ratio 1.3 (1.0-2.8) Urine Color Urine Appearance Urine pH (4.5-8.0) Ur Specific [place] (1.000-1.035) Urine Protein (Negative) Urine Glucose (UA) (Negative) g/dL Urine Ketones (NEGATIVE) Urine Occult Blood (Negative) Urine Nitrate (Negative) Urine Bilirubin (NEGATIVE) Ur Bilirubin Confirm (Negative) Urine Urobilinogen (0.2) E.U./dL Ur Leukocyte Esterase (NEGATIVE) Urine RBC (0-5/HPF) Urine WBC (0-5/HPF) Ur Squamous Epith Cells (0-5/HPF) Urine Bacteria (None) Hyaline Casts (None) Urine Mucus (Negative) Ur Culture Indicated? SARS-CoV-2 (PCR) Negative (Negative) Influenza A (RT-PCR) Flu a negative (NEGATIVE) Influenza B (RT-PCR) Flu b negative (NEGATIVE) 11/15/20 11/15/20 11/15/20 Range/Units 18:35 21:11 21:20 WBC (4.5-11.0) X10^3/uL RBC (4.5-5.9) X10^6/uL Hgb (13.5-17.5) g/dL Hct (41-53) % MCV (80-100) fL MCH (26-34) PG MCHC (30-36) % RDW (11.6-14.8) % Plt Count (150-400) X10^3/uL Neut % (Auto) (50-75) % Lymph % (Auto) (25-40) % [place] % (Auto) (3-14) % Eos % (Auto) (2-4) % Baso % (Auto) (0-2) % Neut # (Auto) (8394-0250) /uL Lymph # (Auto) (1293-7674) /uL [place] # (Auto) (0-900) /uL Eos # (Auto) (0-450) /uL Baso # (Auto) (0-100) /uL PT (10.1-12.7) SECONDS INR (0.9-1.3) Sodium (137-145) mmol/L Potassium (3.4-5.1) mmol/L Chloride (98-107) mmol/L Carbon Dioxide (22-32) mmol/L BUN (9-20) mg/dL Creatinine (0.66-1.25) mg/dL Estimated GFR (>60) mL/min BUN/Creatinine Ratio (6-22) Glucose (80-110) mg/dL Lactate 2.3 H 1.7 (0.7-2.1) mmol/L Calcium (8.4-10.2) mg/dL Ferritin (18-464) ng/mL Total Bilirubin (0.2-1.3) mg/dL AST (17-59) IU/L ALT (<50) IU/L Alkaline Phosphatase (38-126) U/L Total Creatine Kinase (55-170) U/L CK-MB (CK-2) CK-MB (CK-2) Rel Index Troponin I (0.01-0.034) ng/mL C-Reactive Protein (<1.0) mg/dL NT-Pro-B Natriuret Pep (<125) pg/mL Total Protein (6.3-8.2) g/dL Albumin (3.5-5.0) g/dL Globulin (1.7-4.1) g/dL Albumin/Globulin Ratio (1.0-2.8) Urine Color Dark yellow Urine Appearance Clear Urine pH 6.5 (4.5-8.0) Ur Specific [place] 1.015 (1.000-1.035) Urine Protein 2+ H (Negative) Urine Glucose (UA) Negative (Negative) g/dL Urine Ketones Trace H (NEGATIVE) Urine Occult Blood 3+ H (Negative) Urine Nitrate Negative (Negative) Urine Bilirubin 1+ H (NEGATIVE) Ur Bilirubin Confirm Positive H (Negative) Urine Urobilinogen 0.2 (0.2) E.U./dL Ur Leukocyte Esterase Negative (NEGATIVE) Urine RBC 1-5/hpf (0-5/HPF) Urine WBC 0-1/hpf (0-5/HPF) Ur Squamous Epith Cells 0-1 /hpf (0-5/HPF) Urine Bacteria Occasional (0-1) (None) Hyaline Casts 0-1/lpf (None) Urine Mucus 2+ H (Negative) Ur Culture Indicated? Cult not indicated SARS-CoV-2 (PCR) (Negative) Influenza A (RT-PCR) (NEGATIVE) Influenza B (RT-PCR) (NEGATIVE) Urine Dip Bedside Urine Glucose Negative Bedside Urine Bilirubin + 1 Bedside Urine Ketone - Negative Urine Specific [place] 1.020 Bedside Urine Occult Blood +++ Bedside Urine pH 6.0 Bedside Urine Protein ++ 100 Bedside Urine Urobilinogen +/- 1mg Bedside Urine Nitrite - Negative Bedside Urine Leukocytes - Negative Esterase Imaging Data CT scan - head: Radiologist's Impression: [address] [id number] Scan ReportSigned Patient: Jona Hernadez DEBORAHR#: [id number]: [id number]:[id number]/Sex: 65 / MDate of Service: 11/15/20Loc: EDAccession Number: [id number] Procedure: CT head/brain wo con Ordering Provider: Santos Durham D.O. PROCEDURE: CT HEAD/BRAIN WO CON INDICATIONS: altered, trouble with speech TECHNIQUE: Noncontrast 4.5 mm thick angled axial sections acquired from the foramen magnum to the vertex, with coronal and sagittal reformats. For radiation dose reduction, the following was used: automated exposure control, adjustment of mA and/or kV according to patient size. COMPARISON: [facility], CT, CT HEAD/BRAIN WO/W CON, 10/02/2020, 12:58. FINDINGS: Image quality: Excellent. CSF spaces: Basal cisterns are patent. No extra-axial fluid collections. The ventricles are symmetric in size and shape. Brain: No intracranial bleeds or masses. There is cerebral volume loss for age, with resultant ventricular and sulcal prominence. There are periventricular and deep white matter chronic small vessel ischemic changes. There is intracranial internal carotid artery atherosclerosis. Skull and face: Calvarium and visualized facial bones appear intact, without suspicious lesions. Sinuses: Visualized sinuses and mastoids are clear. IMPRESSION: No acute intracranial abnormality. Dictated by: Sommer Mcdonough M.D. on 11/15/2020 at 18:26 Approved by: Sommer Mcdonough M.D. on 11/15/2020 at 18:27 Discharge Plan Departure Patient Disposition: [facility] Clinical Impression: Choledocholithiasis Prescriptions: No Action atorvastatin 40 mg tablet 40 mg PO DAILY RF: 0 tamsulosin [Flomax] 0.4 mg capsule 0.4 mg PO DAILY RF: 0 omeprazole 20 mg capsule,delayed release(DR/EC) 20 mg PO DAILY Qty: 30 RF: 0 promethazine 25 mg tablet 25 mg PO TID PRNRF: 0 sertraline 100 mg tablet 100 mg PO DAILY Qty: 90 RF: 3 metoprolol succinate 50 mg tablet extended release 24 hr 50 mg PO BID RF: 0 Referrals: Michel Bran MD [Primary Care Provider] -
[2020-11-15 19:12] LABS: Lactate (Lactic Acid) 2.3 mmol/L (0.7-2.1)
[2020-11-15 19:13] LABS: Ferritin 578 ng/mL (18-464)
[2020-11-15 19:19] LABS: COVID19 -Nasal RAPID Negative (Negative)
--- NOTE | 2020-11-15 20:59 | DI.RAD.S_ITS ---
PROCEDURE: XR CHEST 1V INDICATIONS: fever, weakness TECHNIQUE: One view of the chest was acquired. COMPARISON: [facility], CR, XR CHEST 1V, 03/05/2020, 15:36. FINDINGS: Surgical changes and devices: None. Lungs and pleura: Lungs are clear. No pleural effusions or pneumothorax. Mediastinum: Mediastinal contours appear normal. Heart size is normal. Bones and chest wall: No suspicious bony lesions. Overlying soft tissues appear unremarkable. IMPRESSION: No acute process. Dictated by: Sommer Mcdonough M.D. on 11/15/2020 at 21:33 Approved by: Sommer Mcdonough M.D. on 11/15/2020 at 21:34
[2020-11-15 21:03] LABS: Reflexed Lactate in 2 Hours Y
[2020-11-15] MEDS: levoFLOXacin 750 MG/150 ML PIGGYBACK 100 MG IV (21:16)
[2020-11-15] MEDS: LACTATED RINGERS 1,000 ML 1000 ML IV (21:16)
[2020-11-15 21:29] LABS: Appearance Urine UA CLEAR; Bilirubin Urine UA 1+ (NEGATIVE); Glucose Urine UA NEGATIVE (Negative); Ketones Urine UA TRACE (NEGATIVE); Leukocyte Esterase Urine UA NEGATIVE (NEGATIVE); Nitrite Urine UA NEGATIVE (Negative); Occult Blood Urine UA 3+ (Negative); Protein Urine UA 2+ (Negative); Specific Gravity Urine UA 1.015 (1.000-1.035); Urobilinogen Urine UA 0.2 E.U./dL (0.2); pH Urine UA 6.5 (4.5-8.0)
[2020-11-15 21:36] LABS: Bacteria Urine Occasional (0-1); Color Urine UA Dark Yellow; Ictotest Urine Positive (Negative); RBC Urine 1-5/HPF (0-5/HPF); Squamous Epithelial Cell Urine 0-1 /HPF (0-5/HPF)
[2020-11-15 21:37] LABS: Hyaline Casts Urine 0-1/LPF; Mucus Urine 2+ (Negative); WBC Urine 0-1/HPF (0-5/HPF)
[2020-11-15 21:37] LABS: Lactate 2HR (Lactic Acid Rflx) 1.7 mmol/L (0.7-2.1)
[2020-11-15 21:38] LABS: Culture Indicated Urine Cult Not Indicated
--- NOTE | 2020-11-15 22:13 | DI.US.S_ITS ---
PROCEDURE: US ABDOMEN LIMITED INDICATIONS: ELEVATED BILIRUBIN, LFTS TECHNIQUE: Real-time scanning was performed of the abdominal and retroperitoneal organs, with image documentation. COMPARISON: [facility], , US ABDOMEN LIMITED, 09/07/2020, 9:16. FINDINGS: Liver: The liver is mildly increased in size and echogenicity. An area of focal fatty sparing is seen in the gallbladder fossa. Gallbladder: A small shadowing stone is seen in the gallbladder neck. The gallbladder wall is thickened to 5 mm. There is trace pericholecystic fluid. Sonographic Michaud sign is positive. Biliary ducts: Intrahepatic bile ducts are non-dilated. Extrahepatic bile duct caliber measures 6 mm. Normal is 6-7 mm or less in diameter, or 10 mm or less post-cholecystectomy. Pancreas: Is not well visualized secondary to overlying bowel gas. Kidney: A large simple cyst is seen in the right kidney measuring up to 12.3 cm in maximum dimension. Miscellaneous: No free right upper quadrant fluid. IMPRESSION: 1. Cholelithiasis with gallbladder wall thickening, trace pericholecystic fluid, and positive sonographic Michaud sign is suspicious for acute cholecystitis. 2. Diffuse hepatic steatosis with focal fatty sparing. 3. Large simple appearing right renal cyst. There is no significant discrepancy when compared to the overnight Teleradiology report. Dictated by: Won Solomon M.D. on 11/16/2020 at 8:21 Approved by: Won Solomon M.D. on 11/16/2020 at 8:29
[2020-11-16] VITALS (10 sets, daily range): BP systolic 151–188; BP diastolic 74–96; PULSE 82–96; RESP 21–43; O2SAT 94–97
== END 2020-11-16 03:00 | disposition short-term general hospital (02) ==
PROVIDERS: Emergency Provider Emergency Medicine; PCP Student in an Organized Health Care Education/Training Program
DX: K80.50 Calculus of bile duct without cholangitis or cholecystitis without obstruction (principal); Z20.822 Contact with and (suspected) exposure to COVID-19; I10 Essential (primary) hypertension; K21.9 Gastro-esophageal reflux disease without esophagitis; E78.5 Hyperlipidemia, unspecified; C91.90 Lymphoid leukemia, unspecified not having achieved remission; R41.82 Altered mental status, unspecified; R50.9 Fever, unspecified; N40.0 Benign prostatic hyperplasia without lower urinary tract symptoms; R07.9 Chest pain, unspecified
CPT/HCPCS: 36415; 70450; 71045; 76705; 80053; 81001; 81003; 82550; 82728; 83605; 83880; 84484; 85025; 85610; 86140; 87040; 87502; 87635; 93005; 96365; 96366; 99285; C9803; J1956

== ENCOUNTER → 2020-12-27 11:15 | Outpatient (ROUT) | payer MEDICARE, OTHER, SELFPAY ==
[2020-12-27 11:22] LABS: Add Manual Diff / Slide Review NO; Basophils Absolute Auto 0 /uL (0-100); Basophils Percent Auto 0.6 % (0-2); Eosinophils Absolute Auto 200 /uL (0-450); Eosinophils Percent Auto 3.2 % (2-4); Hematocrit 36.1 % (41-53); Hemoglobin 12.4 g/dL (13.5-17.5); Lymphocytes Absolute Auto 1600 /uL (1100-4500); Lymphocytes Percent Auto 31.9 % (25-40); Mean Corpuscular HGB Conc 34.4 % (30-36); Mean Corpuscular Hemoglobin 30.6 PG (26-34); Mean Corpuscular Volume 89.1 fL (80-100); Monocytes Absolute Auto 700 /uL (0-900); Monocytes Percent Auto 13.6 % (3-14); Neutrophils Absolute Auto 2500 /uL (1500-7000); Neutrophils Percent Auto 50.7 % (50-75); Platelet Count 173 X10^3/uL (150-400); Red Blood Cell Count 4.05 X10^6/uL (4.5-5.9); Red Cell Distribution Width 16.9 % (11.6-14.8)
[2020-12-27 11:32] LABS: Alanine Aminotransferase 24 IU/L (<50); Albumin 3.6 g/dL (3.5-5.0); Albumin Globulin Ratio 1.6 (1.0-2.8); Alkaline Phosphatase 105 U/L (38-126); Aspartate Aminotransferase 27 IU/L (17-59); Bilirubin Total 0.4 mg/dL (0.2-1.3); Bilirubin Unconjugated 0.4 mg/dL (0.0-1.1); Globulin 2.3 g/dL (1.7-4.1); HEMOLYSIS < 15 (0-50); Total Protein 5.9 g/dL (6.3-8.2)
== END ==
PROVIDERS: PCP Student in an Organized Health Care Education/Training Program
DX: C91.10 Chronic lymphocytic leukemia of B-cell type not having achieved remission (principal)
CPT/HCPCS: 80076; 85025

== ENCOUNTER → 2021-04-03 14:03 | Outpatient (CLI) | payer MEDICARE, OTHER, SELFPAY ==
[2021-04-03 16:19] LABS: Alanine Aminotransferase 20 IU/L (<50); Albumin 3.4 g/dL (3.5-5.0); Alkaline Phosphatase 62 U/L (38-126); Aspartate Aminotransferase 23 IU/L (17-59); BUN Creatinine Ratio 16.2 (6-22); Bilirubin Total 0.5 mg/dL (0.2-1.3); Blood Urea Nitrogen 12 mg/dL (9-20); Calcium 8.4 mg/dL (8.4-10.2); Carbon Dioxide 29 mmol/L (22-32); Chloride 101 mmol/L (98-107); Estimated Glomerular Filt Rate > 60.0 mL/min (>60); Globulin 1.7 g/dL (1.7-4.1); Glucose 116 mg/dL (80-110); HEMOLYSIS < 15 (0-50); Potassium 3.6 mmol/L (3.4-5.1); Sodium 137 mmol/L (137-145); Total Protein 5.1 g/dL (6.3-8.2)
== END ==
PROVIDERS: PCP Internal Medicine; Referring Provider Internal Medicine Gastroenterology; Visit Provider Internal Medicine Gastroenterology
DX: K80.10 Calculus of gallbladder with chronic cholecystitis without obstruction (principal)
CPT/HCPCS: 36415; 80053

== ENCOUNTER → 2021-06-03 09:26 | Outpatient (CLI) | payer MEDICARE, OTHER, SELFPAY ==
--- NOTE | 2021-06-03 | DI.RAD.S_ITS ---
PROCEDURE: XR CHEST 2V INDICATIONS: Pleural effusion, not elsewhere classified TECHNIQUE: 2 views of the chest were acquired. COMPARISON: [facility], , XR CHEST 1V, 11/15/2020, 21:24. FINDINGS: Surgical changes and devices: Status post median sternotomy and CABG. Lungs and pleura: There is right basilar atelectasis and blunting of the right costophrenic angle consistent with a small right pleural effusion. Mediastinum: Mediastinal contours are normal. Heart size is normal. Vascular calcifications of the aorta are present. Bones and chest wall: No suspicious bony abnormalities. Soft tissues appear unremarkable. IMPRESSION: Small right pleural effusion and right basilar atelectasis. Dictated by: Yohannes Herring M.D. on 06/03/2021 at 13:32 Approved by: Yohannes Herring M.D. on 06/03/2021 at 13:33
[2021-06-03 11:01] LABS: Cholesterol 108 mg/dL (140-199); HDL Cholesterol 29 mg/dL (40-60); LDL Cholesterol Calculated 41 mg/dL (<100); Triglycerides 188 mg/dL (35-150)
== END ==
PROVIDERS: PCP Internal Medicine; Referring Provider Internal Medicine Cardiovascular Disease; Visit Provider Internal Medicine Cardiovascular Disease
DX: E78.5 Hyperlipidemia, unspecified (principal); J90 Pleural effusion, not elsewhere classified
CPT/HCPCS: 36415; 71046; 80061

== ENCOUNTER → 2021-08-12 15:42 | Outpatient (CLI) | payer MEDICARE, OTHER, SELFPAY ==
--- NOTE | 2021-08-12 15:46 | DI.ECHO.S_ITS ---
[facility] +---------+ : : [address] [place] : : : : [id number] : : : : Phone: [phone]+ Echocardiogram Report + + :Name: FAIZA PATTON Study Date: 08/12/2021 Height: 70 in : :[facility] ReadingLocation: Weight: 176 lb : : Gender: Male BSA: 2.0 m2 : :: 1955 Age: 66 yrs BP: 143/85 mmHg: :Reason For Study: POSTPROCEDURAL STATES : :Ordering Physician: MICHELLE, : :HARISH Performed By: Elvia Russell : :Referring: HARISH MARTINEZ : + + Interpretation Summary The left ventricular cavity is small. There is moderate proximal septal thickening noted. History of myomectomy. There is moderate asymmetric left ventricular hypertrophy. The ejection fraction is estimated to be 60-65%. The left ventricular outflow velocity with valsalva is 2.85 meters per second. In January 16, 2020, LV outflow tract velocity with Valsalva was 5.8 m/s and at rest 4.9 m/s. 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 This has decreased from the previous study. The right ventricle is normal in size and function. S/p Mitral valve repair with Boris stitch. The Boris stitch (a.k.a. Mclaughlin- Tie Procedure or [id number] mitral valve repair) is a surgical technique used to treat severe mitral regurgitation during which a suture was placed between the A2 and P2 segments of the mitral valve. There is systolic anterior motion of the chordal apparatus. There is mild to moderate mitral regurgitation. Compared to the prior echo study, there has been an increase in the severity of mitral regurgitation. The IVC is of normal diameter and collapses greater than 50% with a sniff. This suggests a low right atrial pressure of 3 mm Hg. There is a dense bandlike structure seen in the right atrium from some of the apical views which run across the right atrium. Likely roof of the right atrium. It does not appears to be thrombus or vegetation or tumor-like growth. There is no color turbulence around it. There is a echogenic shadow behind right atrium likely loculated small pericardial effusion. Reviewed with my associate Dr. Garcia and Dr. Spangler. Procedure: A two-dimensional transthoracic echocardiogram with color flow and Doppler was performed. The study quality was technically adequate. Comparison is made with the echocardiogram of 01/16/2020. The patient was in sinus rhythm with heart rates between 65-77 bpm during the exam. Left Ventricle: The left ventricular cavity is small. An intracavitary gradient is suspected. There is moderate asymmetric left ventricular hypertrophy. History of myomectomy. There is moderate proximal septal thickening noted. The left ventricular outflow velocity with valsalva is 2.85. 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 There is no thrombus. The ejection fraction is estimated to be 60-65%. Septal motion is consistent with conduction abnormality. E/E' med: 29.4. Right Ventricle: The right ventricle is normal in size and function. Atria: Both atria are normal in size. The left atrium has mildly decreased in size since the prior echo exam. There is a dense bandlike structure seen in the right atrium from some of the apical views which run across the right atrium. Likely roof of the right atrium. It does not appears to be thrombus or vegetation or tumor-like growth. There is no color turbulence around it. There is a echogenic shadow behind right atrium likely loculated small pericardial effusion. Reviewed with my associate Dr. Garcia and Dr. Spangler. The interatrial septum grossly appears intact with no obvious evidence for an atrial septal defect. Mitral Valve: S/p Mitral valve repair with Boris stitch. The Boris stitch (a.k.a. Mclaughlin-Tie Procedure or [id number] mitral valve repair) is a surgical technique used to treat severe mitral regurgitation during which a suture was placed between the A2 and P2 segments of the mitral valve. There is systolic anterior motion of the chordal apparatus. Redundant elongated chordae are noted. There is mild to moderate mitral regurgitation. Compared to the prior echo study, there has been an increase in the severity of mitral regurgitation. Aortic Valve: The aortic valve is trileaflet. The aortic valve opens well. The aortic valve is mildly calcified. There is no aortic valve stenosis. There is trace aortic regurgitation. Tricuspid Valve: The tricuspid valve is normal in structure and function. There is trace tricuspid regurgitation. Pulmonary artery pressures cannot be estimated because of the lack of a measurable TR jet velocity but the IVC suggests a CVP of around 3 mmHg. Pulmonic Valve: The pulmonic valve is not well visualized. There is trace pulmonic regurgitation. Great Vessels: The aortic root is normal size. The dimensions of the ascending aorta are normal. The IVC is of normal diameter and collapses greater than 50% with a sniff. This suggests a low right atrial pressure of 3 mm Hg. Pericardium/ Pleura Likely small loculated pericardial effusion behind the right atrium in apical views. There is no pleural effusion. MMode/2D Measurements & Calculations LVIDd: 3.6 cm LVOT diam: 2.1 cm LVIDs: 2.5 cm Ao root diam: 3.5 cm FS: 31.4 % asc Aorta Diam: 3.2 cm IVSd: 1.6 cm Ao Arch Diam (Prox Trans): 3.6 cm LVPWd: 1.1 cm LV trujillo. diameter/BSA (cm/m^2): 1.8 LV sys. diameter/BSA (cm/m^2): 1.3 LA A2 area: 17.2 cm2 RA long axis: 5.7 cm LA A4 area: 16.0 cm2 RA area: 17.0 cm2 LA length (vol): 5.4 cm RA vol: 43.4 ml LA vol: 43.0 ml RA : 21.9 ml/m2 LA vol index: 21.8 ml/m2 IVC diam: 1.3 cm RVD1 (basal): 3.4 cm TAPSE: 1.6 cm Doppler Measurements & Calculations Ao V2 max: 202.0 cm/sec LVOT Max Javi: 145.2 cm/sec Ao V2 mean: 139.2 cm/sec LV V1 max P.4 mmHg Ao max P.5 mmHg LV V1 VTI: 26.9 cm Ao mean P.5 mmHg LAURO(I,D): 3.0 cm2 Ao V2 VTI: 32.4 cm LAURO(V,D): 2.6 cm2 sev ratio: 0.83 LAURO indexed to BSA (cm^2/m^2): 1.5 MV E max javi: 98.3 cm/sec PA V2 max: 97.5 cm/sec MV A max javi: 1.6 cm/sec PA V2 mean: 71.5 cm/sec MV E/A: 60.2 PA mean P.2 mmHg Med Peak E' Javi: 3.3 cm/sec PA pr(Accel): 29.3 mmHg E/E' med: 29.4 Lat Peak E' Javi: 5.9 cm/sec E/E' lat: 16.6 E/e' average: 23.0 MV dec time: 0.11 sec SV(OT): 96.2 ml Reading Physician:[id number] PM
== END ==
PROVIDERS: PCP Internal Medicine; Referring Provider Internal Medicine Cardiovascular Disease; Visit Provider Internal Medicine Cardiovascular Disease
DX: I34.0 Nonrheumatic mitral (valve) insufficiency (principal); Z98.890 Other specified postprocedural states
CPT/HCPCS: 93306

== ENCOUNTER 2021-11-05 18:14 | Emergency (ER) | payer MEDICARE, OTHER, SELFPAY ==
[2021-11-05] VITALS (16 sets, daily range): BP systolic 145–182; BP diastolic 73–90; PULSE 81–106; RESP 16–26; TEMP 37.2; O2SAT 96–98; BMI 31.5
[2021-11-05 19:12] LABS: COVID19 -Nasal RAPID Negative (Negative)
[2021-11-05 19:39] LABS: Hematocrit 40.9 % (41-53); Hemoglobin 13.9 g/dL (13.5-17.5); Mean Corpuscular HGB Conc 33.9 % (30-36); Mean Corpuscular Hemoglobin 31.6 PG (26-34); Mean Corpuscular Volume 93.2 fL (80-100); Platelet Count 84 X10^3/uL (150-400); Red Blood Cell Count 4.38 X10^6/uL (4.5-5.9); Red Cell Distribution Width 16.2 % (11.6-14.8); White Blood Cell Count 17.8 X10^3/uL (4.5-11.0)
[2021-11-05 19:40] LABS: Add Manual Diff / Slide Review YES
[2021-11-05 19:42] LABS: Alanine Aminotransferase 18 IU/L (<50); Albumin 4.5 g/dL (3.5-5.0); Albumin Globulin Ratio 1.6 (1.0-2.8); Alkaline Phosphatase 67 U/L (38-126); Aspartate Aminotransferase 39 IU/L (17-59); BUN Creatinine Ratio 17.9 (6-22); Blood Urea Nitrogen 20 mg/dL (9-20); Calcium 9.2 mg/dL (8.4-10.2); Carbon Dioxide 30 mmol/L (22-32); Chloride 101 mmol/L (98-107); Estimated Glomerular Filt Rate > 60.0 mL/min (>60); Globulin 2.8 g/dL (1.7-4.1); Glucose 134 mg/dL (80-110); Lipase 36 U/L (23-300); Potassium 4.7 mmol/L (3.4-5.1); Sodium 137 mmol/L (137-145); Total Protein 7.3 g/dL (6.3-8.2)
[2021-11-05 19:46] LABS: HEMOLYSIS 64 (0-50)
--- NOTE | 2021-11-05 20:13 | ED.GENADULT ---
HPI - General Adult <Bong Hernandez DO - Last Filed: 11/11/21 23:57> General Chief complaint: Weakness Stated complaint: Weakness, abd pain and diarrhea Time Seen by Provider: 11/05/21 19:31 Source: patient and family Mode of arrival: EMS History of Present Illness HPI narrative: Patient is a 66-year-old male who arrived by EMS for was initially described as weakness. He is with his . His reports that earlier today he was so weak that she could not get him up off of the floor. She states that the weakness has been going on for the past several weeks if not longer. She stated that all started earlier in the year when he was diagnosed with gallbladder/pancreas issues. Was transferred from this facility to an outside facility where he eventually had a coronary artery bypass graft and then had his gallbladder removed. She states that since that time he has not fully recovered. For period of time he was in a wheelchair. He does use a walker at home now. He does require significant assistance with moving around at home. States that earlier today she just could not help him move around so EMS was contacted to bring him to the emergency department. Somewhat difficult to obtain any HPI from the patient. He states he is having some chest discomfort and some abdominal discomfort. He defers to his with regarding answering quite a few the questions as to why he is here. He does seem somewhat confused. His states that he has had a cognitive decline as well over the past several weeks/months. He does have a history of CLL. He is followed by [facility]. He is currently getting immunotherapy for this but not chemotherapy. seems fairly frustrated about the situation and that his physical decline over the past several weeks and not having a specific diagnosis. Related Data Home Medications Medication Instructions Recorded Confirmed atorvastatin 40 mg tablet 40 mg PO DAILY 08/31/20 07/05/21 promethazine 25 mg tablet 25 mg PO TID PRN 09/28/20 07/05/21 multivitamin 1 tab PO DAILY 03/15/21 07/05/21 aspirin 81 mg tablet,delayed 162 mg PO QPM tab 05/10/21 07/05/21 release (Adult Low Dose Aspirin) metoprolol succinate 25 mg 12.5 mg PO QPM tab 05/10/21 07/05/21 tablet,extended release 24 hr tamsulosin 0.4 mg capsule 0.4 mg PO .QOTHERDAY cap 07/05/21 07/05/21 Previous Rx's Medication Instructions Recorded omeprazole 20 mg capsule,delayed 20 mg PO DAILY #30 cap 12/22/19 release Disabled Parking #1 ea 07/05/21 Allergies Allergy/AdvReac Type Severity Reaction Status Date / Time ofatumumab Allergy Unknown pronounced Verified 11/06/21 06:38 vasodilation Review of Systems <Bong Hernandez DO - Last Filed: 11/11/21 23:57> Review of Systems Narrative: Review of systems somewhat limited given the patient's willingness/inability to answer questions. Much of the review of systems coming from his . Constitutional Constitutional: Denies frequent falls Comments: He denies headache Cardiovascular Comments: States he does have some chest discomfort Respiratory Comments: Does have some shortness of breath Gastrointestinal Comments: Endorses abdominal pain Musculoskeletal Comments: No specific muscle or joint pain Integumentary/Breasts Skin/Breast: Reports system reviewed and no additional complaints, except as documented Neurologic Neurologic: Reports confusion and Denies frequent falls Psychiatric Psychiatric: Reports confusion Hematologic/Lymphatic On Anticoagulants: No Patient History <Bong Hernandez DO - Last Filed: 11/11/21 23:57> Medical History Abnormal liver enzymes BPH (benign prostatic hyperplasia) Cardiomyopathy Cholecystostomy tube dysfunction Chronic cholecystitis with calculus Chronic nausea CLL (chronic lymphocytic leukemia) Essential hypertension History of gross hematuria HOCM (hypertrophic obstructive cardiomyopathy) Hyperglycemia Hyperglycemia Hypertension Left ventricular outflow tract obstruction Leukemia ESCUDERO (nonalcoholic steatohepatitis) Surgical History History of allogeneic stem cell transplant History of cholecystectomy (~01/30/21) History of open heart surgery (~12/03/20) S/P CABG (coronary artery bypass graft) S/P TURP Family History Other No pertinent family history Social History Smoking Status: Former smoker Smoking Status: Former smoker alcohol intake frequency: 0-2 drinks per day Substance Use Type: does not use Exam <Bong Hernandez DO - Last Filed: 11/11/21 23:57> Initial Vital Signs Initial Vital Signs: Vital Signs Pulse Oximetry 96 11/05/21 18:18 Const General: well developed, No acute distress and frail appearing [facility] Head: normocephalic Face and sinus: normal facial exam Mouth: oral mucosae normal Resp Effort & Inspection: not labored and tachypneic Auscultation: clear to auscultation bilaterally Cardio Rate: regular rate Rhythm: regular rhythm GI Inspection: normal to inspection and non-distended Palpation: soft Skin General: no rashes or lesions noted Neuro Cranial Nerves: CN's II-XI intact bilaterally Speech: speech normal Other: Patient knows his 's name. He knows that he is in hospital. Somewhat confused about the year. Is ample no answer some review of systems questions but does seem confused about some of the answers. Patient is able to move bilateral upper extremities. He is able to wiggle his toes but cannot lift his lower extremities off the bed. Extrem General: normal to inspection and capillary refill normal Psych Appearance: grossly normal and well kempt <Frances Tran MD - Last Filed: 11/06/21 18:33> Initial Vital Signs Initial Vital Signs: Vital Signs Pulse Oximetry 96 11/05/21 18:18 Scores <Bong Hernandez DO - Last Filed: 11/11/21 23:57> GCS Renfrew coma scale eye opening: Spontaneous Renfrew coma scale verbal response: Orientated Zulema coma scale motor response: Obey commands Renfrew coma scale total score: 15 <Frances Tran MD - Last Filed: 11/06/21 18:33> GCS Renfrew coma scale total score: 15 Course <Bong Hernandez DO - Last Filed: 11/11/21 23:57> Orders Ordered: Discontinued Medications Aspirin (Aspirin Ec 81 Mg Tablet) 81 mg PO NOW ONE Stop: 11/05/21 23:47 Last Admin: 11/06/21 00:15 Dose: 81 mg Documented by: GUILLERMO Atorvastatin Calcium (Atorvastatin 20 Mg Tablet) 40 mg PO NOW ONE Stop: 11/05/21 23:47 Last Admin: 11/06/21 00:13 Dose: 40 mg Documented by: GUILLERMO Piperacillin Sod/Tazobactam (Sod 4.5 gm/ Sodium Chloride) 100 mls @ 200 mls/hr IV NOW ONE Stop: 11/06/21 06:20 Last Infusion: 11/06/21 09:43 Dose: 0 mls/hr Documented by: Admin: 11/06/21 06:51 Dose: 200 mls/hr Documented by: TERESO Sodium Chloride (Normal Saline 0.9%) 1,000 mls @ 100 mls/hr IV CONT RUBÉN Last Infusion: 11/06/21 09:42 Dose: 0 mls/hr Documented by: Admin: 11/06/21 06:50 Dose: 100 mls/hr Documented by: TERESO Vancomycin HCl/Dextrose (Vancomycin) 2,000 mg in 400 mls @ 200 mls/hr IV NOW ONE Stop: 11/06/21 09:14 Last Infusion: 11/06/21 09:42 Dose: 0 mls/hr Documented by: Admin: 11/06/21 07:57 Dose: 200 mls/hr Documented by: PRUDENCE Metoclopramide HCl (Metoclopramide 10 Mg/2 Ml Inj) 10 mg IV NOW ONE Stop: 11/06/21 06:38 Last Admin: 11/06/21 06:50 Dose: 10 mg Documented by: TERESO Metoprolol Succinate (Metoprolol Er 25 Mg Tablet) 12.5 mg PO NOW ONE Stop: 11/05/21 23:51 Last Admin: 11/06/21 00:13 Dose: 12.5 mg Documented by: GUILLERMO Mirtazapine (Mirtazapine 15 Mg Tablet) 30 mg PO BEDTIME [facility] Last Admin: 11/06/21 00:13 Dose: 30 mg Documented by: GUILLERMO Ondansetron HCl (Ondansetron 4 Mg/2 Ml Inj) 4 mg IV NOW ONE Stop: 11/05/21 21:09 Last Admin: 11/05/21 21:14 Dose: 4 mg Documented by: GRAYSON Ondansetron HCl (Ondansetron 4 Mg/2 Ml Inj) 4 mg IV NOW ONE Stop: 11/06/21 00:40 Last Admin: 11/06/21 00:43 Dose: 4 mg Documented by: GUILLERMO Tamsulosin HCl (Tamsulosin 0.4 Mg Capsule) 0.4 mg PO NOW ONE Stop: 11/05/21 23:50 Last Admin: 11/06/21 00:13 Dose: 0.4 mg Documented by: GUILLERMO Vital Signs Vital signs: Vital Signs - 8 hr 11/05/21 23:30 11/06/21 00:00 11/06/21 00:30 Temperature Pulse Rate 100 H 102 H 101 H Respiratory Rate 26 H 27 H 31 H Blood Pressure 153/73 H 155/78 H 177/86 H Pulse Oximetry 96 96 96 11/06/21 01:00 11/06/21 01:30 11/06/21 01:59 Temperature Pulse Rate 102 H 104 H 104 H Respiratory Rate 27 H 28 H Blood Pressure 186/84 H 164/92 H 164/92 H Pulse Oximetry 96 98 11/06/21 02:00 11/06/21 02:30 11/06/21 03:00 Temperature Pulse Rate 104 H 103 H 105 H Respiratory Rate 28 H 28 H 29 H Blood Pressure 166/81 H 162/78 H 164/79 H Pulse Oximetry 98 97 96 11/06/21 03:30 11/06/21 04:00 11/06/21 04:30 Temperature Pulse Rate 106 H 106 H 108 H Respiratory Rate 29 H 28 H 29 H Blood Pressure 157/82 H 157/79 H 159/80 H Pulse Oximetry 95 95 96 11/06/21 05:00 11/06/21 05:30 11/06/21 06:00 Temperature Pulse Rate 110 H 110 H 114 H Respiratory Rate 31 H 31 H 33 H Blood Pressure 166/91 H 168/79 H 172/81 H Pulse Oximetry 96 94 90 L 11/06/21 06:11 11/06/21 06:16 11/06/21 06:30 Temperature 100.7 F H Pulse Rate 115 H 112 H Respiratory Rate 33 H 22 33 H Blood Pressure 160/72 H 163/90 H Pulse Oximetry 93 94 91 <Frances Tran MD - Last Filed: 11/06/21 18:33> Orders Ordered: Discontinued Medications Aspirin (Aspirin Ec 81 Mg Tablet) 81 mg PO NOW ONE Stop: 11/05/21 23:47 Last Admin: 11/06/21 00:15 Dose: 81 mg Documented by: GUILLERMO Atorvastatin Calcium (Atorvastatin 20 Mg Tablet) 40 mg PO NOW ONE Stop: 11/05/21 23:47 Last Admin: 11/06/21 00:13 Dose: 40 mg Documented by: GUILLERMO Piperacillin Sod/Tazobactam (Sod 4.5 gm/ Sodium Chloride) 100 mls @ 200 mls/hr IV NOW ONE Stop: 11/06/21 06:20 Last Infusion: 11/06/21 09:43 Dose: 0 mls/hr Documented by: Admin: 11/06/21 06:51 Dose: 200 mls/hr Documented by: TERESO Sodium Chloride (Normal Saline 0.9%) 1,000 mls @ 100 mls/hr IV CONT [facility] Last Infusion: 11/06/21 09:42 Dose: 0 mls/hr Documented by: Admin: 11/06/21 06:50 Dose: 100 mls/hr Documented by: TERESO Vancomycin HCl/Dextrose (Vancomycin) 2,000 mg in 400 mls @ 200 mls/hr IV NOW ONE Stop: 11/06/21 09:14 Last Infusion: 11/06/21 09:42 Dose: 0 mls/hr Documented by: Admin: 11/06/21 07:57 Dose: 200 mls/hr Documented by: PRUDENCE Metoclopramide HCl (Metoclopramide 10 Mg/2 Ml Inj) 10 mg IV NOW ONE Stop: 11/06/21 06:38 Last Admin: 11/06/21 06:50 Dose: 10 mg Documented by: TERESO Metoprolol Succinate (Metoprolol Er 25 Mg Tablet) 12.5 mg PO NOW ONE Stop: 11/05/21 23:51 Last Admin: 11/06/21 00:13 Dose: 12.5 mg Documented by: GUILLERMO Mirtazapine (Mirtazapine 15 Mg Tablet) 30 mg PO BEDTIME [facility] Last Admin: 11/06/21 00:13 Dose: 30 mg Documented by: GUILLERMO Ondansetron HCl (Ondansetron 4 Mg/2 Ml Inj) 4 mg IV NOW ONE Stop: 11/05/21 21:09 Last Admin: 11/05/21 21:14 Dose: 4 mg Documented by: GRAYSON Ondansetron HCl (Ondansetron 4 Mg/2 Ml Inj) 4 mg IV NOW ONE Stop: 11/06/21 00:40 Last Admin: 11/06/21 00:43 Dose: 4 mg Documented by: GUILLERMO Tamsulosin HCl (Tamsulosin 0.4 Mg Capsule) 0.4 mg PO NOW ONE Stop: 11/05/21 23:50 Last Admin: 11/06/21 00:13 Dose: 0.4 mg Documented by: GUILLERMO Vital Signs Vital signs: Vital Signs - 8 hr 11/05/21 23:30 11/06/21 00:00 11/06/21 00:30 Temperature Pulse Rate 100 H 102 H 101 H Respiratory Rate 26 H 27 H 31 H Blood Pressure 153/73 H 155/78 H 177/86 H Pulse Oximetry 96 96 96 11/06/21 01:00 11/06/21 01:30 11/06/21 01:59 Temperature Pulse Rate 102 H 104 H 104 H Respiratory Rate 27 H 28 H Blood Pressure 186/84 H 164/92 H 164/92 H Pulse Oximetry 96 98 11/06/21 02:00 11/06/21 02:30 11/06/21 03:00 Temperature Pulse Rate 104 H 103 H 105 H Respiratory Rate 28 H 28 H 29 H Blood Pressure 166/81 H 162/78 H 164/79 H Pulse Oximetry 98 97 96 11/06/21 03:30 11/06/21 04:00 11/06/21 04:30 Temperature Pulse Rate 106 H 106 H 108 H Respiratory Rate 29 H 28 H 29 H Blood Pressure 157/82 H 157/79 H 159/80 H Pulse Oximetry 95 95 96 11/06/21 05:00 11/06/21 05:30 11/06/21 06:00 Temperature Pulse Rate 110 H 110 H 114 H Respiratory Rate 31 H 31 H 33 H Blood Pressure 166/91 H 168/79 H 172/81 H Pulse Oximetry 96 94 90 L 11/06/21 06:11 11/06/21 06:16 11/06/21 06:30 Temperature 100.7 F H Pulse Rate 115 H 112 H Respiratory Rate 33 H 22 33 H Blood Pressure 160/72 H 163/90 H Pulse Oximetry 93 94 91 Medical Decision Making <Bong Hernandez DO - Last Filed: 11/11/21 23:57> Medical Records Medical records reviewed: Yes I reviewed the patient's medical records. Lab Data Lab results reviewed: Yes I reviewed the patient's lab results. Result diagrams: 11/05/21 18:20 11/05/21 18:20 Labs: Lab Results 11/05/21 11/05/2111/05/21 Range/Units 18:20 18:20 18:20 WBC 17.8 H (4.5-11.0) X10^3/uL RBC 4.38 L (4.5-5.9) X10^6/uL Hgb 13.9 (13.5-17.5) g/dL Hct 40.9 L (41-53) % MCV 93.2 (80-100) fL MCH 31.6 (26-34) PG MCHC 33.9 (30-36) % RDW 16.2 H (11.6-14.8) % Plt Count 84 L (150-400) X10^3/uL Neut % (Auto) Not Reportable Lymph % (Auto) Not Reportable [place] % (Auto) Not Reportable Eos % (Auto) Not Reportable Baso % (Auto) Not Reportable Lymph # (Auto) Not Reportable [place] # (Auto) Not Reportable Baso # (Auto) Not Reportable Total Counted 100 Seg Neutrophils % 5.0 L (38-70) % Band Neutrophils % 3.0 (3-7) % Lymphocytes % (Manual) 89.0 H (25-45) % Monocytes % (Manual) 3.0 (2-11) % Neutrophils # (Manual) 1424 L (2977-1085) /uL RBC Morphology See below Anisocytosis 1+ H Sodium 137 (137-145) mmol/L Potassium 4.7 (3.4-5.1) mmol/L Chloride 101 (98-107) mmol/L Carbon Dioxide 30 (22-32) mmol/L BUN 20 (9-20) mg/dL Creatinine 1.12 (0.66-1.25) mg/dL Estimated GFR > 60.0 (>60) mL/min BUN/Creatinine Ratio 17.9 (6-22) Glucose 134 H (80-110) mg/dL Lactate (0.7-2.1) mmol/L Calcium 9.2 (8.4-10.2) mg/dL Total Bilirubin 1.0 (0.2-1.3) mg/dL AST 39 (17-59) IU/L ALT 18 (<50) IU/L Alkaline Phosphatase 67 (38-126) U/L Total Protein 7.3 (6.3-8.2) g/dL Albumin 4.5 (3.5-5.0) g/dL Globulin 2.8 (1.7-4.1) g/dL Albumin/Globulin Ratio 1.6 (1.0-2.8) Lipase 36 (23-300) U/L Procalcitonin (<0.5) ng/mL Ur Bilirubin Confirm (Negative) Urine RBC (0-5/HPF) Urine WBC (0-5/HPF) Ur Squamous Epith Cells (0-5/HPF) Urine Bacteria (None) Ur Culture Indicated? SARS-CoV-2 (PCR) Negative (Negative) 11/05/21 11/06/21 11/06/21 Range/Units 20:00 06:25 06:25 WBC (4.5-11.0) X10^3/uL RBC (4.5-5.9) X10^6/uL Hgb (13.5-17.5) g/dL Hct (41-53) % MCV (80-100) fL MCH (26-34) PG MCHC (30-36) % RDW (11.6-14.8) % Plt Count (150-400) X10^3/uL Neut % (Auto) Lymph % (Auto) [place] % (Auto) Eos % (Auto) Baso % (Auto) Lymph # (Auto) [place] # (Auto) Baso # (Auto) Total Counted Seg Neutrophils % (38-70) % Band Neutrophils % (3-7) % Lymphocytes % (Manual) (25-45) % Monocytes % (Manual) (2-11) % Neutrophils # (Manual) (6208-3020) /uL RBC Morphology Anisocytosis Sodium (137-145) mmol/L Potassium (3.4-5.1) mmol/L Chloride (98-107) mmol/L Carbon Dioxide (22-32) mmol/L BUN (9-20) mg/dL Creatinine (0.66-1.25) mg/dL Estimated GFR (>60) mL/min BUN/Creatinine Ratio (6-22) Glucose (80-110) mg/dL Lactate 1.8 (0.7-2.1) mmol/L Calcium (8.4-10.2) mg/dL Total Bilirubin (0.2-1.3) mg/dL AST (17-59) IU/L ALT (<50) IU/L Alkaline Phosphatase (38-126) U/L Total Protein (6.3-8.2) g/dL Albumin (3.5-5.0) g/dL Globulin (1.7-4.1) g/dL Albumin/Globulin Ratio (1.0-2.8) Lipase (23-300) U/L Procalcitonin 0.39 (<0.5) ng/mL Ur Bilirubin Confirm Negative (Negative) Urine RBC 0-1/hpf (0-5/HPF) Urine WBC 0-1/hpf (0-5/HPF) Ur Squamous Epith Cells 0-1 /hpf (0-5/HPF) Urine Bacteria Few (2-10) H (None) Ur Culture Indicated? Cult not indicated SARS-CoV-2 (PCR) (Negative) Urine Dip Bedside Urine Glucose Negative Bedside Urine Bilirubin + 1 Bedside Urine Ketone - Negative Urine Specific [place] 1.025 Bedside Urine Occult Blood - Negative Bedside Urine pH 6.0 Bedside Urine Protein + 30 Bedside Urine Urobilinogen - Negative Bedside Urine Nitrite - Negative Bedside Urine Leukocytes - Negative Esterase Point of care testing: Urine Dip Bedside Urine Glucose Negative Bedside Urine Bilirubin + 1 Bedside Urine Ketone - Negative Urine Specific [place] 1.025 Bedside Urine Occult Blood - Negative Bedside Urine pH 6.0 Bedside Urine Protein + 30 Bedside Urine Urobilinogen - Negative Bedside Urine Nitrite - Negative Bedside Urine Leukocytes - Negative Esterase Imaging Data CT scan - abdomen/pelvis: Radiologist's Impression: [address] [address] [address] Scan Report Signed Patient: Jona Hernadez MR#: [id number] : 1955 Acct:[id number] Age/Sex: 66 / M Date of Service: 11/05/21 Loc: ED Accession Number: [id number] ?? Procedure: CT abdomen pelvis w con Ordering Provider: Bong Hernandez D.O. PROCEDURE:? CT ABDOMEN PELVIS W CON ? INDICATIONS:? Generalized abdominal pain ? TECHNIQUE:? After the administration of intravenous contrast, axial sections acquired from the lung bases to the pubic symphysis.? Coronal and sagittal reformats were performed.? For radiation dose reduction, the following was used:? automated exposure control, adjustment of mA and/or kV according to patient size.? ? COMPARISON:? Outside Facility, RG, CT CHEST/ABD/PEL W/CONTRAST, 08/20/2015, 17:36. ? FINDINGS:? Image quality:? Excellent.? ? Lung bases:? Large right-sided pleural fluid collection. Heart:? Dense atherosclerotic calcifications noted in the visualized coronary vasculature. ? ABDOMEN: Liver:? Liver has mildly nodular margins compatible cirrhosis.? Portal vein is mildly enlarged measuring 2 centimeters. Gallbladder:? Unremarkable.? ? Biliary ducts:? Unremarkable.? ? Pancreas:? Unremarkable.? ? Spleen:? Spleen is enlarged measuring 19.1 centimeters in long axis.? Splenorenal venous varices noted likely related to sequela of chronic portal hypertension. Adrenal Glands:? Unremarkable.? ? Kidneys and Ureters:? Bilateral renal cysts including a large 10.1 centimeter exophytic right renal cyst which has a few coarse calcifications in the periphery. ? Stomach and Bowel:? Stomach, small bowel loops, and colon are unremarkable.? Peritoneum:? No abnormal intraperitoneal fluid.? No free air.? ? Ventral Wall: ? No hernias.? Abdominal Nodes:? Prominent and mildly enlarged periportal periaortic lymph nodes noted.? Multiple enlarged peripancreatic lymph nodes are noted with largest node measuring 3.3 centimeters.. Vessels:? Aorta and inferior vena cava are normal in size. Scattered atherosclerotic calcifications involving the abdominal and pelvic vasculature. ? PELVIS: Pelvic Organs:? Unremarkable.? ? Bladder:? Unremarkable.? ? Pelvic Nodes: No enlarged lymph nodes.? Miscellaneous: No hernias are seen. ? ? ? Bones:? Spine degenerative disc disease and facet arthropathy. ? ? IMPRESSION:? ? 1. Large right-sided pleural effusion. ? 2. Cirrhotic appearing liver.? ? 3. Splenomegaly with splenorenal venous varices compatible with sequela of chronic portal hypertension.? ? 4. Peripancreatic and periportal lymphadenopathy with multiple prominent and mildly enlarged periaortic lymph nodes.? Findings suspicious for lymphoma or metastatic disease. ? 5. Atherosclerosis including the coronary vasculature. ? 6. Multiple bilateral renal cysts.? ? ? Dictated by: Sarah Guadarrama MD, PhD on 11/05/2021 at 21:02 ? ? Approved by: Sarah Guadarrama MD, PhD on 11/05/2021 at 21:10?? CT scan - head: Radiologist's Impression: [address] [address] [address] Scan Report Signed Patient: Jona Hernadez MR#: [id number] : 1955 Acct:[id number] Age/Sex: 66 / M Date of Service: 11/05/21 Loc: ED Accession Number: [id number] ?? Procedure: CT head/brain wo con Ordering Provider: Bong Hernandez D.O. PROCEDURE:? CT HEAD/BRAIN WO CON ? INDICATIONS:? Weakness, cannot walk ? TECHNIQUE:? Noncontrast 4.5 mm thick angled axial sections acquired from the foramen magnum to the vertex, with coronal and sagittal reformats.? For radiation dose reduction, the following was used:? automated exposure control, adjustment of mA and/or kV according to patient size.? ? COMPARISON:? None. ? FINDINGS:? Image quality:? Excellent.? ? CSF spaces:? Basal cisterns are patent.? No extra-axial fluid collections.? The ventricles are symmetric in size and shape.? ? Brain:? No intracranial bleeds or masses.? There is cerebral volume loss for age, with resultant ventricular and sulcal prominence.? There are periventricular and deep white matter chronic small vessel ischemic changes.? There is intracranial internal carotid artery atherosclerosis.? ? Skull and face:? Calvarium and visualized facial bones appear intact, without suspicious lesions.? ? Sinuses:? Visualized sinuses and mastoids are clear.? ? IMPRESSION:? No acute intracranial disease process. ? ? Dictated by: Sarah Guadarrama MD, PhD on 11/05/2021 at 20:59 ? ? Approved by: Sarah Guadarrama MD, PhD on 11/05/2021 at 21:01?? CT scan - chest: Radiologist's Impression: [address] [address] [address] Scan Report Signed Patient: Jona Hernadez MR#: [id number] : 1955 Acct:[id number] Age/Sex: 66 / M Date of Service: 11/05/21 Loc: ED Accession Number: [id number] ?? Procedure: CT chest w con Ordering Provider: Bong Hernandez D.O. PROCEDURE:? CT CHEST W CON ? INDICATIONS:? Right sided effusion with hx of CLL ? TECHNIQUE:? After the administration of intravenous contrast, 5 mm thick sections acquired from the pulmonary apices to the posterior costophrenic angles.? 1 mm axial lung, 5 mm thick coronal and sagittal reformats and 7 mm axial MIP were acquired.? For radiation dose reduction, the following was used:? automated exposure control, adjustment of mA and/or kV according to patient size.? ? COMPARISON:? None. ? FINDINGS:? Image quality:? Excellent.? ? Lungs and pleura:? No acute air space opacities.? Large right-sided pleural effusion.? Central and peripheral airways are patent and normal in caliber.? ? Mediastinum:? Heart size is normal.? Status post CABG procedure.? Atherosclerotic calcifications in the coronary vascular, aorta in the great vessels.? No pericardial effusion.? Enlarged mediastinal lymph nodes are noted.? No hilar adenopathy by size criteria.? Thoracic aorta and central pulmonary arteries are normal in size.? Esophagus is normal in caliber.? No hiatal hernia.? ? Bones and chest wall:? No suspicious bony lesions.? No vertebral body compression fractures.? Enlarged bilateral supraclavicular lymph nodes noted.? Enlarged left subpectoral lymph nodes noted.? Thyroid gland is within normal limits..? ? Abdomen:? Visualized upper abdominal solid organs appear normal.? Upper abdominal bowel loops are normal in caliber.? Enlarged lymph node noted anterior to the right lobe of the liver.? IMPRESSION:? ? 1. Large right-sided pleural effusion. ? 2. Mediastinal, bilateral supraclavicular and left subpectoral lymphadenopathy compatible port history of CLL. ? 3. Atherosclerosis including dense atherosclerotic calcifications in the coronary vessels.? Postsurgical changes compatible prior CABG procedure noted.? ? ? Dictated by: Sarah Guadarrama MD, PhD on 11/05/2021 at 21:25 ? ? Approved by: Sarah Guadarrama MD, PhD on 11/05/2021 at 21:29?? Chest x-ray: Radiologist's Impression: Right perihilar airspace disease associated with a trace right pleural effusion some bronchial wall thickening which can be seen in the setting of underlying reactive airway disease such as asthma or bronchitis MDM Narrative Medical decision making narrative: Patient does have a leukocytosis today. Our last labs that we have in our facility from earlier this year where he did not have leukocytosis. A manual differential does not show any blasts. His kidney function is unremarkable. Electrolytes are unremarkable. The CT scan of his head shows no acute pathology. CT scan the abdomen pelvis and his chest show a right-sided pleural effusion and multiple intra-abdominal and thoracic lymph nodes. Patient's seem surprised by this. I was able to discuss the case with Dr. Lemons on-call for Oncology at [facility]. He was able to look up the patient's prior notes. It appears that at the end of August was his last oncology visit. At that time the oncologist stated that his CLL was well treated. There was discussion in that note about cognitive decline. Had a discussion with the oncologist about treatment options to include keeping at this facility and doing a thoracentesis and/or limitations here with regard to the oncologic service/Neurology Service verses transferring for further evaluation and treatment. I do feel that it is better for the patient to be in a facility that has these specialists availability. There were no beds available this evening. Plan will be is to keep patient in the emergency department this evening. Thoracentesis was ordered with labs for the fluid. Social work consult placed. Physical therapy consult placed. Was informed by nursing staff that during the administration of the night meds the patient seem to have problems swallowing. He seem to have problems moving his left arm in keeping his arm up in the air. I went to evaluate the patient. His cranial nerves were unremarkable. He was able to speak. He was able to say that he was in the hospital. Was able to say his 's name. He was able to shake his head yes or no to answer questions. He did state that he was fairly tired. He was able to wiggle his toes on both legs although not able to lift his legs off the bed. This appears to be unchanged from prior. He did seem to have more coordination with his right upper extremity. Was able to give a thumbs up on this side. Had difficulty moving his left side. It is difficult to obtain a NIH score because of his baseline lower extremity weakness. Besides his left arm changes his neurologic status seems to be the same as his presenting status. Patient was evaluated short time later and he is now able to move his left arm. Is able to give a thumbs-up on his left arm. Is able to do a [id number] however has some difficulty with this. Considered acute CVA however given his presentation and the fact that he seems to be having a decline over the past couple days and weeks and the localized left arm weakness for very short period of time that seems to be back to baseline I do not feel the patient is a candidate for tPA. Patient would benefit from an MRI however there is no availability of MRI currently at this facility. I re-contacted the [facility] and updated them on the patient's neurologic status. Continues to be no bed availability. Will continue to proceed with plan as stated above. Will continue to monitor here in the ER. Patient's heart rate has been gradually increasing. It suddenly went to the 120s. Was sinus rhythm on the monitor. I went to evaluate the patient. Was somewhat lying on his side. I went to adjust him in bed found that there was vomit down the side of the bed down the side of his face. His who was resting at bedside stated that she never heard him vomit. He has coarse breath sounds. We were able to suction the patient. Oxygen saturations were in the low 90s. Was placed on oxygen by nasal cannula. Repeat vital signs were obtained. Patient now has an axillary temperature of 100.4?. He does feel warm to the touch. Blood cultures were obtained. Lactate procalcitonin obtained. Will start the patient on Zosyn/vancomycin. Patient's heart rate improved to 108. Has never been hypotensive. Repeat chest x-ray was obtained. No acute findings noted. He is following commands but is certainly less oriented than when he initially arrived. I discussed with the patient's his wishes on potential intubation. She produced a paperwork signed by the patient dated in 2012 that specifically stated he did not want intubated. There was no mention about cardiac resuscitation. Patient's stated that she felt that this 2013 paper still held true today. I did update the [facility] transfer center of the offense to include his current mental status and oxygen requirements. We will continue with the plan for transfer. Care turned over to Dr. tran to continue to observe until transfer. <Frances Tran MD - Last Filed: 11/06/21 18:33> Lab Data Labs: Lab Results 11/05/21 11/05/21 11/05/21 Range/Units 18:20 18:20 18:20 WBC 17.8 H (4.5-11.0) X10^3/uL RBC 4.38 L (4.5-5.9) X10^6/uL Hgb 13.9 (13.5-17.5) g/dL Hct 40.9 L (41-53) % MCV 93.2 (80-100) fL MCH 31.6 (26-34) PG MCHC 33.9 (30-36) % RDW 16.2 H (11.6-14.8) % Plt Count 84 L (150-400) X10^3/uL Neut % (Auto) Not Reportable Lymph % (Auto) Not Reportable [place] % (Auto) Not Reportable Eos % (Auto) Not Reportable Baso % (Auto) Not Reportable Lymph # (Auto) Not Reportable [place] # (Auto) Not Reportable Baso # (Auto) Not Reportable Total Counted 100 Seg Neutrophils % 5.0 L (38-70) % Band Neutrophils % 3.0 (3-7) % Lymphocytes % (Manual) 89.0 H (25-45) % Monocytes % (Manual) 3.0 (2-11) % Neutrophils # (Manual) 1424 L (5279-3941) /uL RBC Morphology See below Anisocytosis 1+ H Sodium 137 (137-145) mmol/L Potassium 4.7 (3.4-5.1) mmol/L Chloride 101 (98-107) mmol/L Carbon Dioxide 30 (22-32) mmol/L BUN 20 (9-20) mg/dL Creatinine 1.12 (0.66-1.25) mg/dL Estimated GFR > 60.0 (>60) mL/min BUN/Creatinine Ratio 17.9 (6-22) Glucose 134 H (80-110) mg/dL Lactate (0.7-2.1) mmol/L Calcium 9.2 (8.4-10.2) mg/dL Total Bilirubin 1.0 (0.2-1.3) mg/dL AST 39 (17-59) IU/L ALT 18 (<50) IU/L Alkaline Phosphatase 67 (38-126) U/L Total Protein 7.3 (6.3-8.2) g/dL Albumin 4.5 (3.5-5.0) g/dL Globulin 2.8 (1.7-4.1) g/dL Albumin/Globulin Ratio 1.6 (1.0-2.8) Lipase 36 (23-300) U/L Procalcitonin (<0.5) ng/mL Ur Bilirubin Confirm (Negative) Urine RBC (0-5/HPF) Urine WBC (0-5/HPF) Ur Squamous Epith Cells (0-5/HPF) Urine Bacteria (None) Ur Culture Indicated? SARS-CoV-2 (PCR) Negative (Negative) 11/05/21 11/06/21 11/06/21 Range/Units 20:00 06:25 06:25 WBC (4.5-11.0) X10^3/uL RBC (4.5-5.9) X10^6/uL Hgb (13.5-17.5) g/dL Hct (41-53) % MCV (80-100) fL MCH (26-34) PG MCHC (30-36) % RDW (11.6-14.8) % Plt Count (150-400) X10^3/uL Neut % (Auto) Lymph % (Auto) [place] % (Auto) Eos % (Auto) Baso % (Auto) Lymph # (Auto) [place] # (Auto) Baso # (Auto) Total Counted Seg Neutrophils % (38-70) % Band Neutrophils % (3-7) % Lymphocytes % (Manual) (25-45) % Monocytes % (Manual) (2-11) % Neutrophils # (Manual) (4257-3430) /uL RBC Morphology Anisocytosis Sodium (137-145) mmol/L Potassium (3.4-5.1) mmol/L Chloride (98-107) mmol/L Carbon Dioxide (22-32) mmol/L BUN (9-20) mg/dL Creatinine (0.66-1.25) mg/dL Estimated GFR (>60) mL/min BUN/Creatinine Ratio (6-22) Glucose (80-110) mg/dL Lactate 1.8 (0.7-2.1) mmol/L Calcium (8.4-10.2) mg/dL Total Bilirubin (0.2-1.3) mg/dL AST (17-59) IU/L ALT (<50) IU/L Alkaline Phosphatase (38-126) U/L Total Protein (6.3-8.2) g/dL Albumin (3.5-5.0) g/dL Globulin (1.7-4.1) g/dL Albumin/Globulin Ratio (1.0-2.8) Lipase (23-300) U/L Procalcitonin 0.39 (<0.5) ng/mL Ur Bilirubin Confirm Negative (Negative) Urine RBC 0-1/hpf (0-5/HPF) Urine WBC 0-1/hpf (0-5/HPF) Ur Squamous Epith Cells 0-1 /hpf (0-5/HPF) Urine Bacteria Few (2-10) H (None) Ur Culture Indicated? Cult not indicated SARS-CoV-2 (PCR) (Negative) Urine Dip Bedside Urine Glucose Negative Bedside Urine Bilirubin + 1 Bedside Urine Ketone - Negative Urine Specific [place] 1.025 Bedside Urine Occult Blood - Negative Bedside Urine pH 6.0 Bedside Urine Protein + 30 Bedside Urine Urobilinogen - Negative Bedside Urine Nitrite - Negative Bedside Urine Leukocytes - Negative Esterase Point of care testing: Urine Dip Bedside Urine Glucose Negative Bedside Urine Bilirubin + 1 Bedside Urine Ketone - Negative Urine Specific [place] 1.025 Bedside Urine Occult Blood - Negative Bedside Urine pH 6.0 Bedside Urine Protein + 30 Bedside Urine Urobilinogen - Negative Bedside Urine Nitrite - Negative Bedside Urine Leukocytes - Negative Esterase Discharge Plan Departure Patient Disposition: [facility] Clinical Impression: CLL (chronic lymphocytic leukemia), Confusion, Weakness, Pleural effusion Prescriptions: No Action atorvastatin 40 mg tablet 40 mg PO DAILY 0RF multivitamin Tablet 1 tab PO DAILY 0RF aspirin [Adult Low Dose Aspirin] 81 mg tablet,delayed release (DR/EC) 162 mg PO QPM 0RF metoprolol succinate 25 mg tablet extended release 24 hr 12.5 mg PO QPM 0RF omeprazole 20 mg capsule,delayed release(DR/EC) 20 mg PO DAILY Qty: 30 0RF promethazine 25 mg tablet 25 mg PO TID PRN0RF tamsulosin 0.4 mg capsule 0.4 mg PO .QOTHERDAY 0RF (DME) Disabled Parking See Rx Instructions .ROUTE .MEDSUPPLY Qty: 1 0RF Rx Instructions: Patient qualifies for disabled parking as per the attached form. Referrals: Red Capone MD [Primary Care Provider] -
--- NOTE | 2021-11-05 20:15 | DI.CT.S_ITS ---
PROCEDURE: CT ABDOMEN PELVIS W CON INDICATIONS: Generalized abdominal pain TECHNIQUE: After the administration of intravenous contrast, axial sections acquired from the lung bases to the pubic symphysis. Coronal and sagittal reformats were performed. For radiation dose reduction, the following was used: automated exposure control, adjustment of mA and/or kV according to patient size. COMPARISON: Outside Facility, RG, CT CHEST/ABD/PEL W/CONTRAST, 08/20/2015, 17:36. FINDINGS: Image quality: Excellent. Lung bases: Large right-sided pleural fluid collection. Heart: Dense atherosclerotic calcifications noted in the visualized coronary vasculature. ABDOMEN: Liver: Liver has mildly nodular margins compatible cirrhosis. Portal vein is mildly enlarged measuring 2 centimeters. Gallbladder: Unremarkable. Biliary ducts: Unremarkable. Pancreas: Unremarkable. Spleen: Spleen is enlarged measuring 19.1 centimeters in long axis. Splenorenal venous varices noted likely related to sequela of chronic portal hypertension. Adrenal Glands: Unremarkable. Kidneys and Ureters: Bilateral renal cysts including a large 10.1 centimeter exophytic right renal cyst which has a few coarse calcifications in the periphery. Stomach and Bowel: Stomach, small bowel loops, and colon are unremarkable. Peritoneum: No abnormal intraperitoneal fluid. No free air. Ventral Wall: No hernias. Abdominal Nodes: Prominent and mildly enlarged periportal periaortic lymph nodes noted. Multiple enlarged peripancreatic lymph nodes are noted with largest node measuring 3.3 centimeters.. Vessels: Aorta and inferior vena cava are normal in size. Scattered atherosclerotic calcifications involving the abdominal and pelvic vasculature. PELVIS: Pelvic Organs: Unremarkable. Bladder: Unremarkable. Pelvic Nodes: No enlarged lymph nodes. Miscellaneous: No hernias are seen. Bones: Spine degenerative disc disease and facet arthropathy. IMPRESSION: 1. Large right-sided pleural effusion. 2. Cirrhotic appearing liver. 3. Splenomegaly with splenorenal venous varices compatible with sequela of chronic portal hypertension. 4. Peripancreatic and periportal lymphadenopathy with multiple prominent and mildly enlarged periaortic lymph nodes. Findings suspicious for lymphoma or metastatic disease. 5. Atherosclerosis including the coronary vasculature. 6. Multiple bilateral renal cysts. Dictated by: Sarah Guadarrama MD, PhD on 11/05/2021 at 21:02 Approved by: Sarah Guadarrama MD, PhD on 11/05/2021 at 21:10
--- NOTE | 2021-11-05 20:15 | DI.CT.S_ITS ---
PROCEDURE: CT HEAD/BRAIN WO CON INDICATIONS: Weakness, cannot walk TECHNIQUE: Noncontrast 4.5 mm thick angled axial sections acquired from the foramen magnum to the vertex, with coronal and sagittal reformats. For radiation dose reduction, the following was used: automated exposure control, adjustment of mA and/or kV according to patient size. COMPARISON: None. FINDINGS: Image quality: Excellent. CSF spaces: Basal cisterns are patent. No extra-axial fluid collections. The ventricles are symmetric in size and shape. Brain: No intracranial bleeds or masses. There is cerebral volume loss for age, with resultant ventricular and sulcal prominence. There are periventricular and deep white matter chronic small vessel ischemic changes. There is intracranial internal carotid artery atherosclerosis. Skull and face: Calvarium and visualized facial bones appear intact, without suspicious lesions. Sinuses: Visualized sinuses and mastoids are clear. IMPRESSION: No acute intracranial disease process. Dictated by: Sarah Guadarrama MD, PhD on 11/05/2021 at 20:59 Approved by: Sarah Guadarrama MD, PhD on 11/05/2021 at 21:01
[2021-11-05 20:38] LABS: Neutrophils Absolute Manual 1424 /uL (3000-5900); Total Cells Counted 100
[2021-11-05 20:40] LABS: Anisocytosis 1+
--- NOTE | 2021-11-05 20:42 | DI.CT.S_ITS ---
PROCEDURE: CT CHEST W CON INDICATIONS: Right sided effusion with hx of CLL TECHNIQUE: After the administration of intravenous contrast, 5 mm thick sections acquired from the pulmonary apices to the posterior costophrenic angles. 1 mm axial lung, 5 mm thick coronal and sagittal reformats and 7 mm axial MIP were acquired. For radiation dose reduction, the following was used: automated exposure control, adjustment of mA and/or kV according to patient size. COMPARISON: None. FINDINGS: Image quality: Excellent. Lungs and pleura: No acute air space opacities. Large right-sided pleural effusion. Central and peripheral airways are patent and normal in caliber. Mediastinum: Heart size is normal. Status post CABG procedure. Atherosclerotic calcifications in the coronary vascular, aorta in the great vessels. No pericardial effusion. Enlarged mediastinal lymph nodes are noted. No hilar adenopathy by size criteria. Thoracic aorta and central pulmonary arteries are normal in size. Esophagus is normal in caliber. No hiatal hernia. Bones and chest wall: No suspicious bony lesions. No vertebral body compression fractures. Enlarged bilateral supraclavicular lymph nodes noted. Enlarged left subpectoral lymph nodes noted. Thyroid gland is within normal limits.. Abdomen: Visualized upper abdominal solid organs appear normal. Upper abdominal bowel loops are normal in caliber. Enlarged lymph node noted anterior to the right lobe of the liver. IMPRESSION: 1. Large right-sided pleural effusion. 2. Mediastinal, bilateral supraclavicular and left subpectoral lymphadenopathy compatible port history of CLL. 3. Atherosclerosis including dense atherosclerotic calcifications in the coronary vessels. Postsurgical changes compatible prior CABG procedure noted. Dictated by: Sarah Guadarrama MD, PhD on 11/05/2021 at 21:25 Approved by: Sarah Guadarrama MD, PhD on 11/05/2021 at 21:29
[2021-11-05 21:02] LABS: Ictotest Urine Negative (Negative)
[2021-11-05 21:03] LABS: Bacteria Urine Few (2-10); Culture Indicated Urine Cult Not Indicated; RBC Urine 0-1/HPF (0-5/HPF); Squamous Epithelial Cell Urine 0-1 /HPF (0-5/HPF); WBC Urine 0-1/HPF (0-5/HPF)
[2021-11-05] MEDS: ONDANSETRON 4 MG/2 ML INJ IV (21:14)
--- NOTE | 2021-11-05 23:51 | PC.NURSE ---
Verbal order from Dr Hernandez to submit for patient's night time medications. Verified medications with . Entered accordingly
[2021-11-06] VITALS (23 sets, daily range): BP systolic 113–186; BP diastolic 66–92; PULSE 101–115; RESP 20–36; TEMP 38.2; O2SAT 90–98
[2021-11-06] MEDS: TAMSULOSIN 0.4 MG CAPSULE PO (00:13)
[2021-11-06] MEDS: ATORVASTATIN 20 MG TABLET 40 MG PO (00:13)
[2021-11-06] MEDS: METOPROLOL ER 25 MG TABLET 12.5 MG PO (00:13)
[2021-11-06] MEDS: MIRTAZAPINE 15 MG TABLET 30 MG PO (00:13)
[2021-11-06] MEDS: ASPIRIN EC 81 MG TABLET PO (00:15)
[2021-11-06] MEDS: ONDANSETRON 4 MG/2 ML INJ IV (00:43)
--- NOTE | 2021-11-06 00:46 | PC.NURSE ---
0010 obtained patient care, while getting patient transferred over to hospital bed, noticed patient was minimally using his left side, one word answers. he is not all there states his . Patient states patient normally swallows pills with no difficulty. Patient provided night time medications and water, patient pocketed pills in mouth requiring coaching to swallow. Patient swallowed pills provided additional water which he again required additional coaching to swallow. Patient had weak cough following swallowing pills. Dr Hernandez called to bedside, for concerns in change in patients neurological status. 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 Oriented to self. Denies pain. Patient indicates he is nauseated, provided additional anti nausea medications. Over approx 15 min patient began using left arm more. 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
--- NOTE | 2021-11-06 06:09 | DI.RAD.S_ITS ---
PROCEDURE: XR CHEST 1V INDICATIONS: possible aspiration TECHNIQUE: One view of the chest was acquired. COMPARISON: [facility], CR, XR CHEST 2V, 06/03/2021, 10:02. FINDINGS: Surgical changes and devices: Median sternotomy wires are present and appear intact. Postsurgical changes of prior revascularization procedure. Lungs and pleura: Minimal patchy bibasilar opacities without focal consolidation. Minimal blunting of the right costophrenic angle not significantly changed compared to June 03, 2021 study. This may represent pleural thickening/scarring versus trace pleural effusion. No pneumothorax. Mediastinum: Mediastinal contours appear stable. Heart size is normal. Bones and chest wall: No suspicious bony lesions. Overlying soft tissues appear unremarkable. IMPRESSION: Minimal patchy bibasilar opacities possibly representing atelectasis versus focal airspace disease. No focal consolidation seen. Stable appearance of minimal blunting of the right costophrenic angle which may represent pleural thickening/scarring versus trace right pleural effusion. No significant discrepancy with the [facility] radiology preliminary report. Dictated by: Sean Mayo M.D. on 11/06/2021 at 7:33 Approved by: Sean Mayo M.D. on 11/06/2021 at 7:36
--- NOTE | 2021-11-06 06:20 | PC.NURSE ---
Pt's spo2 dropped to 88% and heart rate increased to 125. Checked pt and pt had emesis with course breathing. RT in to room to deep suction pt. Oxygen applied via nasal cannula. Provider at bedside.
[2021-11-06 06:49] LABS: Lactate (Lactic Acid) 1.8 mmol/L (0.7-2.1)
[2021-11-06] MEDS: SODIUM CHLORIDE 0.9% 1,000 ML 100 ML IV (06:50)
[2021-11-06] MEDS: METOCLOPRAMIDE 10 MG/2 ML INJ IV (06:50)
[2021-11-06] MEDS: PIPERACILLIN/TAZO 4.5 GM in SODIUM CHLORIDE 0.9% 100 ML 200 ML IV (06:51)
[2021-11-06 07:07] LABS: Procalcitonin 0.39 ng/mL (<0.5)
--- NOTE | 2021-11-06 07:28 | PC.NURSE ---
Report called to Lien FALL at [facility]
[2021-11-06] MEDS: VANCOMYCIN 2,000 MG/400 ML PIGGYBACK 200 MG IV (07:57)
== END 2021-11-06 10:21 | disposition short-term general hospital (02) ==
PROVIDERS: Emergency Medicine; Emergency Provider Emergency Medicine; PCP Internal Medicine
DX: R53.1 Weakness (principal); C91.10 Chronic lymphocytic leukemia of B-cell type not having achieved remission; R41.0 Disorientation, unspecified; J90 Pleural effusion, not elsewhere classified; Z20.822 Contact with and (suspected) exposure to COVID-19; Z87.891 Personal history of nicotine dependence
CPT/HCPCS: 36415; 70450; 71045; 71260; 74177; 80053; 81003; 81015; 83605; 83690; 84145; 85007; 85025; 87040; 87635; 96365; 96366; 96368; 96375; 96376; 99284; 99285; C9803; J2405; J2543; J2765; Q9967